=== PATIENT | female | born 1990 | race Caucasian/White ===

== ENCOUNTER 2016-06-08 09:48 | Emergency (ER) | payer OTHER ==
[~2016-06-08] VITALS: Ht 170.2 cm; Wt 70.8 kg
[~2016-06-08 09:48] MED LIST: DICY10CA55 PO; DOCU-94 PO; IUD'IUD
[2016-06-08 09:53] VITALS: Ht 170.2 cm; Wt 70.8 kg
[2016-06-08] MEDS ORDERED: BCPILLS PO (10:25)
[2016-06-08] MEDS ORDERED: LUBI8CAP4 PO (10:25)
--- NOTE | 2016-06-08 11:52 | DIAGNOSTIC IMAGING REPORT ---
PA CHEST RADIOGRAPH AND UPRIGHT AND SUPINE AP RADIOGRAPHS OF THE ABDOMEN CLINICAL HISTORY: Evaluate for bowel obstruction. COMPARISON STUDY: Chest radiograph March 29, [address] of the abdomen and pelvis MarchMarch 29, 2016. FINDINGS: Lung volumes are normal. Lungs are clear. There is no pneumothorax or pleural effusion. Cardiac size is normal. Mediastinal contours are normal. There is no free air. Bowel gas pattern is normal. There is a moderate amount stool within the colon. IMPRESSION: 1. No free air or evidence of bowel obstruction. 2. Moderate amount stool within the colon. 3. No acute cardiopulmonary findings. Electronically signed by: Juanpablo Ralph M.D. 06/08/2016 11:51 AM Dictated Date/Time: 06/08/2016 11:45 AM
[2016-06-08 13:16] VITALS: BP 125/76; PULSE 83; TEMP 36.9; O2SAT 96
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
[2016-09-29] MEDS ORDERED: DICY10CA55 PO (12:33)
[2016-09-29] MEDS ORDERED: LEVOIUD (12:33)
== END 2016-06-08 13:18 | disposition home or self-care (01) ==
LOC: C.EDB 09:50
DX: K59.00 Constipation, unspecified (principal); Z87.820 Personal history of traumatic brain injury; Z80.9 Family history of malignant neoplasm, unspecified; Z83.3 Family history of diabetes mellitus; Z82.49 Family history of ischemic heart disease and other diseases of the circulatory system; Z84.1 Family history of disorders of kidney and ureter

== ENCOUNTER → 2016-10-13 | Day surgery (SDC) | payer OTHER ==
[2016-09-29 12:36] VITALS: BMI 23.0
[~2016-10-13] VITALS: Ht 170.2 cm; Wt 67.3 kg
[~2016-10-13] MED LIST changes: -DOCU-94 PO; -IUD'IUD; +LEVOIUD; +LUBI8CAP4 PO
[2016-10-13 08:28] VITALS: Ht 170.2 cm; Wt 67.3 kg
[2016-10-13 08:36] VITALS: BP 108/65; PULSE 76; TEMP 36.6; O2SAT 100
--- NOTE | 2016-10-14 15:22 | Procedure Note ---
Breath Hydrogen Test Interpretation Assessment: Normal Lactulose breath test Plan: Followup with CARISSA Alicea for further evaluation and recommendations
== END | disposition home or self-care (01) ==
LOC: C.GI 08:17
PROVIDERS: ATTEND Internal Medicine
DX: R14.0 Abdominal distension (gaseous) (principal); R19.4 Change in bowel habit

== ENCOUNTER 2023-12-21 11:46 | Inpatient (IN) ==
[2023-12-21] MEDS ORDERED: LIDOCAINE 1% LOCAL 20 ML VIAL INFIL PRN (17:02)
[2023-12-21] MEDS ORDERED: CALCIUM CARBONATE 500 MG CHEWABLE TAB PO PRN (17:02)
--- NOTE | 2023-12-21 17:11 | History & Physical Report ---
Date of Service December 21, 2023 Assessment & Plan (1) Post-dates : Plan: Cervidil for cervical ripening (2) Gestational diabetes: Admission and Anticipated Discharge Date Admission Date: December 21, 2023 History of Present Illness Chief Complaint: induction of labor Primary Care Provider: Nadine Mata MD 33 F P0000 at 40.4 weeks presents to L&D for IOL for post-dates and GDM diet controlled. GBS is positive. Allergies Allergy/AdvReac Type Severity Reaction Status Date / Time No Known Allergies Allergy Verified 10/13/16 09:11 Home Medications Medication Instructions Recorded Confirmed Type ferrous sulfate 325 mg (65 mg 325 mg PO DAILY 12/21/23 12/21/23 History iron) tablet vit no.95-ferrous 1 tab PO DAILY 12/21/23 12/21/23 History fumarate 28 mg-folic acid 800 mcg tablet () Patient History Medical History Anemia Gestational diabetes Mood disorder Social History Smoking Status: Never smoker Hx Alcohol Use: No Hx Substance Use: No Preferred Language: Maori Communication Ability: Effective Diabetes Territory Manager Required: No Beliefs That Will Affect Care: None marital status: Single Current Living Situation: Significant Other Current Living Situation Comment: lives with significant other Other Information That Helps Us Care for You: No Feels Safe at Home: Yes Safety Concerns: Feels Safe At This Time Assistive Devices: None OB History primip GDM diet controlled [employer] History neg Review of Systems All systems reviewed & are unremarkable except as noted in HPI & below Physical Exam Constitutional: WD/WN, vitals as above Eyes: PERRL, conjunctivae normal, anicteric sclerae Respiratory: normal respiratory effort, lungs clear to auscultation Cardiovascular: Rate/Rhythm: regular rate and regular rhythm Gastrointestinal (Abdomen): Inspection/Auscultation: abdomen normal to inspection Musculoskeletal: Extremities: extremities normal to inspection Skin: no rashes, warm and dry Neurologic: patellar DTR's 2+ bilat, sensation intact Psychiatric: A+Ox3, euthymic affect Genitourinary: no vaginal lesions, no adnexal mass Manual OB Exam: + cervical dilation fingertip, + cervical effacement 50% and + station high OB Exam Monitor Tracing: + external FHT monitor used, + external uterine monitor used, + category I and + normal FHT variability cervix is closed/thick/high/posterior/firm EFW 8 lbs. Will start Cervidil for ripening Results & Data Vital Signs (Past 12 Hours) Vital Signs Temp Pulse Resp BP 12/21/23 15:57 36.6 C 20 12/21/23 15:55 102 H 121/83 Code Status & VTE Plan VTE Prophylaxis Plan VTE Prophylaxis will be ordered: No Monitoring External Monitor Cat 1 (1) Post-dates Post-term type: 40-42 weeks gestation Qualified Code(s): O48.0 - Post-term (2) Gestational diabetes Trimester: third trimester Gestational diabetes mellitus control: diet-contro lled Qualified Code(s): O24.410 - Gestational diabetes mellitus in , diet controlled
[2023-12-21 18:08] LABS: Hematocrit (blood only) 37.2 % (37.0-47.0); Hemoglobin 12.8 g/dl (12.0-16.0); Mean Corpuscular Hemoglobin 30.4 pg (25.0-34.0); Mean Corpuscular Hgb Conc 34.4 g/dL (32.0-36.0); Mean Corpuscular Volume 88.4 fL (80.0-100.0); Platelet Count 194 K/uL (130-400); RDW Coefficient of Variation 13.6 % (11.5-14.5); RDW Standard Deviation 44.3 fL (36.4-46.3); Red Blood Count 4.21 M/uL (4.20-5.40); White Blood Count 10.46 K/ul (4.8-10.8)
[2023-12-21] MEDS: DINOPROSTONE 10 MG INSERT PV ONE (18:38)
--- NOTE | 2023-12-21 18:43 | Labor Progress Brief Note ---
Date of Service December 21, 2023 Assessment & Plan Admission and Anticipated Discharge Date Admission Date: December 21, 2023 Physical Exam Genitourinary: OB Exam Monitor Tracing: + external FHT monitor used, + external uterine monitor used, + category I and + normal FHT variability Cervidil 10 mg placed vaginally Results & Data Vital Signs (Past 12 Hours) Vital Signs Temp Pulse Resp BP 12/21/23 18:00 20 12/21/23 18:00 20 12/21/23 18:00 20 12/21/23 18:00 20 12/21/23 16:30 18 12/21/23 16:30 18 12/21/23 15:57 36.6 C 20 12/21/23 15:55 102 H 121/83
--- OUTSIDE RECORDS SUMMARY | 2023-12-21 23:46 | External Medical Summary | Summary of Care ---
Author Name Unknown Organization [facility] Address [address] [place] [address] Phone [phone] Care Team Providers Care Fire Claims Adjuster Name Role Phone Nadine Mata MD Primary Care Provider [phone] Encounter Details Date Type Department Care Team (Late st Contact Info) Description 11/29/2023 Telephone Key Attendant Obstetrics [facility], [place] [address] [place] [address] [place], Nurse Key Attendant [facility] [address], [place] [id number] Allergies No known active allergiesdocumented as of this encounter (statuses as of 11/29/2023) Medications Medication Sig Dispensed Refills Start Date End Date Status Chapin Owens [place]-3 DHA Oral Tablet Chewable Take 1 Tablet by mouth in the morning. Active Iron-Vitamin C 65-125 MG Oral Tablet (Vitron C)Indications:Antepart um anemia complicating Take 1 Tablet by mouth in the morning. 30 Tablet 5 09/29/2023 Active Docusate Sodium 100 MG Oral Capsule (Colace)Indications:An tepartum anemia complicating Take 1 tablet by mouth twice daily as needed for constipation. 60 Capsule 5 09/29/2023 Active OneTouch Verio Flex System w/Device KitIndications:Gestati onal diabetes mellitus (GDM) in third trimester, gestational diabetes method of control unspecified Use to test blood sugars 4 times daily (fasting, 1 hour after breakfast, lunch, and dinner) 1 Kit 10/17/2023 Active OneTouch Verio In Vitro Strip (Glucose Blood)Indications:Gest ational diabetes mellitus (GDM) in third trimester, gestational diabetes method of control unspecified Use to test blood sugars 4 times daily (fasting, 1 hour after breakfast, lunch, and dinner) 100 Strip 6 10/17/2023 Active OneTouch Delica Lancets 30GIndications:Gestati onal diabetes mellitus (GDM) in third trimester, gestational diabetes method of control unspecified Use to test blood sugars 4 times daily (fasting, 1 hour after breakfast, lunch, and dinner) 100 Each 6 10/17/2023 Active Senna 8.6 MG Oral Capsule Take by mouth. Active documented as of this encounter (statuses as of 11/29/2023) Active Problems Problem Noted Date Diagnosed Date Gestational diabetes mellitus (GDM) in third [facility] 10/17/2023 Overview: Diagnosed at 31 weeks Nutrition referral ordered OneTouch Verio meter Lab Results Component Value Date/Time 50-G GESTATIONAL GLUCOSE, 1 HOUR - [facility] 170 (H) 09/28/2023 09:24 AM 3hr GTT completed at outside lab on 10/17/2023 (per scanned records): FBS - 140 (elevated) 1hr - 183 (elevated) 2hr - 183 (elevated) 3hr - 181 (elevated) 10/23/23: [facility] ADAPT consult complete. Enrolled in [employer]. Instructions provided to report blood sugars each week for [facility] review 10/31/[id number]-[id number]-gvnnyb. Multiple missed post prandial dinner values; messaged to be consistent with testing/reporting. 11/08/[id number]-HZT-[id number] 2 days in the past 8. Sent message via [employer] asking her to update numbers for review. 11/14/[id number] 5 of the past 7 days. 2 elevated fasting blood sugars and rare post prandial elevation 11/22/23: RPM reviewed; no blood sugars reported since 11/13/23. Requested updated blood sugars for this past week to review 11/29/23: RPM reviewed; no blood sugars reported since 11/13/23. Message sent to [facility] PARs to schedule FU ADAPT; patient refused; telephone encounter routed to OB provider Last Assessment & Plan: I reviewed the ultrasound with herThe anatomy that was visualized appears unremarkable and the overall estimated weight is consistent with the 54th percentile for the gestational age. The fetus is in the vertex presentation and the amniotic fluid volume is normal at 12 cm. She states that her blood sugars are well controlled on diet. We discussed the plan of care if she were to need medication to control her blood sugars. At this point, there is no clinical indication for return. Antepartum anemia complicating 024 Overview: Iron started 09/28 once daily. Repeat CBC around 10/26. Order is in. Abnormal glucose tolerance in mother complicatin g 09/29/2023 Overview: 1 hour gtt elevated /7. 3 hour gtt ordered. Encounter for supervision of normal first in first trimester 05/15/2023 Irritable bowel syndrome with constipation 07/06 Mood disorder 03/27/2018 ADVANCE DIRECTIVE INFORMATION 05/12/2005 Overview: Not applicable (under age of 18) Estimated Date of Delivery Comme nts Yes 12/17/2023 Based on last me nstrual period of 03/12/2023 (Exact Date) documented as of this encounter (statuses as of 11/29/2023) Resolved Problems Problem Noted Date Diagnosed Date Resolved Date Viral warts 01/13/2009 03/25/2015 Overview: Tazorac .1% gel at bedtime ICD-10 update of inactive term Adolescent Acne 11/02/2005 03/25/2015 documented as of this encounter (statuses as of 11/29/2023) Immunizations Name Administration Dates Next Due HIB PRP-OMP, 3 dose (Pedvax) 11/13/1990,08/09/18 91 HPV Vaccine, 4-Valent 03/04/2008,11/05/2007,08/2203/07/2008 Meningococcal Conjugate Vacc ine (Menactra/Menveo) 04/19/2017 PPD 03/27/2018, 8,04/19/2017,08/22 Seasonal Influenza, Quadriva lent,with Preserve, 3 yr & above, IM 02/05/2018 Seasonal Influenza, Split, I IV3, With Preserve, Inj 02/10/2017 TDAP (age 10 and older)(Boostrix) 09/28/2023, TDAP, Age 7 and older, IM (Adacel) 05/12/2005 Varicella Vaccine (Chicken Pox) 04/19/2017 documented as of this encounter Social History Tobacco Use Types Packs/Day Years Used Date Smoking Tobacco: Never Smokeless Tobacco: Never Alcohol Use Standard Drinks/Week Comments No 0 (1 standard drink = 0.6 oz pur e alcohol) denies in PHQ-2 Answer Date Recorded PHQ-2 Score -1 07/06/2018 Hunger Vital Sign Answer Date Recorded Within the past 12 months, y ou worried that your food would run out before you got the money to buy more. Never true 08/03/19 24 Within the past 12 months, t he food you bought just didn't last and you didn't have money to get more. Never true 08/03/2023 [place] Depression Scale Answer Date Recorded [place] Depression Scale Total 1 09/28/2023 The thought of harming myself has occurred to me . Never 09/28/2023 Childcare Answer Date Recorded Do you feel overwhelmed with taking care of a child, family member or friend? No 08/03/2023 Does your family need help f inding childcare? (Household - for ages 0-17 years) Not on file 08/03/2023 Clothing Answer Date Recorded Have you been unable to get clothing when it was really needed? No 08/03/2023 Is your family able to get c lothes or diapers when needed? (Household - for ages 0-17 years) Not on file 08/03/2023 Personal Safety Answer Date Recorded Do you feel unsafe or have concerns for your saf ety? No 08/03/2023 Do you have concerns for you r family's safety? (Household - for ages 0-17 years) Not on file 08/03/2023 Utilities Answer Date Recorded Do you have trouble paying y our heating, water, or electric bill? No 08/03/2023 Is your family able to pay t he heat, water, or electric bill? (Household - for ages 0-17 years) Not on file 08/03/2023 Does your family have access to good internet? (Household - for ages 0-17 years) Not on file 08/03/2023 Employment Status Answer Date Recorded Are you unemployed or without regular income? No 08/03/2023 Does the household have a re gular source of income? (Household - for ages 0-17 years) Not on file 08/03/2023 Social Connections Answer Date Recorded How often do you feel lonely or isolated from th ose around you? Never 08/03/2023 Financial Resource Strain Answer Date R ecorded Do you have any trouble payi ng for your medications, or do you think you might in the future? No 08/03/2023 Does your family have troubl e paying for medicine? (Household - for ages 0-17 years) Not on file 08/03/2023 Transportation Needs Answer Date Record ed READ ONLY Do you have troubl e getting a ride to medical visits or work? Never True 08/03/2023 Does your family have a hard time getting a ride to doctors visits? (Household - for ages 0-17 years) Not on file 08/03/2023 Has lack of transportation k ept you from medical appointments, meetings, work, or from getting things needed for daily living? Check all that apply. (Adult - for ages 18 years and over) Not on file 08/03/2023 Do you (or your family) have trouble finding or paying for a ride (transportation)? (Household - for ages 0-17 years) Not on file 08/03/2023 Housing Stability Answer Date Recorded Do you currently live in a s helter or have no steady place to sleep at night? No 08/03/2023 READ ONLY Do you think you a re at risk of becoming homeless? No 08/03/2023 Does your family worry about paying for your home or becoming homeless? (Household - for ages 0-17 years) Not on file 0 08/03/2023 Are you homeless or worried that you might be in the future? (Adult - for ages 18 years and over) Not on file Are you (or your family) hillary eless or worried that you might be in the future? (Household - for ages 0-17 years) Not on file Food Insecurity Answer Date Recorded Do you need food for this week? No 08/03/2023 Are you able to get enough f ood for your family? (Household - for ages 0-17 years) Not on file 08/03/2023 Does your family need food t his week? (Household - for ages 0-17 years) Not on file 08/03/2023 Do you always have enough fo od for your family? (Household - for ages 0-17 years) Not on file 08/03/2023 Estimated Date of Delivery Comme nts Yes 12/17/2023 Based on last me nstrual period of 03/12/2023 (Exact Date) Sex and Gender Information Value Date Recorded Sex Assigned at Female 05/15/2023 1:11 PM EST Gender Identity Female 05/15/2023 1:11 PM EST Sexual Orientation Straight 05/15/2023 1: 11 PM EST Job Start Date Occupation Industry Not on file Not on file Not on file documented as of this encounter Miscellaneous Notes * Telephone Encounter - Carrillo Herrmann CRNP - 11/29/2023 1:26 PM EDT Ms. Johnson has not reported blood sugars to [facility] for review since 11/13/23 despite multiple attempts to contact. She is managed with diet. Can you please ask her to report her blood sugars for [facility] review at her return visit scheduled on 12/01/23. She can update them in the [facility] [employer] [facility] so we can review them Thank you. CARISSA Draper 11/29/2023 1:26 PM * Telephone Encounter - Massiel Alford OSA - 11/29/2023 11:58 AM EDT Patient called back and stated that she wants to decline the follow up ADAPT appointment. She stated that her blood sugars have been fine and that she thinks that she does not need the follow up. I left her know that I would document that in her chart and that I would let the Carrillo Herrmann know. * Telephone Encounter - Massiel Alford OSA - 11/29/2023 11:52 AM EDT Phone call to patient. Left message on [employer] voice mail. Encouraged patient to return call to [facility] to assist with scheduling. Sent MyG documented in this encounter Plan of Treatment Upcoming Encounters Date Type Department Care Team (Late st Contact Info) Description 12/01/2023 9:45 AM EDT Office Visit Gynecology/Obstetrics [facility] [address] [place] [id number] Sowmya Shepard CRNP [address] [place] [address] Health Maintenance Due Date Last Done Comments Depression Screening 07/07/2019 07/06/2018 COVID-19 Vaccine (2022-24 season) 2022 Influenza Vaccine (FLU shot) (#1) 2023 01/04/2023, 02/05/2018, 02/05/2018, Additional history exists Pap Smear 05/15/2026 05/15/2023 Cervical Cancer Screening 05/15/2028 HPV/Co-Test 05/15/2028 05/15/2023 DTaP,Tdap,and Td Vaccines (9 - Td or Tdap) 09/27/2033 09/28/2023, 02/17/2015, 05/12/2005, Additional history exists HPV (Gardasil) Vaccine Completed 8, 11/05/2007, 09/04/2007 Hepatitis B Vaccine Completed 11/13/2013, 12/26/2002, 12/26/2002, Additional history exists MENINGOCOCCAL (MENACTRA/MENVEO) Aged Out 04/19/2017, 04/19/2017 No longer eligibl e based on patient's age to complete this topic Pneumococcal Vaccine: Pediatrics (0 to 5 Years) and At-Risk Patients (6 to 64 Years) Aged Out No longer eligible based on patient's age to complete this topic documented as of this encounter Medical Devices Not on filedocumented as of this encounter Care Teams Fire Claims Adjuster Relationship Specialty Start Date End Date Nadine Mata MD [address] [place] [id number] PCP - General Family Medicine 06/14/19 documented as of this encounter
--- OUTSIDE RECORDS SUMMARY | 2023-12-21 23:46 | External Medical Summary | Summary of Care ---
Author Name Unknown Organization [facility] Address [address] [place] [address] Phone [phone] Care Team Providers Care Bolt Loader Name Role Phone Nadine Mata MD Primary Care Provider [phone] Reason for Visit * Reason Onset Date Comments Appointment 12/01/2023 Encounter Details Date Type Department Care Team (Late st Contact Info) Description 12/01/2023 Telephone [facility] [address] [facility] [place] [address] Sowmya Sehpard CRNP [address] [facility] [place] [place] [address] Appointment Allergies No known active allergiesdocumented as of this encounter (statuses as of 12/19/2023) Medications Medication Sig Dispensed Refills Start Date End Date Status Chapin Owens [place]-3 DHA Oral Tablet Chewable Take 1 Tablet by mouth in the morning. Active Iron-Vitamin C 65-125 MG Oral Tablet (Vitron C)Indications:Antepart um anemia complicating Take 1 Tablet by mouth in the morning. 30 Tablet 5 09/29/2023 Active Docusate Sodium 100 MG Oral Capsule (Colace)Indications:An tepartum anemia complicating Take 1 tablet by mouth twice daily as needed for constipation. 60 Capsule 5 09/29/2023 Active internetstoresTouch Verio Flex System w/Device KitIndications:Gestati onal diabetes [...] as of this encounter (statuses as of 12/19/2023) Active Problems Problem Noted Date Diagnosed Date Gestational diabetes mellitus (GDM) in third [facility] 10/17/2023 Overview: Diagnosed at 31 weeks Nutrition referral ordered OneTouch Verio meter Lab Results Component Value Date/Time 50-G GESTATIONAL GLUCOSE, 1 HOUR - [facility] 170 (H) 09/28/2023 09:24 AM 3hr GTT completed at outside lab on 10/17/2023 (per scanned records): FBS - 140 (elevated) 1hr - 183 (elevated) 2hr - 183 (elevated) 3hr - 181 (elevated) 10/23/23: [facility] ADAPT consult complete. Enrolled in [employer]. Instructions provided to report blood sugars each week for [facility] review 10/31/[id number]-fzhsyu. Multiple missed post prandial dinner values; messaged to be consistent with testing/reporting. 11/08/[id number] 2 days in the past 8. Sent message via [employer] asking her to update numbers for review. 11/14/[id number]-ESS-blkvbedm 5 of the past 7 days. 2 elevated fasting blood sugars and rare post prandial elevation 11/22/23: RPM reviewed; no blood sugars reported since 11/13/23. Requested updated blood sugars for this past week to review 11/29/23: RPM reviewed; no blood sugars reported since 11/13/23. Message sent to [facility] PARs to schedule FU ADAPT; patient refused; telephone encounter routed to OB provider 12/01/23: Per OB note: "checking blood sugars 4 times a day, not logging them or sending to ADAPT. Reports that all readings for several weeks have been in range. She is aware that uncontrolled GDM can cause LGA, polyhydramnios, preeclampsia, stillbirth. Will notify office if readings are elevated or with any concerns." 12/06/[id number]-HVN-jek reporting 12/13/[id number]-LPN-yqo reporting Last Assessment & Plan: I reviewed the [...] Antepartum anemia complicating 024 Overview: Iron started 7 once daily. Repeat CBC around 10/26. Order is in. Abnormal glucose tolerance in mother complicatin g 09/29/2023 Overview: 1 hour gtt elevated 6/7. 3 hour gtt ordered. Encounter for supervision of normal first in first trimester 05/15/2023 Irritable bowel syndrome with constipation 07/06 Mood disorder 03/27/2018 ADVANCE DIRECTIVE INFORMATION 05/12/2005 Overview: Not applicable (under age of 18) Estimated Date of Delivery Comme nts Yes 12/17/2023 Based on last me nstrual period of 03/12/2023 (Exact Date) documented as of this encounter (statuses as of 12/19/2023) Resolved Problems Problem Noted Date Diagnosed Date Resolved Date Viral warts 01/13/2009 03/25/2015 Overview: Tazorac .1% gel at bedtime ICD-10 update of inactive term Adolescent Acne 11/02/2005 03/25/2015 documented as of this encounter (statuses as of 12/19/2023) Immunizations Name Administration Dates Next Due HIB [...] money to get more. Never true 08/03/2023 [place] Depression Scale Answer Date Recorded [place] Depression Scale Total 1 09/28/2023 The thought [...] 08/03/2023 Does the household have a re lar source of income? (Household - for ages [...] encounter Miscellaneous Notes * Telephone Encounter - Josselin Roy OSA - 12/01/2023 10:14 AM EDT Return in about 1 week (around 12/08/2023) for diana. Would like it on the Due to having off workthat day. She said anytime will work. documented in this encounter Plan of Treatment Health Maintenance Due Date Last Done Comments Depression Screening 07/07/2019 07/06/2018 COVID-19 Vaccine (24 season) 2022 Influenza Vaccine (FLU shot) (#1) 2023 01/04/2023, 02/05/2018, 02/05/2018, Additional history exists Pap Smear 05/15/2026 05/15/2023 Cervical Cancer Screening 05/15/2028 HPV/Co-Test 05/15/2028 05/15/2023 DTap/Tdap Vaccines (9 - Td or Tdap) 09/27/2033 [...] filedocumented as of this encounter Care Teams Bolt Loader Relationship Specialty Start Date End Date Nadine Mata MD [address] [place] [id number] PCP - General Family Medicine 06/14/19 documented as of this encounter
--- OUTSIDE RECORDS SUMMARY | 2023-12-21 23:46 | External Medical Summary | Summary of Care ---
Author Name Unknown Organization [facility] Address [address] [facility] [place] [address] Phone [phone] Care Team Providers Care Race Engine Builder Name Role Phone Nadine Mata MD Primary Care Provider [phone] Reason for Visit * Reason Comments Return Visit Encounter Details Date Type Department Care Team (Late st Contact Info) Description 12/15/2023 8:45 AM EDT Office Visit Gynecology/Obstetric s [facility] [address] [place] [address] Scooby Kincaid MD [address] [place] [address] Encounter for supervision of normal first in first trimester*; Diet controlled gestational diabetes mellitus (GDM) in third trimester Allergies No known active allergiesdocumented as of this encounter (statuses as of 12/15/2023) Medications Medication Sig Dispensed Refills Start Date End Date Status Chapin Owens [place]-3 DHA Oral Tablet Chewable Take 1 Tablet [...] lunch, and dinner) 1 Kit 10/17/2023 Active [employer] SystemTouch Verio In Vitro Strip (Glucose Blood)Indications:Gest ational diabetes mellitus (GDM) in third trimester, gestational diabetes method of control unspecified Use to test blood sugars 4 times daily (fasting, 1 hour after breakfast, lunch, and dinner) 100 Strip 6 10/17/2023 Active [employer] DelTextPower Lancets 30GIndications:Gestati onal diabetes mellitus (GDM) in third trimester, gestational diabetes method of control unspecified Use to test blood sugars 4 times daily (fasting, 1 hour after breakfast, lunch, and dinner) 100 Each 6 10/17/2023 Active Senna 8.6 MG Oral Capsule Take by mouth. Active documented as of this encounter (statuses as of 12/15/2023) Active Problems Problem Noted Date Diagnosed Date [facility] Overview: Diagnosed at 31 weeks Nutrition referral ordered OneTouch Verio meter Lab Results Component Value Date/Time 50-G GESTATIONAL GLUCOSE, 1 HOUR - [facility] 170 (H) 09/28/2023 09:24 AM 3hr GTT completed at outside lab on 10/17/2023 (per scanned records): FBS - 140 (elevated) 1hr - 183 (elevated) 2hr - 183 (elevated) 3hr - 181 (elevated) 10/23/23: [facility] ADAPT consult complete. Enrolled in [employer]. Instructions provided to report blood sugars each week for [facility] review 10/31/[id number]-HAD-jnezpb. Multiple missed post prandial dinner values; messaged to be consistent with testing/reporting. 11/08/[id number]-mmxayerp 2 days in the past 8. Sent message via [employer] asking her to update numbers for review. 11/14/[id number]-ISN-phzohjuk 5 of the past 7 days. 2 elevated fasting blood sugars and rare post prandial elevation 11/22/23: RPM reviewed; no blood sugars reported since 11/13/23. Requested updated blood sugars for this past week to review 11/29/23: RPM reviewed; no blood sugars reported since 11/13/23. Message sent to [facility] PARs to schedule FU ADAPT; patient refused; [...] readings are elevated or with any concerns." 12/06/[id number]-ZIF-qer reporting 12/13/[id number]-OHP-jyk reporting Last Assessment & Plan: I reviewed [...] as of this encounter (statuses as of 12/15/2023) Resolved Problems Problem Noted Date Diagnosed Date Resolved Date Viral warts 01/13/2009 03/25/2015 Overview: Tazorac .1% gel at bedtime ICD-10 update of inactive term Adolescent Acne 11/02/2005 03/25/2015 documented as of this encounter (statuses as of 12/15/2023) Immunizations Name Administration Dates Next Due HIB [...] money to get more. 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 She tells providers at visit her sugers are fine Pt is scheduled for induction on on 12/20 EFW is ordered today Discussed c/sec with pt if macrosomia by EFW * Colleen Shahid LPN - 12/15/2023 8:28 AM EDT [id number] Denies any concerns documented in this encounter Plan of Treatment Pending Results Name Type Priority Associated Diagnoses Date /Time US PREG FOLLOW-UP EACH FETUS Medical Imaging Routine 12/15/2023 11:39 AM EDT Scheduled Orders Name Type Priority Associated Diagnoses Orde r Schedule US PREG FOLLOW-UP EACH FETUS Medical Imaging Routine Expected: 2023, Expires: 01/14/2025 Health Maintenance Due Date Last Done Comments Depression Screening 07/07/2019 07/06/2018 COVID-19 Vaccine ( season) 2022 Influenza Vaccine (FLU shot) (#1) [...] Not on filedocumented as of this encounter Visit Diagnoses Diagnosis Encounter for supervision of normal first in first trimester- Primary Supervision of normal first Diet controlled gestational diabetes mellitus (GDM) in third trimester documented in this encounter Care Teams Race Engine Builder Relationship Specialty Start Date End Date Nadine Mata MD [address] [place] [id number] PCP - General Family Medicine 06/14/19 documented as of this encounter
--- OUTSIDE RECORDS SUMMARY | 2023-12-21 23:46 | External Medical Summary | Summary of Care ---
Author Name Unknown Organization [facility] Address [address] [facility] [address] Phone [phone] Care Team Providers Care Loading Machine Operator Name Role Phone Nadine Mata MD Primary Care Provider [phone] Reason for Visit * Reason Comments Return Visit Encounter Details Date Type Department Care Team (Late st Contact Info) Description 12/01/2023 9:45 AM EDT Office Visit Gynecology/Obstetric s Berna Mchugh [address] [place] [address] Sowmya Shepard CRNP [address] [facility] [place] [address] Encounter for supervision of normal first in first trimester*; Diet controlled gestational diabetes mellitus (GDM) in third trimester Allergies No known active allergiesdocumented as of this encounter (statuses as of 12/01/2023) Medications Medication Sig Dispensed Refills Start Date End Date Status Chapin Owens [place]-3 DHA Oral Tablet Chewable Take 1 Tablet [...] lunch, and dinner) 1 Kit 10/17/2023 Active WorkSnugTouch Verio In Vitro Strip (Glucose Blood)Indications:Gest ational diabetes mellitus (GDM) in third trimester, gestational diabetes method of control unspecified Use to test blood sugars 4 times daily (fasting, 1 hour after breakfast, lunch, and dinner) 100 Strip 6 10/17/2023 Active [employer] DelShoppable Lancets 30GIndications:Gestati onal diabetes mellitus (GDM) in third trimester, gestational diabetes method of control unspecified Use to test blood sugars 4 times daily (fasting, 1 hour after breakfast, lunch, and dinner) 100 Each 6 10/17/2023 Active Senna 8.6 MG Oral Capsule Take by mouth. Active documented as of this encounter (statuses as of 12/01/2023) Active Problems Problem Noted Date Diagnosed Date Gestational diabetes mellitus (GDM) in third [facility] 10/17/2023 Overview: Diagnosed at 31 weeks Nutrition [...] blood sugars each week for MFM review 10/31/[id number]-tjfljb. Multiple missed post prandial dinner values; messaged to be consistent with testing/reporting. 11/08/[id number] 2 days in the past 8. Sent message via [employer] asking her to update numbers for review. 11/14/[id number] 5 of the past 7 days. 2 elevated fasting blood sugars and rare post prandial elevation 11/22/23: RPM reviewed; no blood sugars reported since 11/13/23. Requested updated blood sugars for this past week to review 11/29/23: RPM reviewed; no blood sugars reported since 11/13/23. Message sent to [facility] PARs to schedule FU ADAPT; patient [...] g 09/29/2023 Overview: 1 hour gtt elevated 09/28. 3 hour gtt ordered. Encounter for supervision of normal first in first trimester 05/15/2023 Irritable bowel syndrome with constipation 07/06 Mood disorder 03/27/2018 ADVANCE DIRECTIVE INFORMATION 05/12/2005 Overview: Not applicable (under age of 18) Estimated Date of Delivery Comme nts Yes 12/17/2023 Based on last me nstrual period of 03/12/2023 (Exact Date) documented as of this encounter (statuses as of 12/01/2023) Resolved Problems Problem Noted Date Diagnosed Date Resolved Date Viral warts 01/13/2009 03/25/2015 Overview: Tazorac .1% gel at bedtime ICD-10 update of inactive term Adolescent Acne 11/02/2005 03/25/2015 documented as of this encounter (statuses as of 12/01/2023) Immunizations Name Administration Dates Next Due HIB [...] money to get more. Never true 08/03/2023 [place] Depression Scale Answer Date Recorded [place] Depression Scale Total 1 09/28/2023 The thought [...] Sign Reading Time Taken Comments Blood Pressure 118/80 12/01/2023 9:50 AM EDT Pulse - - Temperature - - Respiratory Rate - - Oxygen Saturation - - Inhaled Oxygen Concentration - - Weight 94.3 kg (208 lb) 12/01/2023 9:50 AM EDT Height - - Body Mass Index 32.58 09/28/2023 8:44 AM EDT documented in this encounter Progress Notes * Sowmya Shepard CRNP - 12/01/2023 10:07 AM EDT 37w5d BLE edema at the end of a 12 hour shift, she is wearing compression stockings. Works as an ED nurse. She is checking blood sugars 4 times a day, not logging them or sending to ADAPT. Reports that all readings for several weeks have been in range. She is aware that uncontrolled GDM can cause LGA, polyhydramnios, preeclampsia, stillbirth. Will notify office if readings are elevated or with any concerns. Baby is active. Denies regular contractions, bleeding, LOF. CARISSA Eason * Janki Pressley MED ASSIST - 12/01/2023 9:50 AM EDT 37w5d Denies vaginal bleeding/rom + movements Swelling in hands and feet. documented in this encounter Plan of Treatment [...] trimester documented in this encounter Care Teams Loading Machine Operator Relationship Specialty Start Date End Date Nadine Mata MD [address] [place] [address] PCP - General Family Medicine 06/14/19 documented as of this encounter
--- OUTSIDE RECORDS SUMMARY | 2023-12-21 23:46 | External Medical Summary | Summary of Care ---
Author Name Unknown Organization [facility] Address [address] [place] [address] Phone [phone] Care Team Providers Care Seo Analyst Name Role Phone Nadine Mata MD Primary Care Provider [phone] Encounter Details Date Type Department Care Team (Late st Contact Info) Description 11/29/2023 Telephone Adding Machine Servicer Obstetrics Maternal Medicine, [place] [address] [place] [address] [place], Nurse Adding Machine Servicer [facility] [address] [place], [place] [id number] Allergies No known active allergiesdocumented as of this encounter (statuses as of 11/30/2023) Medications Medication Sig Dispensed Refills Start Date End Date Status Chapin Owens [place]-3 DHA Oral Tablet Chewable Take 1 Tablet [...] as of this encounter (statuses as of 11/30/2023) Active Problems Problem Noted Date Diagnosed Date Gestational diabetes mellitus (GDM) in third [facility] 10/17/2023 Overview: Diagnosed at 31 weeks Nutrition referral ordered OneTouch Verio meter Lab Results Component Value Date/Time 50-G GESTATIONAL GLUCOSE, 1 HOUR - [facility] 170 (H) 09/28/2023 09:24 AM 3hr GTT completed at outside lab on 10/17/2023 (per scanned records): FBS - 140 (elevated) 1hr - 183 (elevated) 2hr - 183 (elevated) 3hr - 181 (elevated) 10/23/23: [facility] ADAPT consult complete. Enrolled in [employer]. Instructions provided to report blood sugars each week for [facility] review 10/31/[id number]-nrolgs. Multiple missed post prandial dinner values; messaged to be consistent with testing/reporting. 11/08/[id number] 2 days in the past 8. Sent message via [employer] asking her to update numbers for review. 11/14/[id number] 5 of the past 7 days. 2 elevated fasting blood sugars and rare post prandial elevation 11/22/23: RPM reviewed; no blood sugars reported since 11/13/23. Requested updated blood sugars for this past week to review 11/29/23: RPM reviewed; no blood sugars reported since 11/13/23. Message sent to [facility] PARs to schedule FU ADAPT; patient [...] as of this encounter (statuses as of 11/30/2023) Resolved Problems Problem Noted Date Diagnosed Date Resolved Date Viral warts 01/13/2009 03/25/2015 Overview: Tazorac .1% gel at bedtime ICD-10 update of inactive term Adolescent Acne 11/02/2005 03/25/2015 documented as of this encounter (statuses as of 11/30/2023) Immunizations Name Administration Dates Next Due DTaP Dipth/Tet/Acell Pertussis (Infanrix), Peds 10/07/1993,05/14/1991,1989,08/22,1989 HIB PRP-OMP, 3 dose (Pedvax) 11/13/1990,08/09/18 91,07/04/1990 HPV Vaccine, 4-Valent 03/04/2008,11/05/2007,08/2203/07/2008 Hepatitis B, 0-19 yrs 12/26/2002, 997,10/21/1996,10/22 MMR - Measles/Mumps/Rubella Vaccine 10/21/1996,0 08/09/1990 Meningococcal Conjugate Vacc ine (Menactra/Menveo) 04/19/2017 OPV - Polio Virus Vaccine (Oral) 994,05/14/1991,08/09/1990,08/22,1989 PPD 03/27/2018, 8,04/19/2017,08/22 Seasonal Influenza, Quadriva lent,with Preserve, 3 yr & above, IM 02/05/2018 Seasonal Influenza, Split, I IV3, With Preserve, Inj 02/10/2017 TDAP (age 10 and older)(Boostrix) 09/28/2023, TDAP, Age 7 and older, IM (Adacel) 05/12/2005 Varicella Vaccine (Chicken Pox) 04/19/2017,07/29 documented as of this encounter Social History [...] money to get more. Never true 08/03/2023 [place] Depression Scale Answer Date Recorded [place] Depression Scale Total 1 09/28/2023 The thought [...] No 08/03/2023 Does the household have a [facility] source of income? (Household - for ages [...] encounter Miscellaneous Notes * Telephone Encounter - Kerri Abdi LPN - 11/30/2023 8:41 AM EDT Call to pt, pt states she has not been logging them. States she is checking her glucose levels and thye have been really good. 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 Expressed importance to pt. Kerri Abdi LPN * Telephone Encounter - Carrillo Herrmann CRNP - 11/29/2023 1:26 PM EDT Ms. Johnson has not reported blood sugars to [facility] for review since 11/13/23 despite multiple attempts to contact. She is managed with diet. Can you please ask her to report her blood sugars for [facility] review at her return visit scheduled on [...] Phone call to patient. Left message on [employer]'s voice mail. Encouraged patient to return call to [facility] to assist with scheduling. Sent MyG documented in this encounter Plan of Treatment Upcoming Encounters Date Type Department Care Team (Late st Contact Info) Description 12/01/2023 9:45 AM EDT Office Visit Gynecology/Obstetrics [facility] [address] [place] [address] Sowmya Shepard CRNP [address] [place] [address] Health Maintenance Due Date Last Done Comments Depression Screening 07/07/2019 07/06/2018 COVID-19 Vaccine (2022- season) 2022 Influenza Vaccine (FLU shot) (#1) [...] filedocumented as of this encounter Care Teams Seo Analyst Relationship Specialty Start Date End Date Nadine Mata MD [address] [place] [address] PCP - General Family Medicine 06/14/19 documented as of this encounter
--- OUTSIDE RECORDS SUMMARY | 2023-12-21 23:46 | External Medical Summary | Summary of Care ---
Author Name Unknown Organization [facility] Address [address] [place] [address] Phone [phone] Care Team Providers Care Client Service Associate Name Role Phone Nadine Mata MD Primary Care Provider [phone] Encounter Details Date Type Department Care Team (Late st Contact Info) Description 11/29/2023 Telephone Home Hospice Rn Obstetrics Maternal Medicine, [place] [address] [place] [address] [place], Nurse Home Hospice Rn [facility] [address] [place], [place] [id number] Allergies No known active allergiesdocumented as of this encounter (statuses as of 11/30/2023) Medications Medication Sig Dispensed Refills Start Date End Date Status Chapin Owens [place]-3 DHA Oral Tablet Chewable Take 1 Tablet [...] Date Gestational diabetes mellitus (GDM) in third [facility] 10/17/2023 Overview: Diagnosed at 31 weeks Nutrition referral ordered OneTouch Verio meter Lab Results Component Value Date/Time 50-G GESTATIONAL GLUCOSE, 1 HOUR - [facility] 170 (H) 09/28/2023 09:24 AM 3hr GTT completed at outside lab on 10/17/2023 (per scanned records): FBS - 140 (elevated) 1hr - 183 (elevated) 2hr - 183 (elevated) 3hr - 181 (elevated) 10/23/23: [facility] ADAPT consult complete. Enrolled in [employer]. Instructions provided to report blood sugars each week for [facility] review 10/31/[id number]-hfbcht. Multiple missed post prandial dinner values; messaged to be consistent with testing/reporting. 11/08/[id number]-xcoycafj 2 days in the past 8. Sent message via [employer] asking her to update numbers for review. 11/14/[id number]-tozzhpsn 5 of the past 7 days. 2 elevated fasting blood sugars and rare post prandial elevation 11/22/23: RPM reviewed; no blood sugars reported since 11/13/23. Requested updated blood sugars for this past week to review 11/29/23: RPM reviewed; no blood sugars reported since 11/13/23. Message sent to [facility] PARs to schedule FU ADAPT; patient refused; [...] money to get more. Never true 08/03/2023 [place] Depression Scale Answer Date Recorded [place] Depression Scale Total 1 09/28/2023 The thought [...] No 08/03/2023 Does the household have a [facility] source of income? (Household - [...] Telephone Encounter - Carrillo Herrmann CRNP - 11/30/2023 9:52 AM EDT Thank you for taking the time to call. Please discuss and document with the patient at her next visits the risks of not having her blood sugars reviewed regularly including by not limited tointrauterine demise, preeclampsia, and other maternal and complications. Ms. Johnson is scheduled to have a return visit on 12/01/23 CARISSA Draper 11/30/2023 9:55 AM * Telephone Encounter - Kerri Abdi LPN [...] Johnson has not reported blood sugars to [facility] for review since 11/13/23 despite multiple attempts to contact. She is managed with diet. Can you please ask her to report her blood sugars for MFM review at her return visit scheduled on [...] Phone call to patient. Left message on [employer]'s voice mail. Encouraged patient to return call to [facility] to assist with scheduling. Sent MyG documented in this encounter Plan of Treatment Upcoming Encounters Date Type Department Care Team (Late st Contact Info) Description 12/01/2023 9:45 AM EDT Office Visit [place]necology[place]st[place]s [place] [facility] [address] [place] [address] Sowmya Shepard CRNP [address] [place] [address] Health Maintenance Due Date Last Done Comments [...] filedocumented as of this encounter Care Teams Client Service Associate Relationship Specialty Start Date End Date Nadine Mata MD [address] [place] [id number] PCP - General Family Medicine 06/14/19 documented as of this encounter
--- OUTSIDE RECORDS SUMMARY | 2023-12-21 23:46 | External Medical Summary | Summary of Care ---
Author Name Unknown Organization [facility] Address [address] [place] [address] Phone [phone] Care Team Providers Care Secondary Connector Armature Name Role Phone Nadine Mata MD Primary Care Provider [phone] Encounter Details Date Type Department Care Team (Late st Contact Info) Description 11/29/2023 Telephone Consulting Psychologist Obstetrics Maternal Medicine, [place] [address] [place] [address] [place], Nurse Consulting Psychologist [facility] [address] [place], [place] [phone] Allergies No known active allergiesdocumented as of this encounter (statuses as of 12/01/2023) Medications Medication Sig Dispensed Refills Start Date End Date Status Chapin Owens [place]-3 DHA Oral Tablet Chewable Take 1 Tablet [...] 183 (elevated) 3hr - 181 (elevated) 10/23/23: [facility] ADAPT consult complete. Enrolled in [employer]. Instructions provided to report blood sugars each week for [facility] review 10/31/[id number]-MUT-qjdodk. Multiple missed post prandial dinner values; messaged to be consistent with testing/reporting. 11/08/[id number]-phcmjwwm 2 days in the past 8. Sent message via [employer] asking her to update numbers for review. 11/14/[id number]-wxubxhgn 5 of the past 7 days. 2 elevated fasting blood sugars and rare post prandial elevation 11/22/23: RPM reviewed; no blood sugars reported since 11/13/23. Requested updated blood sugars for this past week to review 11/29/23: RPM reviewed; no blood sugars reported since 11/13/23. Message sent to [facility] PARs to schedule FU ADAPT; patient [...] 12/01/2023) Immunizations Name Administration Dates Next Due DTaP [...] money to get more. Never true 08/03/2023 [place] Depression Scale Answer Date Recorded [place] Depression Scale Total 1 09/28/2023 The thought [...] No 08/03/2023 Does the household have a [facility] source of income? (Household - for ages [...] encounter Miscellaneous Notes * Telephone Encounter - Sowmya Shepard CRNP - 12/01/2023 11:07 AM EDT We discussed risks and complications of not checking blood sugars, pt verbalized understanding. Pt states she is testing blood sugar 4 times a day, every day, and all numbers are in range. States shewill let us know if they are not in range, but does not plan to record them. Message as FYI. * Telephone Encounter - Carrillo Herrmann CRNP [...] Johnson has not reported blood sugars to [facility] for review since 11/13/23 despite multiple [...] Phone call to patient. Left message on [employer]'s voice mail. Encouraged patient to return call to [facility] to assist with scheduling. Sent MyG [...] filedocumented as of this encounter Care Teams Secondary Connector Armature Relationship Specialty Start Date End Date Nadine Mata MD [address] [place] [address] PCP - General Family Medicine 06/14/19 documented as of this encounter"
--- OUTSIDE RECORDS SUMMARY | 2023-12-21 23:47 | External Medical Summary | Summary of Care ---
Author Name Unknown Organization [facility] Address [address] [place] [address] Phone [phone] Care Team Providers Care Assistant Banquet Manager Name Role Phone Nadine Mata MD Primary Care Provider [phone] Encounter Details Date Type Department Care Team (Late st Contact Info) Description 10/19/2023 Orders Only Gynecology/Obstetrics [facility] [address] [place] [address] Blanca Johnson PA-C [address] [place] [address] Allergies No known active allergiesdocumented as of this encounter (statuses as of 10/19/2023) Medications Medication Sig Dispensed Refills Start Date End Date Status Chapin Owens [place]-3 DHA Oral Tablet Chewable Take 1 Tablet by mouth in the morning. Active Iron-Vitamin C 65-125 MG Oral Tablet (Vitron C)Indications:Antepart um anemia complicating Take 1 Tablet by mouth in the morning. 30 Tablet 5 09/29/2023 Active Docusate Sodium 100 MG Oral Capsule (Colace)Indications:An tepartum anemia complicating Take 1 tablet by mouth twice daily as needed for constipation. 60 Capsule 5 09/29/2023 Active TerrafugiaTouch Verio Flex System w/Device KitIndications:Gestati onal diabetes [...] dinner) 100 Strip 6 10/17/2023 Active OneTouch Dellilibeth Lancets 30GIndications:Gestati onal diabetes mellitus (GDM) in third trimester, gestational diabetes method of control unspecified Use to test blood sugars 4 times daily (fasting, 1 hour after breakfast, lunch, and dinner) 100 Each 6 10/17/2023 Active documented as of this encounter (statuses as of 10/19/2023) Active Problems Problem Noted Date Diagnosed Date Gestational diabetes mellitus (GDM) in third [facility] 10/17/2023 Antepartum anemia complicating 024 Overview: Iron started [...] on last me nstrual period of 03/12/2023 documented as of this encounter (statuses as of 10/19/2023) Resolved Problems Problem Noted Date Diagnosed Date Resolved Date Viral warts 01/13/2009 03/25/2015 Overview: Tazorac .1% gel at bedtime ICD-10 update of inactive term Adolescent Acne 11/02/2005 03/25/2015 documented as of this encounter (statuses as of 10/19/2023) Immunizations Name Administration Dates Next Due HIB [...] drink = 0.6 oz pur e alcohol) rare PHQ-2 Answer Date Recorded PHQ-2 Score -1 [...] money to get more. Never true 08/03/2023 [place] Depression Scale Answer Date Recorded [place] Depression Scale Total 1 09/28/2023 The thought [...] on last me nstrual period of 03/12/2023 Sex and Gender Information Value Date Recorded Sex Assigned at Female 05/15/2023 1:11 PM EST Gender Identity Female 05/15/2023 1:11 PM EST Sexual Orientation Straight 05/15/2023 1: 11 PM EST Job Start Date Occupation Industry Not on file Not on file Not on file documented as of this encounter Plan of Treatment Upcoming Encounters Date Type Department Care Team (Late st Contact Info) Description 10/23/2023 9:45 AM EDT Telemedicine Paper Maker Obstetrics Maternal Medicine, [place] [address] [address] Blanca Hernandez CRNP [address] [place] [address] 10/24/2023 3:00 PM EDT Telemedicine Virtual, Nutrition Services [address] [place] [address] Hayde Hayden, JEFFREY [address] [place] [address] [place] [address] 10/30/2023 7:30 AM EDT Office Visit Gynecology/Obstetrics [address] [place] [address] Laura Goldman PA-C [address] [place] [address] Nurse [facility] Return Di [address] [place] [address] 10/31/2023 7:30 AM EDT Office Visit Paper Maker OB Maternal Medicine [facility] Gabby Santo [address] [place] [address] [address] [place] [address] Da Loco MD [address] [place] [facility] [place] [address] 10/31/2023 7:30 AM EDT Imaging Maternal Medicine [facility] Gabby Santo [address] [place] [address] [address] [place] [address] Health Maintenance Due Date Last Done Comments Depression Screening 07/07/2019 07/06/2018 COVID-19 Vaccine ( season) 2022 Pap Smear 05/15/2026 05/15/2023 Cervical Cancer Screening 05/15/2028 HPV/Co-Test 05/15/2028 05/15/2023 DTaP,Tdap,and Td Vaccines (9 - Td or Tdap) 09/27/2033 09/28/2023, 02/17/2015, 05/12/2005, Additional history exists GARDASIL-HPV IMMUNIZATION SERIES Completed 03/04/2008, 11/05/2007, 09/04/2007 Hepatitis B Completed 11/13/2013, 07/2002, 12/26/2002, Additional history exists MENINGOCOCCAL (MENACTRA/MENVEO) Aged Out 04/19/2017, 04/19/2017 No longer eligibl e based on patient's age to complete this topic Influenza Vaccine (FLU shot) Completed , 02/05/2018, 02/05/2018, Additional history exists Pneumococcal Vaccine: Pediatrics (0 to 5 Years) and At-Risk Patients (6 to 64 Years) Aged Out No longer eligible based on patient's age to complete this topic documented as of this encounter Medical Devices Not on filedocumented as of this encounter Care Teams Assistant Banquet Manager Relationship Specialty Start Date End Date Nadine Mata MD [address] [place] [address] PCP - General Family Medicine 06/14/19 documented as of this encounter
--- OUTSIDE RECORDS SUMMARY | 2023-12-21 23:47 | External Medical Summary | Summary of Care ---
Author Name Unknown Organization [facility] Address [address] [facility] [place] [address] Phone [phone] Care Team Providers Care Supervisor White Sugar Name Role Phone Nadine Mata MD Primary Care Provider [phone] Reason for Visit * Reason Comments Return Visit Encounter Details Date Type Department Care Team (Late st Contact Info) Description 11/13/2023 8:45 AM EDT Office Visit Gynecology/Obstetri julianne Mchugh [address] [place] [address] Laura Goldman PA-C [address] [place] [address] Nurse Jeison [facility] Return Di [address] [place] [address] Encounter for supervision of normal first in first trimester*; Diet controlled gestational diabetes mellitus (GDM) in third trimester Allergies No known active allergiesdocumented as of this encounter (statuses as of 11/13/2023) Medications Medication Sig Dispensed Refills Start Date End Date Status Chapin Owens [place]-3 DHA Oral Tablet Chewable Take 1 Tablet [...] as of this encounter (statuses as of 11/13/2023) Active Problems Problem Noted Date Diagnosed Date Gestational diabetes mellitus (GDM) in third [facility] 10/17/2023 Overview: Diagnosed at 31 weeks Nutrition referral ordered OneTouch Verio meter Lab Results Component Value Date/Time 50-G GESTATIONAL GLUCOSE, 1 HOUR - [facility] 170 (H) 09/28/2023 09:24 AM 3hr GTT completed at outside lab on 10/17/2023 (per scanned records): FBS - 140 (elevated) 1hr - 183 (elevated) 2hr - 183 (elevated) 3hr - 181 (elevated) She reports her home blood glucose as following: DATE Fasting 1 hr after Breakfast 1 hr after Lunch 1 hr after Dinner 10/18/23 78 90 104 118 10/19/23 74 91 96 106 10/20/23 95 100 116 143 10/21/23 81 94 96 129 10/22/23 85 117 102 143 10/23/23 87 x x x 10/23/23: MFM ADAPT consult complete. Enrolled in [employer]. Instructions provided to report blood sugars each week for MFM review 10/31/[id number]-[id number]. Multiple missed post prandial dinner values; messaged to be consistent with testing/reporting. 11/08/[id number]-yohscyiy 2 days in the past 8. Sent message via [employer] asking her to update numbers for review. Last Assessment & Plan: I reviewed the [...] as of this encounter (statuses as of 11/13/2023) Resolved Problems Problem Noted Date Diagnosed Date Resolved Date Viral warts 01/13/2009 03/25/2015 Overview: Tazorac .1% gel at bedtime ICD-10 update of inactive term Adolescent Acne 11/02/2005 03/25/2015 documented as of this encounter (statuses as of 11/13/2023) Immunizations Name Administration Dates Next Due HIB [...] money to get more. Never true 08/03/2023 [place] Depression Scale Answer Date Recorded [place] Depression Scale Total 1 09/28/2023 The thought [...] 18 years and over) Not on file 4 Are you (or your family) hillary eless [...] Sign Reading Time Taken Comments Blood Pressure 98/58 11/13/2023 8:49 AM EDT Pulse - - Temperature - - Respiratory Rate - - Oxygen Saturation - - Inhaled Oxygen Concentration - - Weight 90 kg (198 lb 6.4 oz) 11/13/2023 8:49 AM EDT Height - - Body Mass Index 31.07 09/28/2023 8:44 AM EDT documented in this encounter Progress Notes * Laura Goldman PA-C - 11/13/2023 9:01 AM EDT 35w1d Has been trying to report BG when she can. States hard with work as not always able to submit rightaway then it will disappear from glucometer. Denies any elevations. Continues to make adjustments in diet to keep it controlled. Recommend she continue to reports as often as possible. Reviewed GBS with next visit. Denies LOF, contractions, VB. Pos fm. RTC in 1 week Laura Goldman PA-C * Janki Pressley MED ASSIST - 11/13/2023 8:49 AM EDT 35w1d Denies vaginal bleeding/rom + movements No new concerns documented in this encounter Plan of Treatment Upcoming Encounters Date Type Department Care Team (Late st Contact Info) Description 11/23/2023 11:15 AM EDT Office Visit Gynecology/Obstetrics [facility] [address] [place] [address] Radha Santillan MD [address] [address] Health Maintenance Due Date Last Done Comments [...] trimester documented in this encounter Care Teams Supervisor White Sugar Relationship Specialty Start Date End Date Nadine Mata MD [address] [place] [address] PCP - General Family Medicine 06/14/19 documented as of this encounter
--- OUTSIDE RECORDS SUMMARY | 2023-12-21 23:47 | External Medical Summary | Summary of Care ---
Author Name Unknown Organization [facility] Address [address] [place] [address] Phone [phone] Care Team Providers Care Wheelman Name Role Phone Nadine Mata MD Primary Care Provider [phone] Encounter Details Date Type Department Care Team (Late st Contact Info) Description 10/17/2023 Telephone Gynecology/Obstetrics [facility] [address] [facility] [place] [address] Blanca Johnson PA-C [address] [facility] [place] [address] Allergies No known active allergiesdocumented as of this encounter (statuses as of 10/17/2023) Medications Medication Sig Dispensed Refills Start Date End Date Status Chapin Owens [place]-3 DHA Oral Tablet Chewable Take 1 Tablet by mouth in the morning. Active Iron-Vitamin C 65-125 MG Oral Tablet (Vitron C)Indications:Antepart um anemia complicating Take 1 Tablet by mouth in the morning. 30 Tablet 5 09/29/2023 Active Docusate Sodium 100 MG Oral Capsule (Colace)Indications:An tepartum anemia complicating Take 1 tablet by mouth twice daily as needed for constipation. 60 Capsule 5 09/29/2023 Active documented as of this encounter (statuses as of 10/17/2023) Active Problems Problem Noted Date Diagnosed Date Antepartum anemia complicating 06/07/2 024 Overview: Iron started 7 once daily. [...] as of this encounter (statuses as of 10/17/2023) Resolved Problems Problem Noted Date Diagnosed Date Resolved Date Viral warts 01/13/2009 03/25/2015 Overview: Tazorac .1% gel at bedtime ICD-10 update of inactive term Adolescent Acne 11/02/2005 03/25/2015 documented as of this encounter (statuses as of 10/17/2023) Immunizations Name Administration Dates Next Due HIB [...] money to get more. Never true 08/03/2023 [place] Depression Scale Answer Date Recorded [place] Depression Scale Total 1 09/28/2023 The thought [...] encounter Miscellaneous Notes * Telephone Encounter - Wendy Morton RN - 10/17/2023 12:58 PM EDT Received patient's 3 hour glucose results by fax from outside lab. Please review and advise. They are scanned into chart. documented in this encounter Plan of Treatment Upcoming Encounters Date Type Department Care Team (Late st Contact Info) Description 10/30/2023 7:30 AM EDT Office Visit Gynecology/Obstetrics Berna Mchugh [address] [place] [address] Laura Goldman PA-C [address] [place] [address] Nurse Jeison [facility] Return Di [address] [place] [address] Health Maintenance Due Date Last Done Comments [...] filedocumented as of this encounter Care Teams Wheelman Relationship Specialty Start Date End Date Nadine Mata MD [address] [place] [address] PCP - General Family Medicine 06/14/19 documented as of this encounter
--- OUTSIDE RECORDS SUMMARY | 2023-12-21 23:47 | External Medical Summary | Summary of Care ---
Author Name Unknown Organization [facility] Address [address] [place] [address] Phone [phone] Care Team Providers Care Cut In Worker Name Role Phone Nadine Mata MD Primary Care Provider [phone] Reason for Visit * Reason Comments Outpatient Testing Encounter Details Date Type Department Care Team (Late st Contact Info) Description 11/13/2023 9:20 AM EDT Laboratory Laboratory, [facility] [address] [place] [phone] [facility] [address] [place] [address] Antepartum anemia complicating Allergies No known active allergiesdocumented as of this encounter (statuses as of 11/13/2023) Medications Medication Sig Dispensed Refills Start Date End Date Status Chapin Owens [place]-3 DHA Oral Tablet Chewable Take 1 Tablet by mouth in the morning. Active Iron-Vitamin C 65-125 MG Oral Tablet (Vitron C)Indications:Antepart um anemia complicating Take 1 Tablet by mouth in the morning. 30 Tablet 5 09/29/2023 Active Docusate Sodium 100 MG Oral Capsule (Colace)Indications:An tepartum anemia complicating Take 1 tablet by mouth twice daily as needed for constipation. 60 Capsule 5 09/29/2023 Active INSOMENIAToBioPetroClean Verio Flex System w/Device KitIndications:Gestati onal diabetes [...] dinner) 100 Strip 6 10/17/2023 Active OneTouch DelPharmaIN Lancets 30GIndications:Gestati onal diabetes mellitus (GDM) in [...] Date Gestational diabetes mellitus (GDM) in third [facility] 10/17/2023 Overview: Diagnosed at 31 weeks Nutrition [...] 10/23/23: MFM ADAPT consult complete. Enrolled in [employer]. Instructions provided to report blood sugars each week for MFM review 10/31/20235126-AOF-vekytc. Multiple missed post prandial dinner values; messaged to be consistent with testing/reporting. 11/08/20232722-BUF-qtbiowtf 2 days in the past 8. Sent message via [employer] asking her to update numbers for review. [...] g 09/29/2023 Overview: 1 hour gtt elevated /. 3 hour gtt ordered. Encounter for supervision [...] money to get more. Never true 08/03/2023 [place] Depression Scale Answer Date Recorded [place] Depression Scale Total 1 09/28/2023 The thought [...] 11/23/2023 11:15 AM EDT Office Visit Gynecology/Obstetrics [facility] 132 [facility] [place] [address] Radha Santillan MD [address] [place] [address] [place] [phone] Pending Results Name Type Priority Associated Diagnoses Date /Time CBC WITH WBC DIFFERENTIAL AND ANEMIA REFLEX WORKUP Lab Routine Antepartum anemia complicating 11/13/2023 9:19 AM EDT ANEMIA CBC Lab Routine Antepartum anemia complicating 11/13/2023 9:19 AM EDT DIFFERENTIAL, AUTOMATED Lab Routine Antepartum anemia complicating 11/13/2023 9:19 AM EDT ANEMIA REFLEX CHEMISTRY HOLD Lab Routine Antepartum anemia complicating 11/13/2023 9:19 AM EDT Health Maintenance Due Date Last Done Comments [...] as of this encounter Visit Diagnoses Diagnosis Antepartum anemia complicating Anemia, antepartum documented in this encounter Care Teams Cut In Worker Relationship Specialty Start Date End Date Nadine Mata MD [address] [place] [id number] PCP - General Family Medicine 06/14/19 documented as of this encounter
--- OUTSIDE RECORDS SUMMARY | 2023-12-21 23:47 | External Medical Summary | Summary of Care ---
Author Name Unknown Organization [facility] Address [address] [place] [address] Phone [phone] Care Team Providers Care Skirt Panel Assembler Name Role Phone Nadine Mata MD Primary Care Provider [phone] Encounter Details Date Type Department Care Team (Late st Contact Info) Description 10/17/2023 Telephone Gynecology/Obstetrics [facility] 132 [facility] [place] [address] Blanca Johnson PA-C 400 [facility] [place] [address] Allergies No known active allergiesdocumented as of this encounter (statuses as of 10/17/2023) Medications Medication Sig Dispensed Refills Start Date End Date Status Chapin Owens [place]-3 DHA Oral Tablet Chewable Take 1 Tablet [...] money to get more. Never true 08/03/2023 [place] Depression Scale Answer Date Recorded [place] Depression Scale Total 1 09/28/2023 The thought [...] Berna Mchugh [address] [place] [address] Laura Goldman PA-C [address] [place] [address] Nurse Jeison [facility] Return Di [address] [place] [address] Health Maintenance Due Date Last Done Comments [...] filedocumented as of this encounter Care Teams Skirt Panel Assembler Relationship Specialty Start Date End Date Nadine Mata MD [address] [place] [address] PCP - General Family Medicine 06/14/19 documented as of this encounter
--- OUTSIDE RECORDS SUMMARY | 2023-12-21 23:47 | External Medical Summary | Summary of Care ---
Author Name Unknown Organization [facility] Address [address] [place] [address] Phone [phone] Care Team Providers Care Rim Buster Name Role Phone Nadine Mata MD Primary Care Provider [phone] Reason for Visit * Reason Onset Date Comments Home Monitoring Orders Only 10/24/2023 Encounter Details Date Type Department Care Team (Late st Contact Info) Description 10/24/2023 Home Monitoring Care Coordination [address] [place] [address] Blanca Hernandez CRNP [address] [place] [address] Gestational diabetes mellitus (GDM) in third trimester* Allergies No known active allergiesdocumented as of this encounter (statuses as of 10/24/2023) Medications Medication Sig Dispensed Refills Start Date End Date Status Chapin Owens [place]-3 DHA Oral Tablet Chewable Take 1 Tablet [...] dinner) 100 Strip 6 10/17/2023 Active OneTouch DelIntelligent Mobile Support Lancets 30GIndications:Gestati onal diabetes mellitus (GDM) in third trimester, gestational diabetes method of control unspecified Use to test blood sugars 4 times daily (fasting, 1 hour after breakfast, lunch, and dinner) 100 Each 6 10/17/2023 Active Senna 8.6 MG Oral Capsule Take by mouth. Active documented as of this encounter (statuses as of 10/24/2023) Active Problems Problem Noted Date Diagnosed Date Gestational diabetes mellitus (GDM) in third [facility] 10/17/2023 Overview: Diagnosed at 31 weeks Nutrition [...] blood sugars each week for MFM review Last Assessment & Plan: CONSIDERATIONS: Reviewed etiology and risks associated with gestational diabetes mellitus (GDM), including risks to , fetus, and maternal progression to Type 2 DM. Instructed on proper use of glucometer; supplies ordered, if indicated. Advised that life-long screening for diabetes is recommended every 1-3 years. RECOMMENDATIONS: Recommend monitoring blood sugars with daily fasting blood sugar (maintained at less than or equal to 95) and 1 hour postprandial measurements (maintained at less than or equal to 140). Medications should be adjusted to maintain these target values. Report levels to MFM (Maternal- Medicine) weekly. Recommend nutrition consult with RDN (Registered Dietitian Beef Pluck Trimmer). Lifestyle changes are also indicated including optimizing gestational weight gain and physical activity of 30 minutes per day, if not otherwise contraindicated in . Insulin is preferred if medications are indicated to optimize euglycemia. Metformin (preferred over glyburide) may also be used in some circumstances. Reviewed the risks and benefits of each. Recommend ultrasound, surveillance and delivery as follows: A1GDM, delivery should be accomplished by 41w0d. A2GDM, recommend growth assessment with MFM every 4 weeks, initiate surveillance at 32 weeks and continue until delivery at 39 weeks. Recommend intrapartum monitoring every 1-2 hours (A2GDM) or every 4 hours (A1GDM) and treat with insulin if indicated. Recommend 2-hour glucose tolerance testing with 75-gram glucose load 6-8 weeks . Antepartum anemia complicating 024 Overview: Iron started [...] as of this encounter (statuses as of 10/24/2023) Resolved Problems Problem Noted Date Diagnosed Date Resolved Date Viral warts 01/13/2009 03/25/2015 Overview: Tazorac .1% gel at bedtime ICD-10 update of inactive term Adolescent Acne 11/02/2005 03/25/2015 documented as of this encounter (statuses as of 10/24/2023) Immunizations Name Administration Dates Next Due HIB [...] money to get more. Never true 08/03/2023 [place] Depression Scale Answer Date Recorded [place] Depression Scale Total 1 09/28/2023 The thought [...] No 08/03/2023 Does the household have a [facility] source of income? (Household - for [...] on file documented as of this encounter Progress Notes * Douglas Barroso, Community Health Clinical Practice Consultant - 10/24/2023 9:28 AM EDT Patient has been successfully enrolled to the [id number] Diabetes Management in program. Standard alarm settings have been set as follows: Singular glucose level > 200 Singular glucose level < 60 Patient has been advised to take blood sugar four times a day (fasting upon waking, and one hour after each meal). Patient has been oriented to remote patient monitoring, assisted with initial device set-up, and provided with instruction and education regarding the program. Patient understands that this monitoring should not be used as a replacement for emergency and/or urgent care. If patient experiences any urgent symptoms, they are aware to call office/news correspondent provider for additional instructions. In emergency situations, they will report directly to the ED for further evaluation. If you would like to customize the alert parameters and/or instructions for this patient, please let me know and we can have them changed. Electronically signed by Douglas Barroso Community Health Clinical Practice Consultant at 10/24/2023 9:29 AM EDT documented in this encounter Plan of Treatment Upcoming Encounters Date Type Department Care Team (Late st Contact Info) Description 10/30/2023 7:30 AM EDT Office Visit Gynecology/Obstetrics Berna Mchugh [address] [facility] [place] [address] Laura Goldman PA-C [address] [place] [address] Nurse Jeison [facility] Return Di [address] [place] [address] 10/31/2023 7:30 AM EDT Office Visit Industrial Relations Representative OB Maternal Medicine [facility] Gabby Santo [address] [place] [address] [address] [place] [address] Da Loco MD [address] [place] [address] 10/31/2023 7:30 AM EDT Imaging Maternal Medicine [facility] Gabby Santo [address] [place] [address] [address] [facility] [address] Health Maintenance Due Date Last Done Comments [...] as of this encounter Visit Diagnoses Diagnosis Gestational diabetes mellitus (GDM) in third trimester- Primary documented in this encounter Care Teams Rim Buster Relationship Specialty Start Date End Date Nadine Mata MD [address] [place] [address] PCP - General Family Medicine 06/14/19 documented as of this encounter
--- OUTSIDE RECORDS SUMMARY | 2023-12-21 23:47 | External Medical Summary | Summary of Care ---
Author Name Unknown Organization [facility] Address [address] [facility] [place] [address] Phone [phone] Care Team Providers Care Technology Integration Specialist Name Role Phone Nadine Mata MD Primary Care Provider Reason for Visit * Reason Comments Healthy Beginnings Return Encounter Details Date Type Department Care Team (Late st Contact Info) Description 10/30/2023 7:30 AM EDT Office Visit Gynecology/Obstetri julianne Mchugh [address] [facility] [place] [address] Laura Goldman PA-C [address] [place] [address] Nurse Jeison [facility] Return Di [address] [place] [address] Encounter for supervision of normal first in first trimester*; Diet controlled gestational diabetes mellitus (GDM) in third trimester Allergies No known active allergiesdocumented as of this encounter (statuses as of 10/30/2023) Medications Medication Sig Dispensed Refills Start Date End Date Status Chapin Owens [place]-3 DHA Oral Tablet Chewable Take 1 Tablet [...] and dinner) 100 Strip 6 10/17/2023 Active iValidate.meTouch Delica Lancets 30GIndications:Gestati onal diabetes mellitus (GDM) in third trimester, gestational diabetes method of control unspecified Use to test blood sugars 4 times daily (fasting, 1 hour after breakfast, lunch, and dinner) 100 Each 6 10/17/2023 Active Senna 8.6 MG Oral Capsule Take by mouth. Active documented as of this encounter (statuses as of 10/30/2023) Active Problems Problem Noted Date Diagnosed Date Gestational diabetes mellitus (GDM) in third [facility] 10/17/2023 Overview: Diagnosed at 31 weeks [...] Recommend nutrition consult with RDN (Registered Dietitian Classroom Assistant). Lifestyle changes are also indicated including optimizing [...] as of this encounter (statuses as of 10/30/2023) Resolved Problems Problem Noted Date Diagnosed Date Resolved Date Viral warts 01/13/2009 03/25/2015 Overview: Tazorac .1% gel at bedtime ICD-10 update of inactive term Adolescent Acne 11/02/2005 03/25/2015 documented as of this encounter (statuses as of 10/30/2023) Immunizations Name Administration Dates Next Due HIB [...] money to get more. Never true 08/03/2023 [place] Depression Scale Answer Date Recorded [place] Depression Scale Total 1 09/28/2023 The thought [...] No 08/03/2023 Does the household have a [facility] source [facility] income? (Household - for ages [...] Sign Reading Time Taken Comments Blood Pressure 108/68 10/30/2023 7:35 AM EDT Pulse - - Temperature - - Respiratory Rate - - Oxygen Saturation - - Inhaled Oxygen Concentration - - Weight 89.5 kg (197 lb 6.4 oz) 10/30/2023 7:35 A M EDT Height - - Body Mass Index 30.92 09/28/2023 8:44 AM EDT documented in this encounter Progress Notes * Laura Goldman PA-C - 10/30/2023 7:40 AM EDT 33w1d Diagnosed with GDM, met with ADAPT team has growth u/s tomorrow. Pt states missed a few reading d/tnot realizing if she doesn't log BG right away it disappears. Otherwise doing well. Denies LOF, VB, contractions. Pos FM. Spouse FMLA paperwork given to her today. RTC in 2 weeks Laura Goldman PA-C * Janki Pressley MED ASSIST - 10/30/2023 7:35 AM EDT 33w1d Denies vaginal bleeding/rom + movements No new concerns documented in this encounter Plan of Treatment Upcoming Encounters Date Type Department Care Team (Late st Contact Info) Description 10/31/2023 7:30 AM EDT Office Visit Child Care Associate OB Maternal Medicine [facility] Gabby Santo [address] [place] [address] Dr [address] [facility] [address] Da Loco MD [address] [place] [address] 10/31/2023 7:30 AM EDT Imaging Maternal Medicine [facility] Gabby Santo [address] [place] [address] [address] [place] [address] 11/13/2023 8:45 AM EDT Office Visit Gynecology/Obstetrics Berna Mchugh [address] [facility] [place] [address] Laura Goldman PA-C [address] [place] [address] Nurse Jeison [facility] Return Di [address] [place] [address] Health Maintenance Due Date Last Done Comments [...] trimester documented in this encounter Care Teams Technology Integration Specialist Relationship Specialty Start Date End Date Nadine Mata MD [address] [place] [address] [place] [address] PCP - General Family Medicine 06/14/19 documented as of this encounter
--- OUTSIDE RECORDS SUMMARY | 2023-12-21 23:47 | External Medical Summary | Summary of Care ---
Author Name Unknown Organization [facility] Address [address] [place] [address] Phone [phone] Care Team Providers Care Finishing Manager Name Role Phone Nadine Mata MD Primary Care Provider [phone] Reason for Visit * Reason Onset Date Comments Referral 10/17/2023 Encounter Details Date Type Department Care Team (Late st Contact Info) Description 10/17/2023 Telephone Coupling Machine Operator Obstetrics Maternal Medicine, [place] [address] [place], [place] [id number] [place], Nurse Coupling Machine Operator [facility] [address] [place], [place] [phone] Referral Allergies No known active allergiesdocumented as of this encounter (statuses as of 10/17/2023) Medications Medication Sig Dispensed Refills Start Date End Date Status Chapin Owens [place]-3 DHA Oral Tablet Chewable Take 1 Tablet by mouth in the morning. Active Iron-Vitamin C 65-125 MG Oral Tablet (Vitron C)Indications:Antepart um anemia complicating Take 1 Tablet by mouth in the morning. 30 Tablet 5 09/29/2023 Active Docusate Sodium 100 MG Oral Capsule (Colace)Indications:An tepartum anemia complicating Take 1 tablet by mouth twice daily as needed for constipation. 60 Capsule 5 09/29/2023 Active App55 LtdTouch FlatStackio Flex System w/Device KitIndications:Gestati onal diabetes mellitus [...] Gestational diabetes mellitus (GDM) in third tri [facility] 10/17/2023 Antepartum anemia complicating 024 Overview: Iron [...] money to get more. Never true 08/03/2023 [place] Depression Scale Answer Date Recorded [place] Depression Scale Total 1 09/28/2023 The thought [...] encounter Miscellaneous Notes * Telephone Encounter - Bety Doll OSA - 10/17/2023 3:23 PM EDT Spoke with Jo Ann. Appointment scheduled. Patient aware of date, time and location of Maternal Medicine appointment. * Telephone Encounter - Hayde Velásquez CCMA - 10/17/2023 3:13 PM EDT Estimated Date of Delivery: 12/17/23 Please schedule for 45 MINUTE ADAPT WITH HYDRAULIC MINER, in time frame of within 1 week at location [facility] with the indication of GDM. Please schedule anatomy within 1-3 weeks Referring Provider: Blanca Johnson PA-C documented in this encounter Plan of Treatment Upcoming Encounters Date Type Department Care Team (Late st Contact Info) Description 10/23/2023 9:45 AM EDT Telemedicine Coupling Machine Operator Obstetrics Maternal Medicine, [place] [address] [facility] [address] [place] [address] Blanca Hernandez CRNP [address] [place] [address] 10/30/2023 7:30 AM EDT Office Visit Gynecology/Obstetrics Berna Mchugh [address] [facility] [place] [address] Laura Goldman PA-C [address] [place] [address] Nurse Jeison [facility] [address] [place] [address] 10/31/2023 7:30 AM EDT Office Visit Coupling Machine Operator OB Maternal Medicine [facility] Gabby Santo [address] [place] [address] [address] [place] [address] Da Loco MD [address] [place] [address] 10/31/2023 7:30 AM EDT Imaging Maternal Medicine [facility] Gabby Santo [address] [place] [address] [address] [place] [address] Health Maintenance Due Date Last Done Comments [...] filedocumented as of this encounter Care Teams Finishing Manager Relationship Specialty Start Date End Date Nadine Mata MD [address] [place] [id number] PCP - General Family Medicine 06/14/19 documented as of this encounter
--- OUTSIDE RECORDS SUMMARY | 2023-12-21 23:47 | External Medical Summary | Summary of Care ---
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 [facility] Program Type Chronic Disease Management Chronic Disease Management Diabetes in Alarm Settings Standard per protocol Comments OneTouch Verio meter Reason for Visit * Reason Comments Consultation High-risk * Evaluate & Treat - Unlimited Visits (Within 10 days (routine)) - Authorized Specialty Diagnoses / Procedures Referred By Cale reyes Referred To Contact Obstetrics/Gynecology / Maternal Medicine Diagnoses Gestational diabetes mellitus (GDM) in third trimester, gestational diabetes method of control unspecified Blanca Johnson PA-C [address] [facility] [place] [address] Referral ID Status Reason Start Date Expiration Date Visits Requested Visits Authorized [id number] Authorized Specialty Services Required 10/17/[phone] Encounter Details Date Type Department Care Team (Late st Contact Info) Description 10/23/2023 9:45 AM EDT Telemedicine Eligibility And Occupancy Interviewer Obstetrics Maternal Medicine, [place] [address] [facility] [address] [place] [address] Blanca Hernandez CRNP [address] [place] [address] Supervision of high risk in third trimester*; 32 weeks gestation of ; Diet controlled gestational diabetes mellitus (GDM) in third trimester Allergies No known active allergiesdocumented as of this encounter (statuses as of 10/23/2023) Medications Medication Sig Dispensed Refills Start Date End Date Status Chapin Owens [place]-3 DHA Oral Tablet Chewable Take 1 Tablet [...] as of this encounter (statuses as of 10/23/2023) Active Problems Problem Noted Date Diagnosed Date Gestational diabetes mellitus (GDM) in [facility] 10/17/2023 Overview: Diagnosed at 31 weeks Nutrition [...] Recommend nutrition consult with RDN (Registered Dietitian Retail Branch Manager). Lifestyle changes are also indicated including optimizing [...] as of this encounter (statuses as of 10/23/2023) Resolved Problems Problem Noted Date Diagnosed Date Resolved Date Viral warts 01/13/2009 03/25/2015 Overview: [place] .1% gel at bedtime ICD-10 update of inactive term Adolescent Acne 11/02/2005 03/25/2015 documented as of this encounter (statuses as of 10/23/2023) Immunizations Name Administration Dates Next Due HIB [...] money to get more. Never true 08/03/2023 [place] Depression Scale Answer Date Recorded [place] Depression Scale Total 1 09/28/2023 The thought [...] as of this encounter Progress Notes * Blanca Hernandez CRNP - 10/23/2023 10:41 AM EDT MATERNAL MEDICINE CONSULT Jo Ann Johnson 10/23/23 REFERRING PROVIDER: Blanca Johnson PA-C Patient location: HOME. I was in a hospital or clinic location. After connecting through [employer],patient was verified with two unique identifiers. Patient (or authorized legal service representative) was then informed that this was a Telemedicine visit and being conducted confidentially over secure lines. Methods to assure confidentiality were taken. Patient acknowledged consent and understanding of pr ivacy and security of the Telemedicine visit. The patient agreed to participate. Jo Ann Johnson is a 33 year old with intrauterine at 32w1d (Estimated Date of Delivery: 12/17/23 by exact LMP) who presents today for an MFM consult due to gestational diabetes. HPI/CURRENT : pre- BMI= 25.05 (72.6 kg (160 lb); 5' 7"); FOB #1; complicated by above. Genetic testing: Low Risk Cell Free DNA [id number] Problems (from 05/12/23 to present) Problem Noted Resolved Gestational diabetes mellitus (GDM) in third trimester Overview Addendum 10/23/2023 10:39 AM by Blanca Hernandez CRNP Diagnosed at 31 weeks Nutrition referral ordered [...] 10/23/23: MFM ADAPT consult complete. Enrolled in [facility]. Instructions provided to report blood sugars each week for MFM review I have reviewed this patient's previous OB ultrasound reports, pertinent labwork and testing provided by her referring OB provider. Current Outpatient Medications Medication Sig Dispense Refill Docusate Sodium 100 MG Oral Capsule (Colace) Take 1 tablet by mouth twice daily as needed for constipation. 60 Capsule 5 Flinstones Gummies [place]-3 DHA Oral Tablet Chewable Take 1 Tablet by mouth in the morning. Iron-Vitamin C 65-125 MG Oral Tablet (Vitron C) Take 1 Tablet by mouth in the morning. 30 Tablet 5 OneTouch Delica Lancets 30G Use to test blood sugars 4 times daily (fasting, 1 hour after breakfast, lunch, and dinner) 100 Each 6 OneTouch Verio Flex System w/Device Kit Use to test blood sugars 4 times daily (fasting, 1 hour after breakfast, lunch, and dinner) 1 Kit 0 OneTouch Verio In Vitro Strip (Glucose Blood) Use to test blood sugars 4 times daily (fasting, 1 hour after breakfast, lunch, and dinner) 100 Strip 6 Senna 8.6 MG Oral Capsule Take by mouth. No current facility-administered medications for this visit. Review of patient's allergies indicates: No Known Allergies OB History Para Term AB Living 1 0 0 0 0 0 SAB IAB Ectopic Multiple Live Births 0 0 0 0 0 # Outcome Date GA Lbr Odilon/2nd Weight Sex Type Anes PTL Lv 1 Current Obstetric Comments 2023 FOB#1 Joni 26YO, history of hypothyroidism, no child outside relationship Past Medical History: Diagnosis Date Anxiety hx GDM (gestational diabetes mellitus) 2023 Past Surgical History: Procedure Laterality Date DENTAL SURGERY PROCEDURE NEC wisdom teeth Family History Problem Relation Name Age of Onset Diabetes Mother prediabetes. hx GDM. Allergies Father PCN No Known Problems Sister No Known Problems Sister No Known Problems Brother Heart Disorder Grandfather (Paternal) Hypertension Grandfather (Paternal) Ulcerative colitis Grandfather (Paternal) Other (skin disorders) Grandfather (Paternal) denies skin disorders Ulcerative colitis Other Cousin (paternal) Social History Tobacco Use Smoking status: Never Smokeless tobacco: Never Vaping Use Vaping status: Never Used Substance Use Topics Alcohol use: No Comment: denies in Drug use: No REVIEW OF SYSTEMS: headaches: no nausea/vomiting: denies reports movement: yes abdominal pain/tenderness/cramping/contractions: no vaginal bleeding: no vaginal leaking of fluid: no all other systems negative PHYSICAL EXAM: LMP 03/12/2023 (Exact Date) General: Well appearing and in no acute distress Psych: Alert to time, place, and person and Pleasant DISCUSSION/RECOMMENDATIONS: Problem List Items Addressed This Visit [id number] Supervision of high risk in third trimester Gestational diabetes mellitus (GDM) in third trimester CONSIDERATIONS: Reviewed etiology and risks associated with gestational diabetes mellitus (GDM), including risks topregnancy, fetus, and maternal progression to Type 2 [...] Recommend nutrition consult with RDN (Registered Dietitian Retail Branch Manager). Lifestyle changes are also indicated including optimizing gestational weight gain and physical activity of 30 minutes per day, if not otherwise contraindicated in . Insulin is preferred if medications are indicated to optimize euglycemia. Metformin (preferred overglyburide) may also be used in some circumstances. [...] with 75-gram glucose load 6-8 weeks . Relevant Orders REMOTE PATIENT MONITORING REFERRAL Follow up ultrasound with Maternal Medicine is scheduled on 10/31/[address] Loco for anatomy scan secondary to gestational diabetes. Patient is aware of upcoming MFM appointment. CARISSA Faustin 10/23/2023 10:42 AM documented in this encounter Miscellaneous Notes * Pt Handout (on AVS) - Blanca Hernandez CRNP - 10/23/2023 10:40 AM EDT Images from the original note were not included. [address] Gestational Diabetes: Exercise Exercise can help you keep your blood sugar in a normal range. That?s because your body uses more blood sugar when you exercise. Diabetes in can often be managed with careful nutrition and exercise alone. Then you may not need medicine to control your blood sugar. Exercise regularly Your healthcare provider may want you to exercise each day. The best time depends on when your blood sugar is highest. Exercising may also help ease some common symptoms of . These include bloating, constipation, and backaches. Ask about exercise at your first care visit. Your provider will work with you to make an exercise plan that fits your needs. Here are some tips: Aim to exercise for 30 to 60 minutes a day. Do this at moderate intensity. This means you're moving enough to raise your heart rate and start sweating. But you can still talk normally. Try breaking up daily exercise into 2 or 3 sessions. For example, take a 15- minute walk after each meal. Exercise with a friend or your partner. This may help you stick to your exercise plan. Go at a comfortable pace. Don?t tire yourself out. Exercise safely Ask your provider about exercise safety for you and your baby. Walking, swimming, and low-impact orwater aerobics are often the safest things to do. Other safety tips include: Don't do activities where you jump, turn, twist, stop or start quickly. Don't lift heavy weights. Don't exercise on your back after the first trimester. This can put too much pressure on an important vein. It can limit blood flow to the baby. If you do yoga or Pilates, find a class designed for . Use a sports bra to support your breasts. You may also want to use a belly support belt later inpregnancy. Don't get overheated. Don't do hot yoga or hot Pilates. Don't raise your heart rate to a level that makes it hard to talk. Drink plenty of water. If you use insulin, carry a carbohydrate snack with you. If you walk or do low-impact aerobics, wear sturdy shoes. If you haven?t eaten in 2 or more hours, have a light snack before exercising. Don't do contact sports that put you at risk of being hit in the belly. These include boxing, ice hockey, soccer, and basketball. Don't go skydiving or scuba diving. Don't do things that may cause a serious fall. These include horseback riding, gymnastics, and off-road cycling. Use a stationary bike. It's a safer choice than a standard bike. It will stop you from getting off balance with your growing belly. When it's not safe to exercise It's not advised to exercise when if you have any of these health conditions: Some types of heart and lung diseases with twins or more, and at risk for labor labor of your water has broken (ruptured membranes) Placenta previa later than 26 weeks of Preeclampsia or high blood pressure due to Severe anemia Cervical insufficiency or cerclage When to call your healthcare provider Call your provider right away or go to the emergency room (ER) if you have any of these: Belly pain Shortness of breath before starting exercise Vaginal bleeding Dizziness or feeling faint Chest pain Headache Decreased movement contractions Muscle weakness Calf pain or swelling Fluid leaking from the vagina Last Reviewed Date: 05/25/202119996855-8975 [employer] acquired by [employer]. All rights reserved. This information is not intended as a substitute for professional medical care. Always follow your healthcare professional's instructions. * Pt Handout (on AVS) - Blanca Hernandez CRNP - 10/23/2023 10:40 AM EDT Images from the original note were not included. [address] Healthy Meals for Diabetes Figuring out what to eat can be one of the most confusing parts of diabetes. It will help you to have a meal plan. You can ask your healthcare team to help you make a meal plan that fits your needs. Your meal plan tells you when to eat your meals and snacks, what kinds of foods to eat, and how muchof each food to eat. You don?t have to give up all the foods you like but following some guidelines will set you up for success in managing your diabetes. A healthcare provider will help you develop a meal plan that fits your needs. Choose healthy carbohydrates Starches, sugars, and fiber are all types of carbohydrates (carbs). Carbs can get a bad reputation since they affect your blood sugar the most. It is important to remember that your body benefits from the right amount of healthy carbs. Fiber can help lower your cholesterol and triglycerides. Fiber is also healthy for your heart. You should have 20 to 35 grams of total fiber each day. Fiber comes from plants. Fiber-rich foods include: Whole-grain breads and cereals Nuts Brown rice and quinoa Whole-wheat pasta Fruits and vegetables Beans and peas Keep track of the amount of carbs you eat. This can help you keep the right balance of physical activity and medicine. The amount of carbs needed will vary for each person. It depends on many things such as your health, the medicines you take, and how active you are. Your healthcare team will help you figure out the right amount of carbs for you. You may start with around 45 to 60 grams of carbs per meal, depending on your needs. Here are some examples of foods that have about 15 grams of carbs (1 serving of carbs): 1/2 cup of canned or frozen fruit A small piece of fresh fruit (4 ounces) 1 slice of bread 1/2 cup of oatmeal 1/3 cup of rice 4 to 6 crackers 1/2 [place] muffin 1/2 cup of black beans 1/4 of a large baked potato (3 ounces) 2/3 cup of plain fat-free yogurt 1 cup of soup 1/2 cup of casserole 6 chicken nuggets 6-vccn-woynzs brownie or cake without frosting 2 small cookies 1/2 cup of ice cream or sherbet Choose healthy protein foods Proteins play a cross role in building healthy muscles, bones, skin, and many other parts of your body. Eating protein that's low in fat can help you control your weight. It also helps keep your heart healthy. Low-fat protein foods include: Fish Plant proteins, such as lentils, beans, peas, nuts, and soy products like tofu and soymilk Lean meat with all visible fat removed Poultry with the skin removed Low-fat or nonfat milk, cheese, and yogurt Limit unhealthy fats and sugar Saturated and trans fats are unhealthy for your heart. They raise LDL (bad) cholesterol. Fat is also high in calories. To cut down on unhealthy fats and sugar, limit these foods: Butter or margarine Palm and palm kernel oils and coconut oil Cream Cheese [place] Lunch meats Ice cream Sweet bakery goods such as pies, muffins, and donuts Jams and jellies Candy bars Regular sodas How much to eat The amount of food you eat affects your blood sugar. It also affects your weight. Your healthcare team will tell you how much of each type of food you should eat. Use measuring cups and spoons and a food scale to measure serving sizes. Learn what a correct serving size looks like on your plate. This will help [facility] and [facility]?t measure your servings. For instance, a serving of meat is about the size of the palmof your hand. Eat only the number of servings given on your meal plan for each food. Don?t take seconds. Learn to read food labels. Be sure to look at serving size, total carbohydrates, fiber, calories, sugar, salt, and saturated and trans fats. Look for healthier options such as foods with no added sugar or salt. Plan ahead for parties. Then you can still have a good time without diving into unhealthy food choices. Bring a healthy dish to [employer]. Choose healthy snacks When it comes to snacks, we often think about foods with added sugar and fats. But there are many other options for healthier snack choices. Here are a few snack ideas to choose from: Snacks with less than 5 grams of carbohydrates 1 piece of string cheese 3 celery sticks plus 1 tablespoon of peanut butter 5 gregg tomatoes plus 1 tablespoon of ranch dressing 1 hard-boiled egg 1/4 cup of fresh blueberries 5 baby carrots 1 cup of light popcorn 1/2 cup of sugar-free gelatin 15 almonds Snacks with about 10 to 20 grams of carbohydrates 1/3 cup of hummus plus 1 cup of fresh cut non-starchy vegetables (carrots, green peppers, broccoli, celery, or a mix) 1/2 cup of fresh or canned fruit plus 1/4 cup of cottage cheese 1/2 cup of tuna salad with 4 crackers 2 rice cakes and a tablespoon of peanut butter 1 small apple or orange 3 cups light popcorn 1/2 of a turkey sandwich (1 slice of whole-wheat bread, 2 ounces of turkey, and mustard) Portion sizes are important for controlling your blood sugar and staying at a healthy weight. Stockup on healthy snack foods so you always have them on hand. When to eat Your meal plan will likely include breakfast, lunch, dinner, and some snacks. Try to eat your meals and snacks at about the same times each day. Eat all your meals and snacks. Skipping a meal or snack can make your blood sugar drop too low. It can also cause you to eat too much at the next meal or snack. Then your blood sugar could get toohigh. Be patient It can be stressful trying to figure out what to eat. But over time, you?ll form new habits around your meal plan and healthy guidelines. Then eating right for your blood sugar will be much easier. Last Reviewed Date: 07/24/202319991994-2190 [employer]. All rights reserved. This information is not intended as a substitute for professional medical care. Always follow your healthcare professional's instructions. * Pt Handout (on AVS) - Blanca Hernandez CRNP - 10/23/2023 10:40 AM EDT Images from the original note were not included. 10598 If You Need Extra Insulin During During , your body may not be able to make enough insulin to control your blood sugar. If this happens, you may need extra insulin. This will help control your blood sugar. In some cases, anoral antidiabetic medicine may be used. An example of this is glyburide. But insulin is used most often. Insulin is a natural substance. It is not addictive. It does not harm your baby. It does not cross the placenta. That means it does not affect your baby the way taking a pill would. If you did not have diabetes before , you will likely stop taking insulin after your baby is born. Learning to use insulin Your healthcare provider will prescribe your insulin. They will teach you how to give yourself a shot. With practice, you?ll get comfortable doing it. You will need to inject it 1 or more times a day. Insulin is injected into fatty tissue. The best site for a shot of insulin is in your belly area. But you can also do the shot in your upper arm or thigh. Talk with your healthcare provider about where to give the shot. Here are some steps to follow: Choose an injection site. Clean it with alcohol if the skin is dirty. Pinch a fold of skin. Insert the needle at a steep angle. The best angle will depend on your body type, the length of the needle, and where you put the shot. Your healthcare provider will help youfind the best angle. Keeping the skin pinched, push the plunger down. This injects the insulin. Release the pinched skin. Remove the needle from your skin. If you see blood or insulin leaking from your skin, press firmly on the site for 5 to 8 seconds. Don?t rub your skin in the area. [place] and syringes should be used only 1 time. After using, throw them away in a puncture-proof container. This is known as a sharps container. Don?t throw needles in your household trash. Talk to your healthcare provider if you have any questions or concerns about taking insulin. The best site for injecting insulin is your abdomen. But you can also inject into an upper arm or thigh. Talk with your health care provider about where to give yourself a shot. Finding the right dose for you Your healthcare provider will work with you to find the right dose of insulin for you. It may take time. This is because you need to balance your insulin with your food and exercise. And your body needs more insulin as your baby grows. You must check your blood sugar several times a day. This is to be sure your insulin is working. Ifyour blood sugar is too high or too low, your healthcare provider will adjust your dose. Low blood sugar Taking insulin puts you at risk of low blood sugar. Symptoms of low blood sugar include: Shakiness Dizziness Weakness Confusion If you feel any of these symptoms, check your blood sugar right away. Always treat low blood sugar quickly. To do this, eat 15 grams of fast-acting sugar, such as: 3 glucose tablets 5 to 6 pieces of hard candy 1 to 2 tablespoons of honey or sugar cup fruit juice or regular, nondiet soda 1 cup fat-free milk Then check your blood sugar again in 15 minutes. If your blood sugar is still low, eat another 15 grams of sugar. If your blood sugar does not return to the target range in 30 minutes, call your healthcare provider. Last Reviewed Date: 03/24/202219999976-6772 [employer]. All rights reserved. This information is not intended as a substitute for professional medical care. Always follow your healthcare professional's instructions. * Pt Handout (on AVS) - Blanca Hernandez CRNP - 10/23/2023 10:40 AM EDT Images from the original note were not included. [address]170 What Is Gestational Diabetes? Gestational diabetes is a type of diabetes that happens during . Unlike type 1 diabetes, gestational diabetes is not caused by having too little insulin. Instead, hormones made by your placenta keep your body from using insulin as it should. This is called insulin resistance. Blood sugar (glucose) then builds up in your blood instead of being absorbed by the cells in your body and used for energy. This can cause high blood sugar and can cause problems for both you and your baby. You can take steps to control your blood sugar. This will help reduce the risks for you and your baby. Managing gestational diabetes You need to control your blood sugar while you are . Your healthcare team will help you make a plan to do this. This plan will include: Eating the right foods. This is the main way to control your blood sugar. You need to eat a variety of healthy foods each day. To help you plan changes in your diet, you will likely work with a registered dietitian (DIONE). This is an expert on food and nutrition. The dietitian may have you take part in a nutrition program to help you reach your goals. Getting exercise. Your body uses more blood sugar when you exercise. Your healthcare team can help you pick the best kinds of exercise for you. Checking your blood sugar. You will likely need to check your blood sugar at home. You will do this 2 or more times a day. You will likely check your fasting blood sugar and after meal (postprandial) blood sugar. Your healthcare team will teach you how. They will talk with you about your blood sugar goals. Your blood sugar may also be tested every week or so at a clinic. If your blood sugar stays too high, you may need to have insulin shots during your . Risks to your baby If your blood sugar stays high, your baby is at risk for these problems: Your baby may grow too large. If your blood sugar stays too high, your baby may grow too large. This is called macrosomia. This means a baby is too big for a safe vaginal . A large baby may get their shoulder stuck behind the pubic bone during . This is called shoulder dystocia. The baby's arms and shoulders could be injured. This may cause permanent arm damage. The baby may also have low oxygen levels (hypoxia) while they are stuck. Hypoxia can lead to cerebral palsy. In rare cases, it can lead to . Your baby?s organs may not be fully grown at . If you have diabetes, your baby may need to be delivered early. This may be because of problems with the . Or it may be because of risks to you or your baby. If your baby is delivered early, their lungs may not work well. This is called respiratory distress syndrome. Your baby's liver also may not work normally. And your baby may have yellow color in their skin and eyes (jaundice) after . Your baby?s blood sugar may be low after . If your blood sugar is too high, your baby makesextra insulin. The baby will keep making extra insulin right after . Your baby may need to be treated for low blood sugar. Your baby could be stillborn. This is very rare. But your baby could before if your blood sugar stays high for too long. Risks to you If you don?t control your blood sugar, you are more likely to have: High blood pressure. High blood sugar makes you more likely to have high blood pressure during your . This is a danger to your health. It could lead to early delivery for your baby. Infections. High blood sugar makes you more likely to have bladder, kidney, and vaginal infections. Trouble breathing. You may feel short of breath. High blood sugar can cause too much fluid around the baby. This is called polyhydramnios. Your abdomen gets big and pushes up on your lungs. Difficult labor. Your delivery may be harder. And your recovery may take longer. If your blood sugar stays too high, your baby may grow too large. A large baby might cause injury to you during . Or the baby may have to be delivered by section (). This means making a cut (incision) in your abdomen and uterus. A is a common risk of gestational diabetes. Reduce your future risk for type 2 diabetes Women who have gestational diabetes are at higher risk of type 2 diabetes later. You are also at higher risk for gestational diabetes in your next . You can help reduce your risk in these ways: Lose excess weight. Be as active as you can. Eat more fruits and vegetables. Eat fewer processed foods. Get regular blood tests to check for diabetes. Breastfeed your baby. Who is at risk for gestational diabetes? You're more at risk if you: Are overweight Have a family history of diabetes Have had a baby who before Had gestational diabetes in the past Are , , , South or [place] , or How daily issues affect your health Many things in your daily life impact your health. This can include transportation, money problems,housing, access to food, and childcare. If you can?t get to medical appointments, you may not receive the care you need. When money is tight, it may be difficult to pay for medicines. And living far from a grocery store can make it hard to buy healthy food. If you have concerns in any of these or other areas, talk with your healthcare team. They may know of local resources to assist you. Or they may have a staff person who can help. Last Reviewed Date: 11/22/202219996392-3393 [employer] acquired by [employer]. All rights reserved. This information is not intended as a substitute for professional medical care. Always follow your healthcare professional's instructions. * Pt Handout (on AVS) - Blanca Hernandez CRNP - 10/23/2023 10:40 AM EDT Images from the original note were not included. 42442 Understanding Carbohydrates Just like a car needs the right type of fuel to run, you need the right kind of food to function. To keep your energy level up, your body needs food that has carbohydrates (carbs). But carbs raise blood sugar levels higher and faster than other kinds of food. Your dietitian will work with you to figure out the amount of carbs you need. Carbs come in 3 types: starches, sugars, and fiber. Starches Starches are found in grains, some vegetables, and beans. Grain products include bread, pasta, cereal, and tortillas. Starchy vegetables include potatoes, peas, corn, miramontes beans, yams, and squash. Kidney beans, connelly beans, black beans, garbanzo beans, and lentils also have starches. Sugars Sugars are found naturally in many foods. Or they can be added. Foods that contain natural sugar include fruits and fruit juices, dairy products, honey, and molasses. Added sugars are found in most desserts, processed foods, candy, regular soda, and fruit drinks. These are very helpful to treat lowblood sugar (hypoglycemia). They give you sugar quickly. Try to keep at least 15 to 20 grams of these simple sugars with you at all times. Eat or drink these if you start to have symptoms of low blood sugar. Fiber Fiber comes from plant foods. Your body can't digest most fiber. Instead of raising blood sugar levels like other carbs, fiber stops blood sugar from rising too quickly. Fiber is found in fruits, vegetables, whole grains, beans, peas, and many nuts. Understanding how to count your carbs Keep track of the amount of carbs you eat. This can help you keep the right balance of carbs, physical activity, and medicine. The amount of carbs you need will be different from what other people need. How much you need depends on many things. These include your health, the medicines you take, andhow active you are. Your healthcare team will help you figure out the right amount of carbs for you. You may start with 45 to 60 grams of carbs per meal, depending on your case. Carb counting is a system that helps you keep track of the carbohydrates you eat at each meal. Carbs come from many foods. These include grains, starchy vegetables, fruit, milk, beans, and snackfoods. You can either count carbohydrate grams or carbohydrate servings. When you count carbohydrate servings, 1 carbohydrate serving = 15 grams of carbohydrates. Here are some examples of foods that have about 15 grams of carbs (1 serving of carbohydrates): 1/2 cup of canned or frozen fruit A small piece of fresh fruit (4 ounces) 1 slice of bread 1/2 cup of oatmeal 1/3 cup of rice 4 to 6 crackers 1/2 Senegalese muffin 1/2 cup of black beans 1/4 of a large baked potato (3 ounces) 2/3 cup of plain fat-free yogurt 1 cup of soup 1/2 cup of casserole 6 chicken nuggets 2-ozmg-lgfciw brownie or cake without frosting 2 small cookies 1/2 cup of ice cream or sherbet Carb counting is easier when food labels are available. Look at the label to see how many grams of total carbs per serving the food contains. Then you can figure out how much you should eat. If your food doesn't have a nutrition label, you should be able to get an idea of how many carbs there are per serving by using a book or website. Two very important lines to look at on the label are the serving size and the total carbohydrate amount per serving. Here are some tips for using food labels to count your carbs: Check the serving size. The information on the label is based on that serving size. If you eat more than the listed serving size, you may have to double or triple the other information on the label. Check the total grams of carbs. Total carbohydrate from the label includes sugar, starch, and fiber. Be sure to use the total carbohydrate number (minus the fiber) and not sugar alone. Know how many grams of carbs you can have. Be familiar with the matching portion sizes. Compare labels. Compare the labels of different products. Look at serving sizes and total carbs to find the products that work best for you. Don't forget protein and fat. With the focus on carb counting, it might be easy to forget protein and fat in your meals. Don't forget to include sources of protein and healthy fat to balance your meals. Also watch how much salt (sodium) you eat. This is especially true if you have high blood pressure. If you have diabetes, limit the amount of sodium to less than 2,300 mg a day. It?s also important to be consistent with the amount of carbs and time you eat when taking a fixed dose of diabetes medicine. Work with your healthcare provider or dietitian if you need more help. They can help you keep track of your carbs. They can also help you figure out how many grams of carbs you should have. Last Reviewed Date: 06/23/202319997767-4028 [employer]. All rights reserved. This information is not intended as a substitute for professional medical care. Always follow your healthcare professional's instructions. * Pt Handout (on AVS) - Blanca Hernandez CRNP - 10/23/2023 10:40 AM EDT Images from the original note were not included. [address]006 Gestational Diabetes: After Your blood sugar will most likely return to normal after delivery. But gestational diabetes is a warning sign that you are at risk of getting diabetes later in life. You?re also more likely to have gestational diabetes with your next . But you can take steps to reduce these risks. Taking care of yourself Even if your blood sugar goes back to normal, you still need to take care of yourself. This will help prevent diabetes later in life. You'll need to: Keep your weight down. Eating food that is low in fat and sugar can help you control your weight. If you?re overweight, your risk of getting diabetes in 10 to 15 years more than doubles. Keeping your weight down also reduces your risk of gestational diabetes in your next . Get regular exercise. Exercise helps lower your blood sugar. It can also help you control your weight. Try to work up to at least 150 to 300 minutes of moderate exercise every week. This is at least 30 minutes each day. Have your blood sugar checked. Make an appointment to have your blood sugar checked 6 to 8 weeksafter delivery. If your blood sugar is still high, you may have type 2 diabetes. Your healthcare provider will tell you more about how to manage diabetes long-term. Have regular diabetes screenings. Have blood tests every year, or as often as your healthcare provider advises. Breastmilk is the best food for your baby. Giving only breastmilk is advised for at least your baby's first 6 months. may also help lower your blood sugar. Your healthcare provider can show you how to breastfeed. Be sure to eat healthy foods and drink extra water while you?re . You may find exercise easier right after . This is when your breasts may feel post hole digger. Planning a future Your blood sugar needs to be back to normal before you get again. Have your blood sugar checked before you plan your next . And remember that it?s possible to get again soon after you give . Talk with your healthcare provider about the best method of control for you and your partner. Last Reviewed Date: 05/25/202119998978-1559 [employer]. All rights reserved. This information is not intended as a substitute for professional medical care. Always follow your healthcare professional's instructions. * Assessment & Plan Note - Blanca Hernandez CRNP - 10/19/2023 2:56 PM EDTAssociated Problem(s): Gestational diabetes mellitus (GDM) in third trimester CONSIDERATIONS: Reviewed etiology and risks associated with gestational diabetes mellitus (GDM), including risks topregnancy, fetus, and maternal progression to Type 2 [...] Recommend nutrition consult with RDN (Registered Dietitian Retail Branch Manager). Lifestyle changes are also indicated including optimizing gestational weight gain and physical activity of 30 minutes per day, if not otherwise contraindicated in . Insulin is preferred if medications are indicated to optimize euglycemia. Metformin (preferred overglyburide) may also be used in some circumstances. [...] with 75-gram glucose load 6-8 weeks . documented in this encounter Plan of Treatment Upcoming Encounters Date Type Department Care Team (Late st Contact Info) Description 10/30/2023 7:30 AM EDT Office Visit Gynecology/Obstetrics Berna Mchugh [address] [place] [address] Laura Goldman PA-C [address] [place] [address] Nurse Jeison [facility] Return Di [address] [place] [address] 10/31/2023 7:30 AM EDT Office Visit Eligibility And Occupancy Interviewer [facility] Gabby Santo [address] [place] [address] [address] [place] [id number] [facility] [address] [facility] [address] 10/31/2023 7:30 AM EDT [facility] Gabby Santo [address] [place] [address] [address] [place] [address] Scheduled Referrals Name Type Priority Associated Diagnoses Orde r Schedule REMOTE PATIENT MONITORING REFERRAL Referral Within 3 days (urgent) Supervision of high risk in third trimester Diet controlled gestational diabetes mellitus (GDM) in third trimester Ordered: 10/23/2023 Health Maintenance Due Date Last Done Comments [...] as of this encounter Visit Diagnoses Diagnosis Supervision of high risk in third trimester- Primary Unspecified high-risk 32 weeks gestation of state, incidental Diet controlled gestational diabetes mellitus (GDM) in third trimester documented in this encounter Care Teams Clarifier Operator Helper Relationship Specialty Start Date End Date Nadine Mata MD [address] [place], [place] [address] [address] PCP - General Family Medicine 06/14/19 documented as of this encounter
--- OUTSIDE RECORDS SUMMARY | 2023-12-21 23:47 | External Medical Summary ---
Author Name Unknown Address Unknown Organization [id number]:LABORATORY [facility] – [place] - [facility] [address] [place] [address] Laboratory Report Ordering Provider Test Date Status NANDO MONROE 11/23/2023 11:44:15 Final Observation Date Value Abnormality Reference (Units ) Status Streptococcus agalactiae DNA [Presence] in Specimen by GUSTAVO with probe detection 11/23/2023 11:44:15 Positive Abnormal Negative Final Group B Streptococcus detect ed by culture-enhanced PCR (amplified probe). GBS GBSCT - [facility] 11/23/2023 11:44:15 15.3 Final GBS SPCCT - [facility] 11/23/2023 11:44:15 0.0 Final Performing Location LABORATORY [facility] – [place] - [address] [place] [address]
--- OUTSIDE RECORDS SUMMARY | 2023-12-21 23:47 | External Medical Summary | Summary of Care ---
Author Name Unknown Organization [facility] Address [address] [place] [address] Phone [phone] Care Team Providers Care Chemical Equipment Controller Name Role Phone Nadine Mata MD Primary Care Provider [phone] Encounter Details Date Type Department Care Team (Late st Contact Info) Description 10/17/2023 Result Scan Unspecified Department Blanca Johnson PA-C [address] [place] [address] <No scans attached> Allergies No known active allergiesdocumented as of this encounter (statuses as of 10/19/2023) Medications Medication Sig Dispensed Refills Start Date End Date Status Chapin Owens [place]-3 DHA Oral Tablet Chewable Take 1 Tablet [...] Gestational diabetes mellitus (GDM) in third tri [facility] 10/17/2023 Antepartum anemia complicating 024 Overview: [...] money to get more. Never true 08/03/2023 Sweet Depression Scale Answer Date Recorded Sweet Depression Scale Total 1 09/28/2023 The thought [...] No 08/03/2023 Does the household have a [facility]uni hospitallar source of income? (Household - for ages [...] Info) Description 10/23/2023 9:45 AM EDT Telemedicine Infusion Rn Obstetrics Maternal Medicine, [address] [address] Blanca Hernandez CRNP [address] [place] [address] 10/24/2023 3:00 PM EDT Telemedicine Virtual, Nutrition Services [address] [place] [address] Hayde Hayden, JEFFREY [address] [place] [address] [place] [address] 10/30/2023 7:30 AM EDT Office Visit Gynecology/Obstetrics [facility] [address] [facility] [place] [address] Laura Goldman PA-C [address] [place] [address] Nurse Jeison [facility] Return Di [address] [place] [address] 10/31/2023 7:30 AM EDT Office Visit Infusion Rn OB Maternal Medicine [facility] Gabby Santo [address] [place] [address] Dr [address] [place] [address] Da Loco MD [address] [place] [address] 10/31/2023 7:30 AM EDT Imaging Maternal Medicine [facility] Gabby Santo [address] [place] [address] Dr [address] [place] [address] Health Maintenance Due Date Last Done Comments [...] Not on filedocumented as of this encounter Procedures Procedure Name Priority Date/Time Associated Diagnosis Comments OUTSIDE LAB RESULTS 10/17/2023 documented in this encounter Results * OUTSIDE LAB RESULTS (10/17/2023) 10/17/2023 Blanca Johnson PA-C LABORATOR Y documented in this encounter Care Teams Chemical Equipment Controller Relationship Specialty Start Date End Date Nadine Mata MD [address] [place] [id number] PCP - General Family Medicine 06/14/19 documented as of this encounter
--- OUTSIDE RECORDS SUMMARY | 2023-12-21 23:47 | External Medical Summary ---
Author Name Unknown Address Unknown Organization K01:LABORATORY [facility] – [place] - [address] [place] [address] Laboratory Report Ordering Provider Test Date Status ANA ARREDONDO 11/13/2023 09:19:29 Final Observation Date Value Abnormality Reference (Units ) Status WBC, Total 11/13/2023 09:19:29 8.39 4.00-10.8 0 (K/uL) Final RBC 11/13/2023 09:19:29 4.31 3.85-5.15 (M/uL) Final Hemoglobin 11/13/2023 09:19:29 12.8 12.0-15.3 (g/dL) Final Anemia reflex testing trigge rs on a HGB < 12.0 for Females and HGB < 13.0 for Males in accordance with the WHO Anemia Guidelines
Anemia reflex testing triggers on a HGB < 12.0 for Females and HGB < 13.0 for Males in accordance with the WHO Anemia Guidelines HCT 11/13/2023 09:19:29 40.2 36.0-45.2 (%) Final MCV 11/13/2023 09:19:29 93.3 81.5-97.5 (fL) Final MCH 11/13/2023 09:19:29 29.7 27.0-34.0 (pg) Final MCHC 11/13/2023 09:19:29 31.8 32.0-36.0 (g/dL) Final RDW 11/13/2023 09:19:29 13.2 11.5-15.5 (%) Final Platelets 11/13/2023 09:19:29 207 140-400 (K /uL) Final MPV 11/13/2023 09:19:29 11.9 6.6-11.1 ( fL) Final Nucleated erythrocytes/100 leukocytes [Ratio] in Blood by Automated count 11/13/2023 09:19:29 0 <=0 (/100 WBCs) Fi nal Performing Location LABORATORY [facility] - [address] [place] [address]
--- OUTSIDE RECORDS SUMMARY | 2023-12-21 23:47 | External Medical Summary ---
Author Name Unknown Address Unknown Organization K01:LABORATORY [facility] – [place] - [address] [facility] [place] [place] [address] Laboratory Report Ordering Provider Test Date Status ANA ARREDONDO 11/13/2023 09:19:29 Final Observation Date Value Abnormality Reference (Units ) Status SYNC LEUKOCYTES IN BLOOD BY AUTOMATED COUNT 11/13/2023 09:19:29 8.39 4.00-10.80 (K/uL) Final Segs 11/13/2023 09:19:29 75.0 40.0-75.0 (%) Final Lymphs % 11/13/2023 09:19:29 16.7 Below low normal 18.0-42.0 (%) Final Monos 11/13/2023 09:19:29 6.3 1.0-11.0 (%) Final Eosinophils 11/13/2023 09:19:29 1.3 0.0-6.0 (%) Final Basos 11/13/2023 09:19:29 0.2 0.0-2.0 (%) Final Immature Granulocyte, Percent 11/13/2023 09:19:29 0.5 0.0-2.0 (%) Final Absolute Segs 11/13/2023 09:19:29 6.29 1.80-7.70 (K/uL) Final Lymphs, absolute 11/13/2023 09:19:29 1.40 1.00-4.80 (K/ul) Final Monos, Abs 11/13/2023 09:19:29 0.53 0.00-1.10 (K/uL) Final Eos, Abs 11/13/2023 09:19:29 0.11 0.00-0.70 (K/uL) Final Basos, Abs 11/13/2023 09:19:29 0.02 0.00-0.20 (K/uL) Final Immature Granulocytes, Number 11/13/2023 09:19:29 0.04 0.00-0.20 (K/uL) Final Performing Location LABORATORY [facility] – [place] - [address] [facility] [place] [address]
--- OUTSIDE RECORDS SUMMARY | 2023-12-21 23:47 | External Medical Summary | Summary of Care ---
Author Name Unknown Organization [facility] Address [address] [place] [address] Phone [phone] Care Team Providers Care Rn Delivery Name Role Phone Nadien Mata MD Primary Care Provider [phone] Reason for Referral * Evaluate & Treat - Unlimited Visits (Within 10 days (routine)) - Authorized Specialty Diagnoses / Procedures Referred By Cale reyes Referred To Contact Cotton Stomper / Nutrition Services Diagnoses Gestational diabetes mellitus (GDM) in third trimester, gestational diabetes method of control unspecified Maria Elena Perez PA-C [address] [place] [address] Referral ID Status Reason Start Date Expiration Date Visits Requested Visits Authorized [id number] Authorized Specialty Services Required 10/17/2023 999 999 Question Answer Is the patient ? Yes Referral Priority Within 10 days (routine) Where should this appointment be scheduled? [facility]ad Comments This referral is for Diabetes Self-Management Training (DSMT) by a recognized [place] Diabetes Association (ADA) health educator: Nurse (RN), Registered Dietitian Blueprinter (RDN), and/or Diabetes Medical Nutrition Therapy (MNT) Management (dietitian only). Diabetes educators are responsible for assessing the participant's diabetes education needs, and providing diabetes self-management training in accordance with the standards set by the ADA for DSMT. Any adjustment in diabetes therapy will be made within the guidelines of standards of practice and [facility] approved policies and procedures. I understand that the health educator will keep me informed. Areas of Education: Pathophysiology Nutrition Physical Activity Medications Monitoring Acute Complications Chronic Complications Psychosocial Management Promote Health/Behavior Change Participant will be offered 1:1 education training if there is a lack of classes available within 2 months. Providers can also order 1:1 training if indicated for participant for the following reasons: 1:1 Training for Insulin Initiation Participant Inappropriate for Class Setting By my electronic signature, I understand that my patient will be offered the comprehensive ADA content area above unless deemed not appropriate of I specify otherwise here: * Evaluate & Treat - Unlimited Visits (Within 10 days (routine)) - Authorized Specialty Diagnoses / Procedures Referred By Contalea t Referred To Contact Obstetrics/Gynecology / Maternal Medicine Diagnoses Gestational diabetes mellitus (GDM) in third trimester, gestational diabetes method of control unspecified Maria Elena Perez PA-C [address] [place] [address] Referral ID Status Reason Start Date Expiration Date Visits Requested Visits Authorized [id number] Authorized Specialty Services Required 10/17/2023 999 999 Question Answer Referral Priority Within 10 days (routine) Has the patient had a viability scan? Yes Date performed 05/08/2023 Location performed Radiology Reason for referral Diabetes Diabetes type Gestational Where should this appointment be scheduled? [facility] Comments /Para: LMP: Patient's last menstrual period was 03/12/2023. Patient is . JESSICA: 12/17/2023, by Last Menstrual Period Pre-Gravid BMI: 25.05 Encounter Details Date Type Department Care Team (Late st Contact Info) Description 10/17/2023 Telephone Gynecology/Obstetrics [facility] [place] [address] Maria Elena Perez PA-C [address] [place] [address] Allergies No known active allergiesdocumented as of this encounter (statuses as of 10/17/2023) Medications Medication Sig Dispensed Refills Start Date End Date Status Chapin Owens [place]-3 DHA Oral Tablet Chewable Take 1 Tablet [...] Gestational diabetes mellitus (GDM) in third tri mester 10/17/2023 Antepartum anemia complicating 024 Overview: Iron started 09/28 once daily. Repeat CBC around 7/5. Order is in. Abnormal glucose tolerance in [...] 10/17/2023) Immunizations Name Administration Dates Next Due DTaP [...] money to get more. Never true 08/03/2023 [place] Depression Scale Answer Date Recorded [place] Depression Scale Total 1 09/28/2023 The thought [...] encounter Miscellaneous Notes * Telephone Encounter - Sanam Mittal LPN - 10/17/2023 3:39 PM EDT Patient notified. * Addendum Note - Maria Elena Perez PA-C - 10/17/2023 3:11 PM EDT Addended by: MARIA ELENA PEREZ on: 10/17/2023 03:11 PM Modules accepted: Orders * Telephone Encounter - Maria Elena Perez PA-C - 10/17/2023 3:06 PM EDT Please let patient know I have reviewed the results of her 3 hour gtt. 3 of her levels were elevated, indicating a diagnosis of Gestational Diabetes. I have sent supplies to the [facility] pharmacy in [place]. Please have her check her sugars once fasting in the morning, and 1 hour following meals 3 times throughout the day. Have her record her readings and bring them with her to every appointment. I have placed an MFM referral at this time, and they should reach out to schedule. Thanks! Maria Elena Perez PA-C * Telephone Encounter - Wendy Morton RN - 10/17/2023 12:58 PM EDT Received patient's 3 hour glucose results by fax from outside lab. Please review and advise. They are scanned into chart. documented in this encounter Plan of Treatment Upcoming Encounters Date Type Department Care Team (Late st Contact Info) Description 10/23/2023 9:45 AM EDT Telemedicine Hot Oiler Obstetrics [facility], [place] [address] [address] Maria Elena Hernandez CRNP [address] [place] [address] 10/30/2023 7:30 AM EDT Office Visit Gynecology/Obstetrics [facility] [address] [place] [place] [address] Laura Goldman PA-C [address] [place] [address] Nurse Jeison [facility] [address] [facility] [address] 10/31/2023 7:30 AM EDT Office Visit Hot Oiler OB Maternal Medicine [facility] Gabby Santo [address] [place] [address] [address] [place] [address] Da Loco MD [address] [place] [address] 10/31/2023 7:30 AM EDT Imaging Maternal Medicine [facility] Gabby Santo [address] [place] [address] [address] [facility] [place] [id number] Scheduled Orders Name Type Priority Associated Diagnoses Orde r Schedule MFM US MATERNAL 1ST FETUS Medical Imaging Routine Gestational diabetes mellitus (GDM) in third trimester, gestational diabetes method of control unspecified Other specified related conditions, third trimester Expected: 10/17/2023, Expires: 11/15/2024 Scheduled Referrals Name Type Priority Associated Diagnoses Orde r Schedule MATERNAL MEDICINE REFERRAL OP Referral Within 10 days (routine) Gestational diabetes mellitus (GDM) in third trimester, gestational diabetes method of control unspecified Ordered: 10/17/2023 DIABETES MANAGEMENT EDUCATION (ADA) REFERRAL Referral Within 10 days (routine) Gestational diabetes mellitus (GDM) in third trimester, gestational diabetes method of control unspecified Ordered: 10/17/2023 Health Maintenance Due Date Last Done Comments [...] Diagnosis Gestational diabetes mellitus (GDM) in third trimester, gestational diabetes method of control unspecified- Primary Other specified related conditions, third trimester documented in this encounter Care Teams Rn Delivery Relationship Specialty Start Date End Date Nadine Mata MD [address] [place] [address] [phone] PCP - General Family Medicine 06/14/19 documented as of this encounter
--- OUTSIDE RECORDS SUMMARY | 2023-12-21 23:47 | External Medical Summary | Summary of Care ---
Author Name Unknown Organization [facility] Address [address] [place] [address] Phone [phone] Care Team Providers Care Underwater Hunter Trapper Name Role Phone Nadine Mata MD Primary Care Provider [phone] Reason for Referral * Evaluate & Treat - Unlimited Visits (Within 10 days (routine)) - Authorized Specialty Diagnoses / Procedures Referred By Cale reyes Referred To Contact Gas Plant Specialist / Nutrition Services Diagnoses Gestational diabetes mellitus (GDM) in third trimester, gestational diabetes method of control unspecified Maria Elena Perez PA-C [address] [place] [address] Referral ID Status Reason Start Date Expiration Date Visits Requested Visits Authorized [id number] Authorized Specialty Services Required 10/17/2023 999 999 Question Answer Is the patient ? Yes Referral Priority Within 10 days (routine) Where should this appointment be scheduled? Mahad Comments This referral is for Diabetes Self-Management Training (DSMT) by a recognized [place] Diabetes Association (ADA) school vocational educator: Nurse (RN), Registered Dietitian Audio Specialist (RDN), and/or Diabetes Medical Nutrition Therapy (MNT) Management (dietitian only). Diabetes educators are responsible for assessing the participant's diabetes education needs, and providing diabetes self-management training in accordance with the standards set by the ADA for DSMT. Any adjustment in diabetes therapy will be made within the guidelines of standards of practice and [facility] approved policies and procedures. I understand that the school vocational educator will keep me informed. Areas of [...] of control unspecified Maria Elena Perez PA-C [address] [place] [address] Referral ID Status Reason Start Date Expiration Date Visits Requested Visits Authorized [id number] Authorized Specialty Services Required 10/17/2023 999 999 [...] Info) Description 10/17/2023 Telephone Gynecology/Obstetrics [facility] [place] [address] Maria Elena Perez PA-C [address] [place] [address] Allergies No known active allergiesdocumented as of this encounter (statuses as of 10/17/2023) Medications Medication Sig Dispensed Refills Start Date End Date Status Chapin Owens [place]-3 DHA Oral Tablet Chewable Take 1 Tablet [...] money to get more. Never true 08/03/2023 [place] Depression Scale Answer Date Recorded [place] Depression Scale Total 1 09/28/2023 The thought [...] as of this encounter Miscellaneous Notes * Addendum Note - Maria Elena Perez [...] Diabetes. I have sent supplies to the [facility] pharmacy in [place]. Please have her check her sugars once [...] 10/30/2023 7:30 AM EDT Office Visit Gynecology/Obstetrics [facility] [address] [place] [address] Laura Goldman PA-C [address] [place] [address] Nurse Jeison [facility] Di [address] [place] [address] Scheduled Orders Name Type Priority Associated Diagnoses [...] trimester documented in this encounter Care Teams Underwater Hunter Trapper Relationship Specialty Start Date End Date Nadine Mata MD [address] [place] [id number] PCP - General Family Medicine 06/14/19 documented as of this encounter
--- OUTSIDE RECORDS SUMMARY | 2023-12-21 23:47 | External Medical Summary | Summary of Care ---
Author Name Unknown Organization [facility] Address [address] [facility] [place] [address] Phone [phone] Care Team Providers Care Long Term Care Pharmacist Name Role Phone Nadine Mata MD Primary Care Provider [phone] Reason for Visit * Reason Comments Return Visit Encounter Details Date Type Department Care Team (Late st Contact Info) Description 11/23/2023 11:15 AM EDT Office Visit Gynecology/Obstetric [facility] [address] [facility] [place] [address] Radha Santillan MD [address] [place] [address] 36 weeks gestation of *; Encounter for supervision of normal first in first trimester; Diet controlled gestational diabetes mellitus (GDM) in third trimester Allergies No known active allergiesdocumented as of this encounter (statuses as of 11/23/2023) Medications Medication Sig Dispensed Refills Start Date End Date Status Chapin Owens [place]-3 DHA Oral Tablet Chewable Take 1 Tablet [...] and dinner) 100 Strip 6 10/17/2023 Active OpziTouch Delica Lancets 30GIndications:Gestati onal diabetes mellitus (GDM) in third trimester, gestational diabetes method of control unspecified Use to test blood sugars 4 times daily (fasting, 1 hour after breakfast, lunch, and dinner) 100 Each 6 10/17/2023 Active Senna 8.6 MG Oral Capsule Take by mouth. Active documented as of this encounter (statuses as of 11/23/2023) Active Problems Problem Noted Date Diagnosed Date Gestational diabetes mellitus (GDM) in third [facility] 10/17/2023 Overview: Diagnosed at 31 weeks [...] blood sugars each week for MFM review 10/31/20237646-TPW-qjelvw. Multiple missed post prandial dinner values; messaged to be consistent with testing/reporting. 11/08/20235331-NTP-tilsdfzi 2 days in the past 8. Sent message via [employer] asking her to update numbers for review. 11/14/[id number]-GRP-gwatkrfo 5 of the past 7 days. 2 elevated fasting blood sugars and rare post prandial elevation 11/22/23: RPM reviewed; no blood sugars reported since 11/13/23. Requested updated blood sugars for this past week to review Last Assessment & Plan: I reviewed the [...] as of this encounter (statuses as of 11/23/2023) Resolved Problems Problem Noted Date Diagnosed Date Resolved Date Viral warts 01/13/2009 03/25/2015 Overview: Tazorac .1% gel at bedtime ICD-10 update of inactive term Adolescent Acne 11/02/2005 03/25/2015 documented as of this encounter (statuses as of 11/23/2023) Immunizations Name Administration Dates Next Due HIB [...] money to get more. Never true 08/03/2023 [place] Depression Scale Answer Date Recorded [place] Depression Scale Total 1 09/28/2023 The thought [...] Sign Reading Time Taken Comments Blood Pressure 102/72 11/23/2023 11:12 AM EDT Pulse - - Temperature - - Respiratory Rate - - Oxygen Saturation - - Inhaled Oxygen Concentration - - Weight 92 kg (202 lb 12.8 oz) 11/23/2023 11:12 A M EDT Height - - Body Mass Index 31.76 09/28/2023 8:44 AM EDT documented in this encounter Progress Notes * Radha Santillan MD - 11/23/2023 11:37 AM EDT Jo Ann Johnson is a 33 year old female here for her routine OB appointment at 36w4d Her Estimated Date of Delivery: 12/17/23 REVIEW OF SYSTEMS: She affirms movement. Denies vaginal bleeding, LOF, contractions, N/V, headaches [place] Depression Scale: No data recorded [place] suicide question and score: Score of 3 = Yes, quite often. Score of 2 = Sometimes. Score of 1 = Hardly ever No data recorded PHYSICAL EXAM: Filed Vitals: 11/23/23 1112 BP: 102/72 Weight: 92 kg (202 lb 12.8 oz) +FHT 150 bpm Fundal height 36 cm ASSESSMENT/PLAN: (O24.410) Diet controlled gestational diabetes mellitus (GDM) in third trimester Plan: Continue management with ADAPT. (Z3A.36) 36 weeks gestation of (primary encounter diagnosis) Plan: GROUP B STREP CULTURE/PCR - GBS swab collected today Accountant Property Documentation Patient offered behavioral intervention specialist and accepted. Name of behavioral intervention specialist: Janki Pressley - labor precautions and kick counts reviewed - RTO in 1 week Radha Santillan MD * Janki Pressley MED ASSIST - 11/23/2023 11:12 AM EDT 36w4d Denies vaginal bleeding/rom + movements Increased pelvic pressure/discomfort. GBS swab today documented in this encounter Plan of Treatment Upcoming Encounters Date Type Department Care Team (Late st Contact Info) Description 12/01/2023 9:45 AM EDT Office Visit Gynecology/Obstetrics [facility] [address] [place] [address] Sowmya Shepard CRNP [address] [place] [address] Pending Results Name Type Priority Associated Diagnoses Date /Time GROUP B STREP CULTURE/PCR Lab Routine 36 weeks gestation of 11/23/2023 11:44 AM EDT Scheduled Orders Name Type Priority Associated Diagnoses Orde r Schedule GROUP B STREP CULTURE/PCR Lab Routine 36 weeks gestation of Expected: 11/23/2023, Expires: 11/22/2024 Health Maintenance Due Date Last Done Comments [...] as of this encounter Visit Diagnoses Diagnosis 36 weeks gestation of - Primary state, incidental Encounter for supervision of normal first in first trimester Supervision of normal first Diet controlled gestational diabetes mellitus (GDM) in third trimester documented in this encounter Care Teams Long Term Care Pharmacist Relationship Specialty Start Date End Date Nadine Mata MD [address] [place] [address] PCP - General Family Medicine 06/14/19 documented as of this encounter
--- OUTSIDE RECORDS SUMMARY | 2023-12-21 23:47 | External Medical Summary | Summary of Care ---
Author Name Unknown Organization [facility] Address [address] [place] [address] Phone [phone] Care Team Providers Care Manager Hiv Name Role Phone Nadine Mata MD Primary Care Provider Encounter Details Date Type Department Care Team (Late st Contact Info) Description 10/31/2023 7:30 AM EDT Office Visit Head Strength And Conditioning Coach OB Maternal Medicine [facility] Gabby Santo [address] [place] [address] [address] [place], [place] [phone] Da Loco MD [address] [place] [address] Mood disorder (HCC)*; Diet controlled gestational diabetes mellitus (GDM) in third trimester Allergies No known active allergiesdocumented as of this encounter (statuses as of 10/31/2023) Medications Medication Sig Dispensed Refills Start Date End Date Status Chapin Owens [place]-3 DHA Oral Tablet Chewable Take 1 Tablet [...] as of this encounter (statuses as of 10/31/2023) Active Problems Problem Noted Date Diagnosed Date Gestational diabetes mellitus (GDM) in third [facility] 10/17/2023 Overview: Diagnosed at 31 weeks Nutrition [...] for MFM review Last Assessment & Plan: I reviewed [...] as of this encounter (statuses as of 10/31/2023) Resolved Problems Problem Noted Date Diagnosed Date Resolved Date Viral warts 01/13/2009 03/25/2015 Overview: Tazorac .1% gel at bedtime ICD-10 update of inactive term Adolescent Acne 11/02/2005 03/25/2015 documented as of this encounter (statuses as of 10/31/2023) Immunizations Name Administration Dates Next Due HIB [...] money to get more. Never true 08/03/2023 [place] Depression Scale Answer Date Recorded [place] Depression Scale Total 1 09/28/2023 The thought [...] as of this encounter Progress Notes * Da Loco MD - 10/31/2023 7:49 AM EDT MATERNAL MEDICINE VISIT Jo Ann Johnson is at 33w2d who presents to [facility] for an ultrasound and follow-up of her high risk . She is being seen today by Maternal- Medicine for the following reasons: Problem List Items Addressed This Visit Mood disorder (HCC) - Primary (Chronic) Gestational diabetes mellitus (GDM) in third trimester I reviewed the ultrasound with herThe anatomy that was visualized appears unremarkable and the overall estimated weight is consistent with the 54th percentile for the gestational age. Thefetus is in the vertex presentation and the amniotic fluid volume is normal at 12 cm. She states that her blood sugars are well controlled on diet. We discussed the plan of care if she were to need medication to control her blood sugars. At this point, there is no clinical indication for return. We reviewed today's ultrasound findings. (For full report, please refer to ultrasound report provided separately). Ms. Johnson's questions were answered to her satisfaction. Thank you for allowing us to participate in the care of this patient. Please call with any questions. I spent 20 minutes with Ms. Johnson of which greater than 50% was spent in face to face consultationand coordination of care for the above. Da Loco MD 10/31/2023 7:49 AM documented in this encounter Miscellaneous Notes * Assessment & Plan Note - Da Loco MD - 10/31/2023 8:15 AM EDT Associated Problem(s): Gestational diabetes mellitus (GDM) in third trimester I reviewed the ultrasound with herThe anatomy that was visualized appears unremarkable and the overall estimated weight is consistent with the 54th percentile for the gestational age. Thefetus is in the vertex presentation and the amniotic fluid volume is normal at 12 cm. She states that her blood sugars are well controlled on diet. We discussed the plan of care if she were to need medication to control her blood sugars. At this point, there is no clinical indication for return. documented in this encounter Plan of Treatment Upcoming Encounters Date Type Department Care Team (Late st Contact Info) Description 11/13/2023 8:45 AM EDT Office Visit Gynecology/Obstetrics Berna Mchugh [address] [place] [address] Laura Goldman PA-C [address] [place] [address] Nurse Jeison [facility] Return Di [address] [place] [address] Health Maintenance Due Date Last Done Comments [...] as of this encounter Visit Diagnoses Diagnosis Mood disorder (HCC)- Primary Unspecified episodic mood disorder Diet controlled gestational diabetes mellitus (GDM) in third trimester documented in this encounter Care Teams Manager Hiv Relationship Specialty Start Date End Date Nadine Mata MD [address] [place] [address] PCP - General Family Medicine 06/14/19 documented as of this encounter
--- OUTSIDE RECORDS SUMMARY | 2023-12-21 23:47 | External Medical Summary | Summary of Care ---
Author Name Unknown Organization [facility] Address [address] [facility] [place] [address] Phone [phone] Care Team Providers Care Straw Hat Brusher Name Role Phone Nadine Mata MD Primary Care Provider [phone] Reason for Visit * Reason Comments Return Visit Encounter Details Date Type Department Care Team (Late st Contact Info) Description 11/13/2023 8:45 AM EDT Office Visit Gynecology/Obstetri julianne Mchugh [address] [place] [address] Laura Goldman PA-C [address] [place] [address] Nurse Jeison [facility] Return Di [address] [place] [address] Encounter for supervision of normal first in first trimester*; Diet controlled gestational diabetes mellitus (GDM) in third trimester Allergies No known active allergiesdocumented as of this encounter (statuses as of 11/13/2023) Medications Medication Sig Dispensed Refills Start Date End Date Status Chapin Owens [place]-3 DHA Oral Tablet Chewable Take 1 Tablet [...] Date Gestational diabetes mellitus (GDM) in third [facility] 10/17/2023 Overview: Diagnosed at 31 weeks [...] blood sugars each week for MFM review 10/31/20237341-MZF-fdgwtq. Multiple missed post prandial dinner values; messaged to be consistent with testing/reporting. 11/08/20232488-RSS-uxiknhyy 2 days in the past 8. Sent [...] money to get more. Never true 08/03/2023 [place] Depression Scale Answer Date Recorded [place] Depression Scale Total 1 09/28/2023 The thought [...] Description 11/13/2023 9:20 AM EDT Laboratory Laboratory, [facility] [address] [place] [id number] [facility] [place] [address] Arrived 11/23/2023 11:15 AM EDT Office Visit Gynecology/Obstetrics [facility] [address] [place] [address] Radha Santillan MD [address] [place] [address] Health Maintenance Due Date [...] trimester documented in this encounter Care Teams Straw Hat Brusher Relationship Specialty Start Date End Date Nadine Mata MD [address] [place] [phone] PCP - General Family Medicine 06/14/19 documented as of this encounter
--- OUTSIDE RECORDS SUMMARY | 2023-12-21 23:48 | External Medical Summary ---
Author Name Unknown Address Unknown Organization K01:[facility] - [address] [place] [address] Laboratory Report Ordering Provider Test Date Status JENARO STEWART 09/28/2023 09:24:11 Final Observation Date Value Abnormality Reference (Units ) Status MYCODE SPECIMEN-SST 09/28/2023 09:24:11 Freezing of extracted DNA, whole blood and/or serum. Final Performing Location [facility] - [address] [place] [address]
--- OUTSIDE RECORDS SUMMARY | 2023-12-21 23:48 | External Medical Summary | Summary of Care ---
Author Name Unknown Organization [facility] Address [address] [facility] [place] [address] Phone [phone] Care Team Providers Care Fryline Attendant Name Role Phone Nadine Mata MD Primary Care Provider [phone] Encounter Details Date Type Department Care Team (Late st Contact Info) Description 09/28/2023 Telephone Gynecology/Obstetrics [facility] [address] [place] [address] Sowmya Shepard CRNP [address] [place] [address] Allergies No known active allergiesdocumented as of this encounter (statuses as of 09/28/2023) Medications Medication Sig Dispensed Refills Start Date End Date Status ketoconazole 2 % shampooIndications:Pi tyrosporum folliculitis Apply topically to affected area every 3 days. Apply to chest and back 120 mL 2 03/23/2018 Active Additional Information Patient not taking.Reported on 05/12/2023 Tretinoin 0.1 % creamIndications:Acne vulgaris Apply topically to affected area at bedtime. Apply to face at bedtime 45 g 3 03/23/2018 Active Additional Information Patient not taking.Reported on 05/12/2023 fluconazole (DIFLUCAN) 200 MG TabletIndications:Jm orrhea 1 tablet weekly for 6 weeks 6 Tab 08/23/2018 Active Additional Information Patient not taking.Reported on 05/12/2023 FLUoxetine (PROZAC) 10 MG Capsule Take 1 Cap by mouth daily. 30 Cap 12 09/06/2018 Active Additional Information Patient not taking.Reported on 05/12/2023 Benzoyl Peroxide-Erythromycin 5-3 % gelIndications:Acne vulgaris apply once a day all over face for acne 45.2 g 11 04/25/2019 Active Additional Information Patient not taking.Reported on 05/12/2023 predniSONE (DELTASONE) 10 MG TabletIndications:Urt icaria Take 5 tabs for 2 days, 4 tabs for 2 days, 3 tabs for 2 days, 2 tabs for 2 days 1 tab for 2 days 30 Tab 06/14/2019 Active Additional Information Patient not taking.Reported on 05/12/2023 Flinstones Gummies [place]-3 DHA Oral Tablet Chewable Take 1 Tablet by mouth in the morning. Active documented as of this encounter (statuses as of 09/28/2023) Active Problems Problem Noted Date Diagnosed Date Encounter for supervision of normal first in first trimester 05/15/2023 Irritable bowel syndrome with constipation 07/06 Mood disorder 03/27/2018 ADVANCE DIRECTIVE INFORMATION 05/12/2005 Overview: Not applicable (under age of 18) Estimated Date of Delivery Comme nts Yes 12/17/2023 Based on last me nstrual period of 03/12/2023 documented as of this encounter (statuses as of 09/28/2023) Resolved Problems Problem Noted Date Diagnosed Date Resolved Date Viral warts 01/13/2009 03/25/2015 Overview: Tazorac .1% gel at bedtime ICD-10 update of inactive term Adolescent Acne 11/02/2005 03/25/2015 documented as of this encounter (statuses as of 09/28/2023) Immunizations Name Administration Dates Next Due HIB [...] money to get more. Never true 08/03/2023 [place] Depression Scale Answer Date Recorded [place] Depression Scale Total 1 09/28/2023 The thought of harming myself has occurred to me . Never 09/28/2023 Estimated Date of Delivery Comme nts Yes [...] Telephone Encounter - Wendy Morton RN - 09/28/2023 2:16 PM EDT Patient brought FMLA paperwork to appointment today. Placed on [employer]'s desk for completion. Advisedpatient will fax and notify her once completed. documented in this encounter Plan of Treatment Upcoming Encounters Date Type Department Care Team (Late st Contact Info) Description 10/13/2023 9:30 AM EDT Office [facility] [address] [place] [address] Zeenat Spencer, DNP, CNM [address] [place] [address] Health Maintenance Due Date Last Done Comments Depression Screening 07/07/2019 07/06/2018 COVID-19 Vaccine (2022- season) 2022 Pap Smear 05/15/2026 05/15/2023 Cervical [...] filedocumented as of this encounter Care Teams Fryline Attendant Relationship Specialty Start Date End Date Nadine Mata MD [address] [place] [address] [place] [phone] PCP - General Family Medicine 06/14/19 documented as of this encounter
--- OUTSIDE RECORDS SUMMARY | 2023-12-21 23:48 | External Medical Summary | Summary of Care ---
Author Name Unknown Organization [facility] Address [address] [place] [address] Phone [phone] Care Team Providers Care Brim Blocker Name Role Phone Nadine Mata MD Primary Care Provider [phone] Encounter Details Date Type Department Care Team (Late st Contact Info) Description 09/29/2023 Orders Only Laboratory, [facility] [address] [place] [address] Blanca Johnson PA-C [address] [facility] [place] [address] Antepartum anemia complicating *; Abnormal glucose tolerance in mother complicating Allergies No known active allergiesdocumented as of this encounter (statuses as of 10/13/2023) Medications Medication Sig Dispensed Refills Start Date End Date Status ketoconazole 2 % 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 Apply to chest and back 120 mL 2 03/23/2018 Active Additional Information Patient not taking.Reported on 05/12/2023 Tretinoin 0.1 % creamIndications:Ac ne vulgaris Apply topically to affected area at bedtime. Apply to face at bedtime 45 g 3 03/23/2018 Active Additional Information Patient not taking.Reported on 05/12/2023 fluconazole (DIFLUCAN) 200 MG TabletIndications:S eborrhea 1 tablet weekly for 6 weeks 6 Tab 08/23/2018 Active Additional Information Patient not taking.Reported on 05/12/2023 FLUoxetine (PROZAC) 10 MG Capsule Take 1 Cap by mouth daily. 30 Cap 12 09/06/2018 Active Additional Information Patient not taking.Reported on 05/12/2023 Benzoyl Peroxide-Erythromyc in 5-3 % gelIndications:Acne vulgaris apply once a day all over face for acne 45.2 g 11 04/25/2019 Active Additional Information Patient not taking.Reported on 05/12/2023 predniSONE (DELTASONE) 10 MG TabletIndications:U rticaria Take 5 tabs for 2 days, 4 tabs for 2 days, 3 tabs for 2 days, 2 tabs for 2 days 1 tab for 2 days 30 Tab 06/14/2019 Active Additional Information Patient not taking.Reported on 05/12/2023 Flinstones Gummies [place]-3 DHA Oral Tablet Chewable Take 1 Tablet by mouth in the morning. Active Iron-Vitamin C 65-125 MG Oral Tablet (Vitron C)Indications:Antep artum anemia complicating Take 1 Tablet by mouth in the morning. 30 Tablet 5 09/29/2023 Active Docusate Sodium 100 MG Oral Capsule (Colace)Indications :Antepartum anemia complicating Take 1 tablet by mouth twice daily as needed for constipation. 60 Capsule 5 09/29/2023 Active documented as of this encounter (statuses as of 10/13/2023) Active Problems Problem Noted Date Diagnosed Date Antepartum anemia complicating 024 Overview: Iron started [...] as of this encounter (statuses as of 10/13/2023) Resolved Problems Problem Noted Date Diagnosed Date Resolved Date Viral warts 01/13/2009 03/25/2015 Overview: Tazorac .1% gel at bedtime ICD-10 update of inactive term Adolescent Acne 11/02/2005 03/25/2015 documented as of this encounter (statuses as of 10/13/2023) Immunizations Name Administration Dates Next Due HIB [...] money to get more. Never true 08/03/2023 [place] Depression Scale Answer Date Recorded [place] Depression Scale Total 1 09/28/2023 The thought [...] 10/13/2023 9:30 AM EDT Office Visit Gynecology/Obstetrics [facility] [address] [facility] [place] [address] Zeenat Spencer, ROGERIO, CNM [address] [place] [address] Scheduled Orders Name Type Priority Associated Diagnoses Orde r Schedule CBC WITH WBC DIFFERENTIAL AND ANEMIA REFLEX WORKUP Lab Routine Antepartum anemia complicating Expected: 10/27/2023 (Approximate), Expires: 09/28/2024 GESTATIONAL GLUCOSE TOLERANCE, 3 HOUR Lab Routine Abnormal glucose tolerance in mother complicating Expected: 09/29/2023 (Approximate), Expires: 09/28/2024 Health Maintenance Due Date Last Done Comments [...] encounter Visit Diagnoses Diagnosis Antepartum anemia complicating - Primary Anemia, antepartum Abnormal glucose tolerance in mother complicating Abnormal maternal glucose tolerance, complicating , childbirth, or the puerperium, unspecified as to episode of care documented in this encounter Care Teams Brim Blocker Relationship Specialty Start Date End Date Nadine Mata MD [address] [place] [address] [place] [address] PCP - General Family Medicine 06/14/19 documented as of this encounter
--- OUTSIDE RECORDS SUMMARY | 2023-12-21 23:48 | External Medical Summary | Summary of Care ---
Author Name Unknown Organization [facility] [address] [facility] [address] Phone [phone] Care Team Providers Care Wall Man Name Role Phone Nadine Mata MD Primary Care Provider [phone] Reason for Visit * Reason Comments Return Visit Encounter Details Date Type Department Care Team (Late st Contact Info) Description 09/28/2023 9:00 AM EDT Office Visit Gynecology/Obstetric s [facility] [address] [place] [address] Sowmya Shepard CRNP [address] [place] [address] Encounter for supervision of normal first in first trimester*; Need for yhjmvwlcrw-nnykysv-sl rtussis (Tdap) vaccine Allergies No known active allergiesdocumented as of [...] Patient not taking.Reported on 05/12/2023 Flinstones Gummies [place]-3 DHA Oral Tablet Chewable Take 1 Tablet [...] Sign Reading Time Taken Comments Blood Pressure 114/66 09/28/2023 8:44 AM EDT Pulse - - Temperature - - Respiratory Rate - - Oxygen Saturation - - Inhaled Oxygen Concentration - - Weight 88.5 kg (195 lb 3.2 oz) 09/28/2023 8:44 A M EDT Height 170.2 cm (5' 7") 09/28/2023 8:44 AM EDT Body Mass Index 30.57 09/28/2023 8:44 AM EDT documented in this encounter Progress Notes * Sowmya Shepard CRNP - 09/28/2023 9:01 AM EDT 28w4d Complaints: BLE edema continues. Feeling well otherwise. Good FM. No contractions, bleeding, or LOF. Glucola, TDAP today. CARISSA Eason documented in this encounter Nursing Notes * Wendy Morton RN - 09/28/2023 9:05 AM EDT Patient here for tdap injection. Patient doing well no complaints. Injection given IM as ordered. Patient tolerated well. Patient to follow up as directed. Patient instructed to call if any complications. Patient verbalized understanding of instructions given and her follow up appt for 2 w. Injection site: Left Deltoid Medication Source: Dispensed stock medication Wendy Morton RN * Wendy Morton RN - 09/28/2023 8:44 AM EDT Patient here for NADINE 28w4d + FM Glucose and 28 wk labs today Wendy Morton RN documented in this encounter Plan of Treatment Upcoming Encounters Date Type Department Care Team (Late st Contact Info) Description 10/13/2023 9:30 AM EDT Office Visit Gynecology/Obstetrics [facility] [address] [facility] [place] [address] Zeenat Spencer, ROGERIO, CNM [address] [place] [address] Health Maintenance Due Date Last Done Comments Depression Screening 07/07/2019 07/06/2018 COVID-19 Vaccine (1 - 2023-24 season) 2022 Pap Smear 05/15/2026 05/15/2023 Cervical [...] first trimester- Primary Supervision of normal first Need for mznpanfjuh-efdqhyf-fsxdfgtkg (Tdap) vaccine Need for prophylactic vaccination with combined ooaiatnwxd-tqehsxy-wlfjgcvfd (DTP) vaccine documented in this encounter Care Teams Wall Man Relationship Specialty Start Date End Date Nadine Mata MD [address] [place] [id number] PCP - General Family Medicine 06/14/19 documented as of this encounter
--- OUTSIDE RECORDS SUMMARY | 2023-12-21 23:48 | External Medical Summary ---
Author Name Unknown Address Unknown Organization [id number]:[facility] [place] [address] [place] [address] Laboratory Report Ordering Provider Test Date Status ANA ARREDONDO 09/28/2023 09:24:11 Final Observation Date Value Abnormality Reference (Units ) Status Creatinine 09/28/2023 09:24:11 0.5 0.5-1.0 (mg/dL) Final Glomerular filtration rate/1.73 sq M.predicted [Volume Rate/Area] in Serum, Plasma or Blood by Creatinine-based formula (CKD-EPI) 09/28/2023 09:24:11 >90 >=60 (mL/min) Final eGFR is calculated based on the CKD-EPI 2020 equation Performing Location [facility] [place] [address] [place] [address]
--- OUTSIDE RECORDS SUMMARY | 2023-12-21 23:48 | External Medical Summary ---
Author Name Unknown Address Unknown Organization [id number]:[facility] - [address] [place] [address] Laboratory Report Ordering Provider Test Date Status ANA ARREDONDO 09/28/2023 09:24:11 Final Observation Date Value Abnormality Reference (Units ) Status SYNC LEUKOCYTES IN BLOOD BY AUTOMATED COUNT 09/28/2023 09:24:11 12.47 Above high normal 4.00-10.80 (K/uL) Final Segs 09/28/2023 09:24:11 81.2 Above high normal 40.0-75.0 (%) Final Lymphs % 09/28/2023 09:24:11 11.5 Below low normal 18.0-42.0 (%) Final Monos 09/28/2023 09:24:11 5.2 1.0-11.0 (%) Final Eosinophils 09/28/2023 09:24:11 1.1 0.0-6.0 (%) Final Basos 09/28/2023 09:24:11 0.3 0.0-2.0 (%) Final Immature Granulocyte, Percent 09/28/2023 09:24:11 0.7 0.0-2.0 (%) Final Absolute Segs 09/28/2023 09:24:11 10.12 Above high normal 1.80-7.70 (K/uL) Final Lymphs, absolute 09/28/2023 09:24:11 1.43 1.00-4.80 (K/ul) Final Monos, Abs 09/28/2023 09:24:11 0.65 0.00-1.10 (K/uL) Final Eos, Abs 09/28/2023 09:24:11 0.14 0.00-0.70 (K/uL) Final Basos, Abs 09/28/2023 09:24:11 0.04 0.00-0.20 (K/uL) Final Immature Granulocytes, Number 09/28/2023 09:24:11 0.09 0.00-0.20 (K/uL) Final Performing Location [facility] [place] [address] [facility] [address]
--- OUTSIDE RECORDS SUMMARY | 2023-12-21 23:48 | External Medical Summary | Summary of Care ---
Author Name Unknown Organization [facility] Address [address] [facility] [place] [address] Phone [phone] Care Team Providers Care Health Information Assistant Name Role Phone Nadine Mata MD Primary Care Provider [phone] Reason for Visit * Reason Comments Return Visit Encounter Details Date Type Department Care Team (Late st Contact Info) Description 08/31/2023 9:15 AM EDT Office Visit Gynecology/Obstetric [facility] [address] [facility] [place] [address] Blanca Johnson PA-C [address] [place] [address] Encounter for supervision of normal first in first trimester* Allergies No known active allergiesdocumented as [...] Patient not taking.Reported on 05/12/2023 Flinstones Gummies [place]-3 DHA Oral Tablet Chewable Take 1 Tablet [...] Inj 02/10/2017 TDAP (age 10 and older)(Boostrix) 02/17/2015 TDAP, Age 7 and older, IM (Adacel) [...] money to get more. Never true 08/03/2023 [place] Depression Scale Answer Date Recorded Last EPDS Total Score Not on file 05/15/2023 The thought of harming myself has occurred to me . Never 05/15/2023 Childcare Answer Date Recorded Do you feel [...] Sign Reading Time Taken Comments Blood Pressure 112/64 08/31/2023 9:16 AM EDT Pulse - - Temperature - - Respiratory Rate - - Oxygen Saturation - - Inhaled Oxygen Concentration - - Weight 86.7 kg (191 lb 3.2 oz) 08/31/2023 9:16 A M EDT Height 170.2 cm (5' 7") 08/31/2023 9:16 AM EDT Body Mass Index 29.95 08/31/2023 9:16 AM EDT documented in this encounter Progress Notes * Blanca Johnson PA-C - 08/31/2023 9:17 AM EDT Jo Ann Johnson is a 33 year old female here for her routine OB appointment at 24w4d Her Estimated Date of Delivery: 12/17/23 She is reporting intermittent swelling that improves with elevation and compression stockings. Reports drinking adequate amounts of water daily. Denies any others symptoms to include headaches, vision changes, RUQ pain, deep calf pain. REVIEW OF SYSTEMS: She affirms movement. Denies vaginal bleeding, LOF, contractions, N/V, chest pain. PHYSICAL EXAM: Filed Vitals: 08/31/23 0916 BP: 112/64 Weight: 86.7 kg (191 lb 3.2 oz) Height: 1.702 m (5' 7") +FHT 140s Fundal height 24 cm ASSESSMENT/PLAN: Encounter for supervision of normal first in first trimester (Primary) Supervision of - we reviewed and ordered GTT, RPR, CBC for patient to complete between now and her next visit. - reviewed recommendation for Tdap vaccine at next visit - rhogam not at next visit d/t A+ blood type - encouraged to continue with compression stockings, adequate hydration, movement, and leg elevation for intermittent swelling. To reach out with any new/worsening JASMINE, vision changes, RUQ pain. Will continue to monitor BP at subsequent visits. - offered baseline PCR. Patient declines at this time. RTO in 4 weeks Blanca Johnson PA-C 08/31/2023 documented in this encounter Nursing Notes * Wendy Morton RN - 08/31/2023 9:18 AM EDT Patient here for NADINE visit No concerns 28 week labs pended + Wendy Morton RN documented in this encounter Plan of Treatment Upcoming Encounters Date Type Department Care Team (Late st Contact Info) Description 10/13/2023 9:30 AM EDT Office Visit Gynecology/Obstetrics [facility] [address] [facility] [place] [address] Zeenat Spencer, ROGERIO, CNM 400 [facility] [place] [address] Health Maintenance Due Date Last Done Comments Depression Screening 07/07/2019 07/06/2018 COVID-19 Vaccine (2022-24 season) 2022 Pap Smear 05/15/2026 05/15/2023 Cervical [...] Not on filedocumented as of this encounter Results * (ABNORMAL) 50-G GESTATIONAL GLUCOSE, 1 HOUR (09/28/2023 9:24 AM EDT) 50-g Gestational Glucose, 1 Hour 170(H) 70 - 129 mg/dL 09/28/2023 10:15 AM EDT [facility] [place] [facility] Blood Venous blood specimen / Unknown Venipuncture / Unknown 09/28/2023 9:24 AM EDT 09/28/2023 9:24 AM EDT Blanca Johnson PA-C LAB BLOOD ORDERABLES [facility] [place] [facility] [address] [facility] [place] [address] documented in this encounter Visit Diagnoses Diagnosis Encounter for supervision of normal first in first trimester- Primary Supervision of normal first documented in this encounter Care Teams Health Information Assistant Relationship Specialty Start Date End Date Nadine Mata MD [address] [place] [phone] PCP - General Family Medicine 06/14/19 documented as of this encounter
--- OUTSIDE RECORDS SUMMARY | 2023-12-21 23:48 | External Medical Summary | Summary of Care ---
Author Name Unknown Organization [facility] Address [address] [facility] [place] [address] Phone [phone] Care Team Providers Care Brass Pickler Name Role Phone Nadine Mata MD Primary Care Provider [phone] Encounter Details Date Type Department Care Team (Late st Contact Info) Description 08/04/2023 11:45 AM EDT Office Visit Gynecology/Obstetric s [facility] [address] [place] [address] Laura Goldman PA-C [address] [place] [address] Encounter for supervision of normal first in second trimester* Allergies No known active allergiesdocumented as of this encounter (statuses as of 08/04/2023) Medications Medication Sig Dispensed Refills Start Date End Date Status ketoconazole 2 % 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 Apply to chest and back 120 mL 2 03/23/2018 Active Additional Information Patient not taking.Reported on 05/12/2023 Tretinoin 0.1 % creamIndications:A cne vulgaris Apply topically to affected area at bedtime. Apply to face at bedtime 45 g 3 03/23/2018 Active Additional Information Patient not taking.Reported on 05/12/2023 fluconazole (DIFLUCAN) 200 MG TabletIndications: Seborrhea 1 tablet weekly for 6 weeks 6 Tab 0 08/23/2018 Active Additional Information Patient not taking.Reported on 05/12/2023 FLUoxetine (PROZAC) 10 MG Capsule Take 1 Cap by mouth daily. 30 Cap 12 09/06/2018 Active Additional Information Patient not taking.Reported on 05/12/2023 Benzoyl Peroxide-Erythromy inna 5-3 % gelIndications:Acn e vulgaris apply once a day all over face for acne 45.2 g 11 04/25/2019 Active Additional Information Patient not taking.Reported on 05/12/2023 predniSONE (DELTASONE) 10 MG TabletIndications: Urticaria Take 5 tabs for 2 days, 4 tabs for 2 days, 3 tabs for 2 days, 2 tabs for 2 days 1 tab for 2 days 30 Tab 0 06/14/2019 Active Additional Information Patient not taking.Reported on 05/12/2023 Flinstones Gummies [place]-3 DHA Oral Tablet Chewable Take 1 Tablet by mouth in the morning. 0 Active Methylcellulose, Laxative, (CITRUCEL) oral powder Take by mouth 2 times a day as needed for Constipation. 0 08/04/2023 Discontinue d(Medicatio n List Clean Up) spironolactone (ALDACTONE) 50 MG TabletIndications: Adult acne 1 tablet daily w/food 90 Tab 1 08/23/2018 08/04/2023 Discontinue d(Medicatio n List Clean Up) documented as of this encounter (statuses as of 08/04/2023) Active Problems Problem Noted Date Diagnosed Date Encounter for supervision of normal first in first trimester 05/15/2023 Irritable bowel syndrome with constipation 07/06 Mood disorder 03/27/2018 ADVANCE DIRECTIVE INFORMATION 05/12/2005 Overview: Not applicable (under age of 18) Estimated Date of Delivery Comme nts Yes 12/17/2023 Based on last me nstrual period of 03/12/2023 documented as of this encounter (statuses as of 08/04/2023) Resolved Problems Problem Noted Date Diagnosed Date Resolved Date Viral warts 01/13/2009 03/25/2015 Overview: Tazorac .1% gel at bedtime ICD-10 update of inactive term Adolescent Acne 11/02/2005 03/25/2015 documented as of this encounter (statuses as of 08/04/2023) Immunizations Name Administration Dates Next Due DTaP [...] 02/10/2017 TDAP (age 10 and older)(Boostrix) 02/17/2015 TDAP (age 11 and older)(Adacel) 05/12/2005 Varicella Vaccine (Chicken Pox) 04/19/2017,07/29 documented [...] money to get more. Never true 08/03/2023 [place] Depression Scale Answer Date Recorded Last EPDS Total Score Not on file 05/15/2023 The thought of harming myself has occurred to me . Never 05/15/2023 Estimated Date of Delivery Comme nts Yes [...] Sign Reading Time Taken Comments Blood Pressure 110/64 08/04/2023 9:29 AM EDT Pulse - - Temperature - - Respiratory Rate - - Oxygen Saturation - - Inhaled Oxygen Concentration - - Weight 83.9 kg (185 lb) 08/04/2023 9:29 AM EDT Height 170.2 cm (5' 7") 08/04/2023 9:29 AM EDT Body Mass Index 28.98 08/04/2023 9:29 AM EDT documented in this encounter Progress Notes * Laura Goldman PA-C - 08/04/2023 9:33 AM EDT 20w5d Anatomy today, + cardiac activity -- final report pending. MSAFP and NIPT complete and negative. Denies VB, LOF. Feeling some quickening. Has anterior placenta. RTC in 4 weeks Laura Goldman PA-C * Colleen Shahid LPN - 08/04/2023 9:31 AM EDT 20W2D ANATOMY documented in this encounter Plan of Treatment Upcoming Encounters Date Type Department Care Team (Late st Contact Info) Description 08/31/2023 9:15 AM EDT Office Visit Gynecology/Obstetrics [facility] 132 [facility] [place] [address] Blanca Johnson PA-C [address] [place] [address] Health Maintenance Due Date Last Done Comments Depression Screening 07/07/2019 07/06/2018 COVID-19 Vaccine ( - 2022-24 season) 2022 DTaP,Tdap,and Td Vaccines (8 - Td or Tdap) 02/17/2025 02/17/2015, 05/12/2005, 10/07/1993, Additional history exists Pap Smear 05/15/2026 05/15/2023 Cervical Cancer Screening 05/15/2028 HPV/Co-Test 05/15/2028 05/15/2023 GARDASIL-HPV IMMUNIZATION SERIES Completed 03/04/2008, 11/05/2007, 09/04/2007 [...] Encounter for supervision of normal first in second trimester- Primary Supervision of normal first documented in this encounter Care Teams Brass Pickler Relationship Specialty Start Date End Date Nadine Mata MD [address] [place], [place] [address] [phone] PCP - General Family Medicine 06/14/19 documented as of this encounter
--- OUTSIDE RECORDS SUMMARY | 2023-12-21 23:48 | External Medical Summary ---
Author Name Unknown Address Unknown Organization K01:LAB[facility]ATORY [facility] - [address] [place] [address] Laboratory Report Ordering Provider Test Date Status ANA ARREDONDO 09/28/2023 09:24:11 Final Observation Date Value Abnormality Reference (Units ) Status Ferritin 09/28/2023 09:24:11 11 Below low normal 13- 150 (ng/mL) Final Performing Location [facility] [place] [address] [place] [address]
--- OUTSIDE RECORDS SUMMARY | 2023-12-21 23:48 | External Medical Summary | Summary of Care ---
Author Name Unknown Organization [facility] Address [address] [place] [address] Phone [phone] Care Team Providers Care Cutter Operator Helper Name Role Phone Nadine Mata MD Primary Care Provider [phone] Encounter Details Date Type Department Care Team (Late st Contact Info) Description 09/29/2023 Orders Only Laboratory, [facility] 132 [facility] [place] [address] Blanca Johnson PA-C [address] [facility] [place] [address] Antepartum anemia complicating *; Abnormal glucose tolerance in mother complicating Allergies No known active allergiesdocumented as of this encounter (statuses as of 09/29/2023) Medications Medication Sig Dispensed Refills Start Date [...] Patient not taking.Reported on 05/12/2023 Flinstones Gummies [place]-3 DHA Oral Tablet Chewable Take 1 Tablet [...] as of this encounter (statuses as of 09/29/2023) Active Problems Problem Noted Date Diagnosed Date [...] as of this encounter (statuses as of 09/29/2023) Resolved Problems Problem Noted Date Diagnosed Date Resolved Date Viral warts 01/13/2009 03/25/2015 Overview: Tazorac .1% gel at bedtime ICD-10 update of inactive term Adolescent Acne 11/02/2005 03/25/2015 documented as of this encounter (statuses as of 09/29/2023) Immunizations Name Administration Dates Next Due HIB [...] money to get more. Never true 08/03/2023 [place] Depression Scale Answer Date Recorded [place] Depression Scale Total 1 09/28/2023 The thought [...] 10/13/2023 9:30 AM EDT Office Visit Gynecology/Obstetrics [facility] 132 [facility] [place] [address] Zeenat Spencer, DNP, CNM [address] [place] [place] [address] Scheduled Orders Name Type Priority Associated Diagnoses [...] care documented in this encounter Care Teams Cutter Operator Helper Relationship Specialty Start Date End Date Nadine Mata MD [address] [place] [address] PCP - General Family Medicine 06/14/19 documented as of this encounter
--- OUTSIDE RECORDS SUMMARY | 2023-12-21 23:48 | External Medical Summary | Summary of Care ---
Author Name Unknown Organization [facility] Address [address] [place] [address] Phone [phone] Care Team Providers Care Stucco Laborer Name Role Phone Nadine Mata MD Primary Care Provider [phone] Reason for Visit * Reason Comments Outpatient Testing Encounter Details Date Type Department Care Team (Late st Contact Info) Description 09/28/2023 8:30 AM EDT Laboratory Laboratory, [facility] [address] [place] [phone] [facility] [address] [place] [address] [employer] Other*[id number]; Encounter for supervision of normal first in first trimester Allergies No known active allergiesdocumented as [...] Patient not taking.Reported on 05/12/2023 Flinstones Gummies [place]-3 DHA Oral Tablet Chewable Take 1 Tablet [...] money to get more. Never true 08/03/2023 [place] Depression Scale Answer Date Recorded [place] Depression Scale Total 1 09/28/2023 The thought [...] 10/13/2023 9:30 AM EDT Office Visit Gynecology/Obstetrics [facility] [address] [address] Zeenat Spencer, ROGERIO, CNM [address] [place] [address] [place] [address] Pending Results Name Type Priority Associated Diagnoses Date /Time MYCODE SUBSEQUENT ADULT Lab Routine [employer] Other*[id number] 09/28/2023 9:24 AM EDT SYPHILIS ANTIBODY SCREEN WITH REFLEX TO RPR Lab Routine Encounter for supervision of normal first in first trimester 09/28/2023 9:24 AM EDT CBC WITH WBC DIFFERENTIAL AND ANEMIA REFLEX WORKUP Lab Routine Encounter for supervision of normal first in first trimester 09/28/2023 9:24 AM EDT 50-G GESTATIONAL GLUCOSE, 1 HOUR Lab Routine Encounter for supervision of normal first in first trimester 09/28/2023 9:24 AM EDT MYCODE SST1 Lab Routine [employer] Other*[id number] 09/28/2023 9:24 AM EDT MYCODE SST2 Lab Routine [employer] Other*[id number] 09/28/2023 9:24 AM EDT SYPHILIS ANTIBODY SCREEN Lab Routine Encounter for supervision of normal first in first trimester 09/28/2023 9:24 AM EDT ANEMIA CBC Lab Routine Encounter for supervision of normal first in first trimester 09/28/2023 9:24 AM EDT DIFFERENTIAL, AUTOMATED Lab Routine Encounter for supervision of normal first in first trimester 09/28/2023 9:24 AM EDT ANEMIA REFLEX CHEMISTRY HOLD Lab Routine Encounter for supervision of normal first in first trimester 09/28/2023 9:24 AM EDT Health Maintenance Due Date Last Done Comments Depression Screening 07/07/2019 07/06/2018 COVID-19 Vaccine ( season) 2022 Pap Smear 05/15/2026 05/15/2023 Cervical Cancer Screening 05/15/2028 HPV/Co-Test 05/15/2028 05/15/2023 DTaP,Tdap,and Td Vaccines (9 - Td or Tdap) 09/27/2033 09/28/2023, 02/17/2015, 05/12/2005, Additional history exists GARDASIL-HPV IMMUNIZATION SERIES Completed 03/04/2008, 11/05/2007, 09/04/2007 Hepatitis B Completed 11/13/2013, 09/0 07/2002, 12/26/2002, Additional history exists MENINGOCOCCAL (MENACTRA/MENVEO) [...] as of this encounter Visit Diagnoses Diagnosis [employer] Other*[id number] Encounter for supervision of normal first in first trimester Supervision of normal first documented in this encounter Care Teams Stucco Laborer Relationship Specialty Start Date End Date Nadine Mata MD [address] [place] [id number] PCP - General Family Medicine 06/14/19 documented as of this encounter
--- OUTSIDE RECORDS SUMMARY | 2023-12-21 23:48 | External Medical Summary ---
Author Name Unknown Address Unknown Organization [id number]:LABORATORY [facility] [address] [place] [address] Laboratory Report Ordering Provider Test Date Status ANA ARREDONDO 09/28/2023 09:24:11 Final Observation Date Value Abnormality Reference (Units ) Status Glucose [Moles/volume] in Serum or Plasma --1 hour post 50 g glucose PO 09/28/2023 09:24:11 170 Above high normal 70-129 (mg/dL) Final Performing Location LAB[facility]ORY [facility] [address] [place] [address]
--- OUTSIDE RECORDS SUMMARY | 2023-12-21 23:48 | External Medical Summary ---
Author Name Unknown Address Unknown Organization [id number]:LABORATORY [facility] [place] - [address] [place] [address] Laboratory Report Ordering Provider Test Date Status ANA ARREDONDO 09/28/2023 09:24:11 Final Observation Date Value Abnormality Reference (Units ) Status Iron 09/28/2023 09:24:11 92 33-151 (ug/dL) Final Iron-binding capacity 09/28/2023 09:24:11 643 Above high normal 250-425 (ug/dL) Final Transferrin Sat % 09/28/2023 09:24:11 14 Below low normal 15-55 (%) Final Performing Location LABORATORY [facility] [place] - [address] [place] [address]
--- OUTSIDE RECORDS SUMMARY | 2023-12-21 23:48 | External Medical Summary | Summary of Care ---
Author Name Unknown Organization [facility] Address [address] [place] [facility] [place] [facility] [place] [address] Phone [phone] Care Team Providers Care Office Correspondent Name Role Phone Nadine Mata MD Primary Care Provider [phone] Reason for Visit * Reason Comments Return Visit Encounter Details Date Type Department Care Team (Late st Contact Info) Description 07/17/2023 10:00 AM EDT Office Visit Gynecology/Obstetric s [facility] [address] [place] [address] Sowmya Shepard CRNP [address] [place] [address] Encounter for supervision of normal first in first trimester*; Other specified related conditions, second trimester Allergies No known active allergiesdocumented as of this encounter (statuses as of 07/17/2023) Medications Medication Sig Dispensed Refills Start Date End Date Status Methylcellulose, Laxative, (CITRUCEL) oral powder Take by mouth 2 times a day as needed for Constipation. 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 0 Active documented as of this encounter (statuses as of 07/17/2023) Active Problems Problem Noted Date Diagnosed Date Encounter for supervision of normal first in first trimester 05/15/2023 Irritable bowel syndrome with constipation 07/06 Mood disorder 03/27/2018 ADVANCE DIRECTIVE INFORMATION 05/12/2005 Overview: Not applicable (under age of 18) Estimated Date of Delivery Comme nts Yes 12/17/2023 Based on last me nstrual period of 03/12/2023 documented as of this encounter (statuses as of 07/17/2023) Resolved Problems Problem Noted Date Diagnosed Date Resolved Date Viral warts 01/13/2009 03/25/2015 Overview: Tazorac .1% gel at bedtime ICD-10 update of inactive term Adolescent Acne 11/02/2005 03/25/2015 documented as of this encounter (statuses as of 07/17/2023) Immunizations Name Administration Dates Next Due HIB PRP-OMP, 3 dose (Pedvax) 11/13/1990,08/09/18 91 HPV Vaccine, 4-Valent 03/04/2008,11/05/2007,08/2203/07/2008 Meningococcal Conjugate Vacc ine (Menactra/Menveo) 04/19/2017 PPD 03/27/2018, 8,04/19/2017,08/22 Seasonal Influenza, Quadriva lent,with Preserve, 3 yr & above, IM 02/05/2018 Seasonal Influenza, Split, I IV3, With Preserve, Inj 02/10/2017 TDAP (age 10 and older)(Boostrix) 02/17/2015 TDAP (age 11 and older)(Adacel) 05/12/2005 Varicella Vaccine (Chicken Pox) 04/19/2017 documented [...] the money to buy more. Never true 07/16/19 24 Within the past 12 months, t he food you bought just didn't last and you didn't have money to get more. Never true 07/16/2023 [place] Depression Scale Answer Date Recorded Last EPDS [...] Sign Reading Time Taken Comments Blood Pressure 106/64 07/17/2023 10:05 AM EDT Pulse - - Temperature - - Respiratory Rate - - Oxygen Saturation - - Inhaled Oxygen Concentration - - Weight 82.2 kg (181 lb 3.2 oz) 07/17/2023 10:05 AM EDT Height 170.2 cm (5' 7") 07/17/2023 10:05 AM EDT Body Mass Index 28.38 07/17/2023 10:05 AM EDT documented in this encounter Progress Notes * Sowmya Shepard CRNP - 07/17/2023 10:22 AM EDT 18w1d No concerns. ?quickening. Anatomy u/s in 2-4 weeks. MSAFP today. CARISSA Eason documented in this encounter Nursing Notes * Wendy Morton RN - 07/17/2023 10:07 AM EDT Patient her for NADINE visit 18w1d No concerns Anatomy US pended documented in this encounter Plan of Treatment Upcoming Encounters Date Type Department Care Team (Late st Contact Info) Description 07/17/2023 11:20 AM EDT Laboratory Laboratory, [facility] [address] [place] [phone] [facility] [address] [place] [address] Arrived 08/04/2023 8:30 AM EDT Imaging Radiology [facility] 2nd Floor, [place] [address] [place] [address] 08/04/2023 11:45 AM EDT Office Visit Gynecology/Obstetrics [facility] [address] [place] [address] Laura Goldman PA-C [address] [place] [address] Pending Results Name Type Priority Associated Diagnoses Date /Time MATERNAL SERUM AFP Lab Routine Encounter for supervision of normal first in first trimester 07/17/2023 10:29 AM EDT Scheduled Orders Name Type Priority Associated Diagnoses Orde r Schedule US PREG SINGLE/1ST GEST, 14 WEEKS OR LATER Medical Imaging Routine Encounter for supervision of normal first in first trimester Other specified related conditions, second trimester Expected: 07/31/2023 (Approximate), Expires: 08/16/2024 Health Maintenance Due Date Last Done Comments Depression Screening 07/07/2019 07/06/2018 COVID-19 Vaccine (2022- season) 2022 DTaP,Tdap,and Td Vaccines (8 - [...] first trimester- Primary Supervision of normal first Other specified related conditions, second trimester documented in this encounter Care Teams Office Correspondent Relationship Specialty Start Date End Date Nadine Mata MD [address] [place] [id number] PCP - General Family Medicine 06/14/19 documented as of this encounter
--- OUTSIDE RECORDS SUMMARY | 2023-12-21 23:48 | External Medical Summary | Summary of Care ---
Author Name Unknown Organization [facility] Address [address] [place] [address] Phone [phone] Care Team Providers Care Cargo Services Coordinator Name Role Phone Nadine Mata MD Primary Care Provider [phone] Reason for Visit * Reason Onset Date Comments Test Results 04/26/2023 Unexpected or In determinate Result Test Results Imaging Study 04/26/[address] Kincaid Encounter Details Date Type Department Care Team (Late st Contact Info) Description 04/26/2023 Telephone Laboratory, [facility] [address] [place] [address] Scooby Kincaid MD [address] [facility] [place] [address] Test Results (Unexpected or Indeterminate ... Allergies No known active allergiesdocumented as of this encounter (statuses as of 07/07/2023) Medications Medication Sig Dispensed Refills Start Date End Date Status Methylcellulose, Laxative, (CITRUCEL) oral powder Take by mouth 2 times a day as needed for Constipation. 0 Active ketoconazole 2 % shampooIndications:Pit yrosporum folliculitis Apply topically to affected area every 3 days. Apply to chest and back 120 mL 2 03/23/2018 Active Tretinoin 0.1 % creamIndications:Acne vulgaris Apply topically to affected area at bedtime. Apply to face at bedtime 45 g 3 03/23/2018 Active fluconazole (DIFLUCAN) 200 MG TabletIndications:Sebo rrhea 1 tablet weekly for 6 weeks 6 Tab 0 08/23/2018 Active spironolactone (ALDACTONE) 50 MG TabletIndications:Adul t acne 1 tablet daily w/food 90 Tab 1 08/23/2018 Active FLUoxetine (PROZAC) 10 MG Capsule Take 1 Cap by mouth daily. 30 Cap 12 09/06/2018 Active Benzoyl Peroxide-Erythromycin 5-3 % gelIndications:Acne vulgaris apply once a day all over face for acne 45.2 g 11 04/25/2019 Active predniSONE (DELTASONE) 10 MG TabletIndications:Urti caria Take 5 tabs for 2 days, 4 tabs for 2 days, 3 tabs for 2 days, 2 tabs for 2 days 1 tab for 2 days 30 Tab 0 06/14/2019 Active documented as of this encounter (statuses as of 07/07/2023) Active Problems Problem Noted Date Diagnosed Date Irritable bowel syndrome with constipation 07/06 Mood disorder 03/27/2018 ADVANCE DIRECTIVE INFORMATION 05/12/2005 Overview: Not applicable (under age of 18) documented as of this encounter (statuses as of 07/07/2023) Resolved Problems Problem Noted Date Diagnosed Date Resolved Date Viral warts 01/13/2009 03/25/2015 Overview: Tazorac .1% gel at bedtime ICD-10 update of inactive term Adolescent Acne 11/02/2005 03/25/2015 documented as of this encounter (statuses as of 07/07/2023) Immunizations Name Administration Dates Next Due DTaP [...] Answer Date Recorded PHQ-2 Score -1 07/06/2018 Sex and Gender Information Value Date Recorded Sex Assigned at Female 05/15/2023 1:11 PM EST Gender Identity Female 05/15/2023 1:11 PM EST Sexual Orientation Straight 05/15/2023 1: 11 PM EST Job Start Date Occupation Industry Not on file Not on file Not on file documented as of this encounter Miscellaneous Notes * Telephone Encounter - Janki Pressley MED ASSIST - 04/27/2023 11:54 AM EST Appt scheduled, pt aware * Telephone Encounter - Wendy Morton RN - 04/27/2023 10:54 AM EST Reviewed US report with Dr. Kincaid. He would like patient to be scheduled for a repeat ultrasound in10-14 days for follow up due to low HR, patient made aware and agreeable. Patient aware to call with any questions. Advised scheduling will reach out to help get this scheduled. * Telephone Encounter - Pennie Johnson OSA - 04/27/2023 4:32 AM EST Hello- The radiologist discovered an unexpected or indeterminate finding on Jo Ann Johnson ([id number]) and asks that you review the following report. Study Type: US PELVIS TRANS-VAGINAL OB Date of Study: 04/26/2023 IMPRESSION IMPRESSION Single, viable intrauterine gestation with a sonographically assessed gestational age of 5 weeks 6 days. Borderline low heart rate which is likely secondary to the early gestational age. Recommend a short interval follow-up ultrasound in 10-14 days to ensure viability. Please respond to this encounter to acknowledge receipt of this message and take responsibility to ensure this report is reviewed. Thank you, HOMA Resendiz Client Service [facility] * Telephone Encounter - Sanam Mittal LPN - 04/26/2023 10:44 AM EST Please clarify * Telephone Encounter - Elena Avila OSA - 04/26/2023 10:32 AM EST Hello- The radiologist discovered an unexpected or indeterminate finding on Jo Ann Johnson ([id number]) and asks that you review the following report. Good morning, I had a lot of internet issues this morning, I am in RAD with you today, where would you like me to begin Study Type:US PELVIS TRANS-VAGINAL OB Date of Study: 04/26/2023 Please respond to this encounter to acknowledge receipt of this message and take responsibility to ensure this report is reviewed. Thank you, HOMA Krishna Client Service [facility] documented in this encounter Plan of Treatment Upcoming Encounters Date Type Department Care Team (Late st Contact Info) Description 07/17/2023 10:00 AM EDT Office Visit Gynecology/Obstetrics [facility] [address] [place] [address] Sowmya Shepard CRNP [address] [place] [address] Health Maintenance Due Date Last Done Comments Depression Screening 07/07/2019 07/06/2018 COVID-19 Vaccine (2022-24 season) 2022 DTaP,Tdap,and Td Vaccines (8 - [...] filedocumented as of this encounter Care Teams Cargo Services Coordinator Relationship Specialty Start Date End Date Nadine Mata MD [address] [place] [address], [place] [phone] PCP - General Family Medicine 06/14/19 documented as of this encounter
--- OUTSIDE RECORDS SUMMARY | 2023-12-21 23:48 | External Medical Summary | Summary of Care ---
Author Name Unknown Organization [facility] Address [address] [facility] [address] Phone [phone] Care Team Providers Care Math And Sciences Department Chair Name Role Phone Nadine Mata MD Primary Care Provider [phone] Reason for Visit * Reason Onset Date Comments Forms Request 09/28/2023 Encounter Details Date Type Department Care Team (Late st Contact Info) Description 09/28/2023 Telephone Gynecology/Obstetrics [facility] [address] [place] [id number] Sowmya Shepard CRNP [address] [facility] [place] [address] Forms Request Allergies No known active allergiesdocumented as of this encounter (statuses as of 10/03/2023) Medications Medication Sig Dispensed Refills Start Date [...] Patient not taking.Reported on 05/12/2023 Flinstones Gummies [place]-3 DHA Oral Tablet Chewable Take 1 Tablet by mouth in the morning. Active documented as of this encounter (statuses as of 10/03/2023) Active Problems Problem Noted Date Diagnosed Date Antepartum anemia complicating 024 Overview: Iron started 67 once daily. Repeat CBC around 7/5. Order [...] as of this encounter (statuses as of 10/03/2023) Resolved Problems Problem Noted Date Diagnosed Date Resolved Date Viral warts 01/13/2009 03/25/2015 Overview: Tazorac .1% gel at bedtime ICD-10 update of inactive term Adolescent Acne 11/02/2005 03/25/2015 documented as of this encounter (statuses as of 10/03/2023) Immunizations Name Administration Dates Next Due DTaP [...] money to get more. Never true 08/03/2023 [place] Depression Scale Answer Date Recorded [place] Depression Scale Total 1 09/28/2023 The thought [...] encounter Miscellaneous Notes * Telephone Encounter - Jocelyn Cifuentes OSA - 10/03/2023 3:50 PM EDT Forms placed on Sowmya's desk for signature. 2 forms. * Telephone Encounter - Wendy Morton RN - 09/28/2023 2:16 PM EDT Patient brought FMLA paperwork to appointment today. Placed on Jocelyn's desk for completion. Advisedpatient will fax and notify her once completed. documented in this encounter Plan of Treatment Upcoming Encounters Date Type Department Care Team (Late st Contact Info) Description 10/12/2023 7:00 AM EDT Laboratory Laboratory, [facility] [address] [place] [phone] [facility] [address] [place] [address] 10/13/2023 9:30 AM EDT Office Visit Gynecology/Obstetrics [facility] [address] [place] [address] Zeenat Spencer, ROGERIO, CNM [address] [place], [place] [address] [address] Health Maintenance Due Date Last Done Comments Depression Screening 07/07/2019 07/06/2018 COVID-19 Vaccine (24 season) 2022 Pap Smear 05/15/2026 05/15/2023 Cervical [...] filedocumented as of this encounter Care Teams Math And Sciences Department Chair Relationship Specialty Start Date End Date Nadine Mata MD [address] [place] [address] PCP - General Family Medicine 06/14/19 documented as of this encounter
--- OUTSIDE RECORDS SUMMARY | 2023-12-21 23:48 | External Medical Summary | Summary of Care ---
Author Name Unknown Organization [facility] Address [address] [place] [address] Phone [phone] Care Team Providers Care Cognos Bi Developer Name Role Phone Nadine Mata MD Primary Care Provider [phone] Reason for Visit * Reason Comments Outpatient Testing Encounter Details Date Type Department Care Team (Late st Contact Info) Description 07/17/2023 11:20 AM EDT Laboratory Laboratory, [facility] [address] [place] [phone] [facility] [address] [place] [address] Arrived Allergies No known active allergiesdocumented as of [...] Patient not taking.Reported on 05/12/2023 Flinstones Gummies [place]-3 DHA Oral Tablet Chewable Take 1 Tablet [...] money to get more. Never true 07/16/2023 [place] Depression Scale Answer Date Recorded Last EPDS [...] Team (Late st Contact Info) Description 08/04/2023 8:30 AM EDT Imaging Radiology [facility] 2nd [facility] [address] [place] [address] 08/04/2023 11:45 AM EDT Office Visit Gynecology/Obstetrics [facility] [address] [place] [address] Laura Goldman PA-C [address] [place] [address] Health Maintenance Due Date Last Done Comments [...] filedocumented as of this encounter Care Teams Cognos Bi Developer Relationship Specialty Start Date End Date Nadine Mata MD [address] [place], [place] [address] [address] PCP - General Family Medicine 06/14/19 documented as of this encounter
--- OUTSIDE RECORDS SUMMARY | 2023-12-21 23:48 | External Medical Summary ---
Author Name Unknown Address Unknown Organization K01:LABORATORY [facility] [place] - [facility] [place] [address] Laboratory Report Ordering Provider Test Date Status ANA ARREDONDO 09/28/2023 09:24:11 Final Observation Date Value Abnormality Reference (Units ) Status Retic, % (auto) 09/28/2023 09:24:11 1.75 0.80-1.90 (%) Final Reticulocytes, Absolute 09/28/2023 09:24:11 68.8 31.3-100.1 (K/uL) Final Reticulocyte fraction, immature 09/28/2023 09:24:11 24.4 Above high normal 2.5-20.6 (%) Final Reticulocyte HGB 09/28/2023 09:24:11 32.3 29.7-37.4 (pg) Final Performing Location LABORATORY [facility] [place] - [address] [place] [address]
--- OUTSIDE RECORDS SUMMARY | 2023-12-21 23:48 | External Medical Summary ---
Author Name Unknown Address Unknown Organization K01:LABORATORY [facility] [place] - [address] [place] [address] Laboratory Report Ordering Provider Test Date Status ANA ARREDONDO 09/28/2023 09:24:11 Final Observation Date Value Abnormality Reference (Units ) Status Treponema pallidum Ab [Presence] in Serum by Immunoassay 09/28/2023 09:24:11 Nonreactive Nonreactive Final No serologic evidence of syp hilis. No additional testing clinicially indicated at this time. Consider repeat testing in 2-4 weeks if acute or primary syphilis is suspected. Performing Location LABORATORY [facility] [place] - [address] [place] [address]
--- OUTSIDE RECORDS SUMMARY | 2023-12-21 23:48 | External Medical Summary ---
Author Name Unknown Address Unknown Organization K01:LABORATORY [facility] [place] - [address] [place] [address] Laboratory Report Ordering Provider Test Date Status ANA ARREDONDO 09/28/2023 09:24:11 Final Observation Date Value Abnormality Reference (Units ) Status WBC, Total 09/28/2023 09:24:11 12.47 Above high normal 4 .00-10.80 (K/uL) Final RBC 09/28/2023 09:24:11 3.93 3.85-5.15 (M/uL) Final Hemoglobin 09/28/2023 09:24:11 11.6 Below low normal 12 .0-15.3 (g/dL) Final Anemia reflex testing trigge rs on a HGB < 12.0 for Females and HGB < 13.0 for Males in accordance with the WHO Anemia Guidelines
Anemia reflex testing triggers on a HGB < 12.0 for Females and HGB < 13.0 for Males in accordance with the WHO Anemia Guidelines HCT 09/28/2023 09:24:11 35.5 Below low normal 36. 0-45.2 (%) Final MCV 09/28/2023 09:24:11 90.3 81.5-97.5 (fL) Final MCH 09/28/2023 09:24:11 29.5 27.0-34.0 (pg) Final MCHC 09/28/2023 09:24:11 32.7 32.0-36.0 (g/dL) Final RDW 09/28/2023 09:24:11 12.3 11.5-15.5 (%) Final Platelets 09/28/2023 09:24:11 236 140-400 (K /uL) Final MPV 09/28/2023 09:24:11 11.4 6.6-11.1 ( fL) Final Nucleated erythrocytes/100 leukocytes [Ratio] in Blood by Automated count 09/28/2023 09:24:11 0 <=0 (/100 WBCs) Final Performing Location LABORATORY [facility] [place] - [address] [facility] [id number]
--- OUTSIDE RECORDS SUMMARY | 2023-12-21 23:48 | External Medical Summary | Summary of Care ---
Author Name Unknown Organization [facility] Address [address] [facility] [place] [address] Phone [phone] Care Team Providers Care Senior Clinician Name Role Phone Nadine Mata MD Primary Care Provider [phone] Encounter Details Date Type Department Care Team (Late st Contact Info) Description 08/04/2023 11:45 AM EDT Office Visit Gynecology/Obstetric s Berna Mchugh [address] [place] [address] Laura Goldman PA-C [address] [place] [address] Encounter for supervision of normal first in [...] Patient not taking.Reported on 05/12/2023 Flinstones Gummies [place]-3 DHA Oral Tablet Chewable Take 1 Tablet [...] money to get more. Never true 08/03/2023 [place] Depression Scale Answer Date Recorded Last EPDS [...] 08/31/2023 9:15 AM EDT Office Visit Gynecology/Obstetrics [facility] [address] [facility] [place] [address] Blanca Johnson PA-C [address] [place] [address] Health Maintenance Due Date Last Done Comments [...] first documented in this encounter Care Teams Senior Clinician Relationship Specialty Start Date End Date Nadine Mata MD [address] [place], [place] [address] [phone] PCP - General Family Medicine 06/14/19 documented as of this encounter
--- OUTSIDE RECORDS SUMMARY | 2023-12-21 23:48 | External Medical Summary ---
Author Name Unknown Address Unknown Organization K01:LABORATORY [facility] [place] [address] [place] [address] Laboratory Report Ordering Provider Test Date Status ANA ARREDONDO 09/28/2023 09:24:11 Final Observation Date Value Abnormality Reference (Units ) Status Vitamin B12 09/28/2023 09:24:11 [phone] (pg/mL) Final Performing Location LABORATORY [facility] [place] [address] [place] [address]
--- OUTSIDE RECORDS SUMMARY | 2023-12-21 23:48 | External Medical Summary ---
Author Name Unknown Address Unknown Organization : Laboratory Report Ordering Provider Test Date Status BARBRA COOPER 07/17/2023 10:29:13 Final Observation Date Value Abnormality Reference (Units ) Status INTERPRETATION 07/17/2023 10:29:13 SEE BELOW Final Screen negative for open NTD . RISK FOR ONTD 07/17/2023 10:29:13 <1:5000 Final CALC'D GESTATIONAL AGE 0307/17/2023 10:29:13 18.1 Final AFP, SERUM 07/17/2023 10:29:13 30.5 (ng/mL) Final AFP MOM 07/17/2023 10:29:13 0.76 Final Reference Range:
NTD <2 .50
IDD <1.90
TWINS <4.00
TWINS IDD <3.50
TRIPLETS <4.50
The AFP test result indicates that this patient is
screen negative for open NTD. It should be noted
that normal test results can never guarantee the
of a normal baby and that 2-3% of newborns
have some type of physical or mental defect, many
of which are undetectable through any known
diagnostic technique.
This is a screening test, not a diagnostic test.
This risk assessment report is based in part on
demographic data provided by the ordering
physician. Please notify the laboratory promptly
if any data are incorrect. For assistance with
recalculations, please call your local [facility] laboratory. For assistance with
interpretation of these results, please contact
your Local [facility] genetic counselor or
call [phone] ([phone]).
Interpretive Cutoffs
Screen Positive for Open NTD:
> or = 2.50 adjusted MOM
> or = 1.90 adjusted MOM for insulin- dependent diabetics
> or = 4.00 adjusted MOM for twins
> or = 3.50 adjusted MOM for twins insulin-dependent diabetics
> or = 4.50 adjusted MOM for triplets
For additional information, please refer to
[email or web address].Medudem/faq/[email or web address]
(This link is being provided for
informational/educational purposes only.) DATE OF 07/17/2023 10:29:13 1990 Final COLLECTION DATE 07/17/2023 10:29:13 07/17/2023 Final MATERNAL WEIGHT 07/17/2023 10:29:13 180 (lbs ) Final EST'D DATE OF DELIVERY 07/17/2023 10:29:13 12/17/2023 Final JESSICA DETERMINED BY 07/17/2023 10:29:13 LMP Final MOTHER'S ETHNIC ORIGIN 07/17/2023 10:29:13 WHITE Final NUMBER OF FETUSES 07/17/2023 10:29:13 1 Final INSULIN DEPEND DIABETIC 07/17/2023 10:29:13 NO Final REPEAT SPECIMEN 07/17/2023 10:29:13 NO Final HX OF NEURAL TUBE DEFECTS 07/17/2023 10:29:13 NO Final PREV DOWN SYND 07/17/2023 10:29:13 NO Final DONOR EGG 07/17/2023 10:29:13 NO Final DONOR AGE: EGG RETRIEVAL 07/17/2023 10:29:13 NOT GIVEN Final Test performed by [facility]
[address] [facility],
[place] [address]

Mental Health Counselor: Stefani Martinez MD,PHD,TOBY
Test Reported by Brittaney Decker,
[facility],
[address] [place], [place]
Latrell Menon M.D., Ph.D., Director of Laboratories
, [facility] [id number] Performing Location
--- OUTSIDE RECORDS SUMMARY | 2023-12-21 23:48 | External Medical Summary | Summary of Care ---
Author Name Unknown Organization [facility] Address [address] [facility] [address] Phone [phone] Care Team Providers Care Manager Mall Name Role Phone Nadine Mata MD Primary Care Provider [phone] Reason for Visit * Reason Comments Return Visit Encounter Details Date Type Department Care Team (Late st Contact Info) Description 08/31/2023 9:15 AM EDT Office Visit Gynecology/Obstetric [facility] [address] [facility] [place] [address] Blanca Johnson PA-C [address] [place] [address] Encounter for supervision of normal first in first trimester* Allergies No known active allergiesdocumented as of this encounter (statuses as of 08/31/2023) Medications Medication Sig Dispensed Refills Start Date [...] Patient not taking.Reported on 05/12/2023 Flinstones Gummies [place]-3 DHA Oral Tablet Chewable Take 1 Tablet by mouth in the morning. 0 Active documented as of this encounter (statuses as of 08/31/2023) Active Problems Problem Noted Date Diagnosed Date Encounter for supervision of normal first in first trimester 05/15/2023 Irritable bowel syndrome with constipation 07/06 Mood disorder 03/27/2018 ADVANCE DIRECTIVE INFORMATION 05/12/2005 Overview: Not applicable (under age of 18) Estimated Date of Delivery Comme nts Yes 12/17/2023 Based on last me nstrual period of 03/12/2023 documented as of this encounter (statuses as of 08/31/2023) Resolved Problems Problem Noted Date Diagnosed Date Resolved Date Viral warts 01/13/2009 03/25/2015 Overview: Tazorac .1% gel at bedtime ICD-10 update of inactive term Adolescent Acne 11/02/2005 03/25/2015 documented as of this encounter (statuses as of 08/31/2023) Immunizations Name Administration Dates Next Due HIB [...] money to get more. Never true 08/03/2023 [place] Depression Scale Answer Date Recorded Last EPDS [...] No concerns 28 week labs pended + FM Wendy Morton RN documented in this encounter Plan of Treatment Upcoming Encounters Date Type Department Care Team (Late st Contact Info) Description 09/28/2023 8:30 AM EDT Laboratory Laboratory, [facility] [address] [place] [phone] MchughSarah magdaleno [facility] [address] [place] [address] 09/28/2023 9:00 AM EDT Office Visit Gynecology/Obstetrics [facility] [address] [place] [address] Sowmya Shepard CRNP [address] [place] [address] Scheduled Orders Name Type Priority Associated Diagnoses Orde r Schedule SYPHILIS ANTIBODY SCREEN WITH REFLEX TO RPR Lab Routine Encounter for supervision of normal first in first trimester Expected: 08/31/2023, Expires: 08/30/2024 CBC WITH WBC DIFFERENTIAL AND ANEMIA REFLEX WORKUP Lab Routine Encounter for supervision of normal first in first trimester Expected: 08/31/2023, Expires: 08/30/2024 50-G GESTATIONAL GLUCOSE, 1 HOUR Lab Routine Encounter for supervision of normal first in first trimester Expected: 08/31/2023, Expires: 08/30/2024 Health Maintenance Due Date Last Done Comments Depression Screening 07/07/2019 07/06/2018 COVID-19 Vaccine ( season) 2022 DTaP,Tdap,and Td Vaccines (8 - [...] first documented in this encounter Care Teams Manager Mall Relationship Specialty Start Date End Date Nadine Mata MD [address] [place] [phone] PCP - General Family Medicine 06/14/19 documented as of this encounter
--- OUTSIDE RECORDS SUMMARY | 2023-12-21 23:48 | External Medical Summary ---
Author Name Unknown Address Unknown Organization K01:LABORATORY [facility] [place] - [address] [place] [address] Laboratory Report Ordering Provider Test Date Status ANA ARREDONDO 09/28/2023 09:24:11 Final Observation Date Value Abnormality Reference (Units ) Status TSH 09/28/2023 09:24:11 0.93 0.27-4.20 (uIU/mL) Final Performing Location LABORATORY [facility] - [address] [place] [address]
--- OUTSIDE RECORDS SUMMARY | 2023-12-21 23:48 | External Medical Summary ---
Author Name Unknown Address Unknown Organization K01:LABORATORY [facility] - [address] [place] [address] Laboratory Report Ordering Provider Test Date Status JENARO STEWART 09/28/2023 09:24:11 Final Observation Date Value Abnormality Reference (Units ) Status MYCODE SPECIMEN-SST 09/28/2023 09:24:11 Freezing of extracted DNA, whole blood and/or serum. Final Performing Location LABORATORY [facility] - [address] [place] [address]
--- OUTSIDE RECORDS SUMMARY | 2023-12-21 23:48 | External Medical Summary | Summary of Care ---
Author Name Unknown Organization [facility] Address [address] [place] [address] Phone [phone] Care Team Providers Care Steam Press Tender Name Role Phone Nadine Mata MD Primary Care Provider [phone] Reason for Visit * Reason Comments Return Visit Encounter Details Date Type Department Care Team (Late st Contact Info) Description 10/13/2023 9:30 AM EDT Office Visit Gynecology/[facility]st[facility] s [facility] [address] Zeenat Spencer, DNP, CNM [address] [facility] [place] [address] Encounter for supervision of normal first in first trimester* Allergies No known active allergiesdocumented as of this encounter (statuses as of 10/13/2023) Medications Medication Sig Dispensed Refills Start Date End Date Status [place]-3 DHA Oral Tablet Chewable Take 1 Tablet by mouth in the morning. Active Ondansetron 4 MG Oral Tablet Disintegrating (Zofran)Indication s:Nausea and vomiting during Place 1 Tablet on tongue every 8 hours as needed for Nausea. dissolve on tongue. 90 Tablet 4 10/13/19 24 Active Iron-Vitamin C 65-125 MG Oral Tablet (Vitron C)Indications:Ante anemia complicating Take 1 Tablet by mouth in the morning. 30 Tablet 5 4 Active Docusate Sodium 100 MG Oral Capsule (Colace)Indication s:Antepartum anemia complicating Take 1 tablet by mouth twice daily as needed for constipation. 60 Capsule 5 4 Active ketoconazole 2 % 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 Apply to chest and back 120 mL 2 8 10/13/19 24 Discontinued(Med ication List Clean Up) Tretinoin 0.1 % creamIndications:A cne vulgaris Apply topically to affected area at bedtime. Apply to face at bedtime 45 g 3 8 10/13/19 24 Discontinued(Med ication List Clean Up) fluconazole (DIFLUCAN) 200 MG TabletIndications: Seborrhea 1 tablet weekly for 6 weeks 6 Tab 9 10/13/19 24 Discontinued(Med ication List Clean Up) FLUoxetine (PROZAC) 10 MG Capsule Take 1 Cap by mouth daily. 30 Cap 12 9 10/13/19 24 Discontinued(Med ication List Clean Up) Benzoyl Peroxide-Erythromy inna 5-3 % gelIndications:Acn e vulgaris apply once a day all over face for acne 45.2 g 11 0 10/13/19 24 Discontinued(Med ication List Clean Up) predniSONE (DELTASONE) 10 MG TabletIndications: Urticaria Take 5 tabs for 2 days, 4 tabs for 2 days, 3 tabs for 2 days, 2 tabs for 2 days 1 tab for 2 days 30 Tab 0 10/13/19 24 Discontinued documented as of this encounter (statuses as of 10/13/2023) Active Problems Problem Noted Date Diagnosed Date Antepartum anemia complicating 024 Overview: Iron started 6/7 once daily. Repeat CBC around 75. Order is in. Abnormal glucose tolerance in [...] money to get more. Never true 08/03/2023 [place] Depression Scale Answer Date Recorded [place] Depression Scale Total 1 09/28/2023 The thought [...] Sign Reading Time Taken Comments Blood Pressure 108/72 10/13/2023 9:43 AM EDT Pulse - - Temperature - - Respiratory Rate - - Oxygen Saturation - - Inhaled Oxygen Concentration - - Weight 88.7 kg (195 lb 9.6 oz) 10/13/2023 9:43 A M EDT Height - - Body Mass Index 30.64 09/28/2023 8:44 AM EDT documented in this encounter Progress Notes * Zeenat Spencer DNP, CNM - 10/13/2023 10:16 AM EDT [place] Johnson is a 33 year old female here for her routine OB appointment at 30w5d Her Estimated Date of Delivery: 12/17/23 REVIEW OF SYSTEMS: She affirms movement. Denies vaginal bleeding, LOF, contractions, N/V, headaches. 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 Encouraged compression stockings. Encouraged CBE and classes. PHYSICAL EXAM: Filed Vitals: 10/13/23 0943 BP: 108/72 Weight: 88.7 kg (195 lb 9.6 oz) ASSESSMENT/PLAN: (Z34.01) Encounter for supervision of normal first in first trimester (primary encounter diagnosis) Plan: - Needs to schedule 3 hour glucose, pt plans to next week - Taking Vitron C - Condoms and natural awareness method for pp contraception. - labor precautions and kick counts reviewed - RTO in 2 weeks Zeenat Spencer DNP, CNM * Janki Pressley MED ASSIST - 10/13/2023 9:43 AM EDT 30w5d Denies vaginal bleeding/rom + movements No new concerns documented in this encounter Plan of Treatment Upcoming Encounters Date Type Department Care Team (Late st Contact Info) Description 10/30/2023 7:30 AM EDT Office Visit Gynecology/Obstetrics Berna Mchugh [address] [place] [address] Laura Goldman PA-C [address] [place] [address] Nurse [facility] [address] [place] [address] Health Maintenance Due Date Last Done Comments [...] first documented in this encounter Care Teams Steam Press Tender Relationship Specialty Start Date End Date Nadine Mata MD [address] [place] [address] [place] [address] PCP - General Family Medicine 06/14/19 documented as of this encounter
--- NOTE | 2023-12-22 06:42 | Labor Progress Brief Note ---
Date of Service December 22, 2023 Assessment & Plan Admission and Anticipated Discharge Date Admission Date: December 21, 2023 Physical Exam Genitourinary: Manual OB Exam: + cervical dilation 2 cm, + cervical effacement 80% and + station -2 OB Exam Monitor Tracing: + external FHT monitor used, + external uterine monitor used, + category I and + normal FHT variability Cervidil pulled out intact Will start Oxytocin Results & Data Vital Signs (Past 12 Hours) Vital Signs Temp Pulse Resp BP 12/22/23 04:11 36.7 C 85 18 118/61 12/21/23 23:12 18 12/21/23 23:12 36.4 C L 18 12/21/23 23:12 83 12/21/23 23:12 129/84 12/21/23 19:00 20 12/21/23 19:00 20 12/21/23 18:57 18 12/21/23 18:57 36.6 C 18 12/21/23 18:57 93 H 12/21/23 18:57 133/81
[2023-12-22] MEDS: PENICILLIN GK 3 MU in DEXTROSE 5% 100 ML IV PRN (09:22)
[2023-12-22] MEDS: LACTATED RINGER'S 1,000 ML IV PRN (09:22)
--- NOTE | 2023-12-22 09:34 | Obstetrical Progress Note ---
Date of Service December 22, 2023 Assessment & Plan Admission and Anticipated Discharge Date Admission Date: December 21, 2023 Subjective Patient seen and examined. She is a 33-year-old G1, P0 at 40 weeks and 5 days of gestation who was admitted last night for induction of labor for gestational diabetes, GDMA1 and postdates. She has received Cervidil overnight and it was removed in the morning by Dr. Lima. She has been celso regularly every 2 to 3 minutes and they are getting more painful. She is requesting epidural for pain. GBS is positive. Her has been otherwise uncomplicated. her fingersticks have been within normal limits has not cried regarding medication for diabetes. Vaginal exam, patient is very uncomfortable during exam, cervix is 4 cm dilated, 80% effaced, bulging bag, vertex, heart rate category 1, [place] shows contractions every 2 to 3 minutes, Plan to start IV penicillin, epidural for pain, continue to monitor. All questions were answered. Results & Data Vital Signs (Past 12 Hours) Vital Signs Temp Pulse Resp BP 12/22/23 07:00 86 126/78 12/22/23 06:59 20 12/22/23 06:59 36.8 C 20 12/22/23 04:11 36.7 C 85 18 118/61 12/21/23 23:12 18 12/21/23 23:12 36.4 C L 18 12/21/23 23:12 83 12/21/23 23:12 129/84
[2023-12-22] MEDS: PENICILLIN GK 6 MU in DEXTROSE 5% 250 ML IV STA (09:47)
--- NOTE | 2023-12-22 10:00 | Anesthesiology Consultation ---
Date of Service December 22, 2023 Assessment & Plan (1) Encounter for pre-operative examination: Chart Review Chart Review: Acceptable Risk for Labor Epidural History Height/Weight Height: 5 ft 7 in Weight: 94.347 kg Allergies Allergy/AdvReac Type Severity Reaction Status Date / Time No Known Allergies Allergy Verified 10/13/16 09:11 Medications Home Medications Medication Instructions Recorded Confirmed Last Taken ferrous sulfate 325 mg (65 mg 325 mg PO DAILY 12/21/23 12/21/23 12/21/23 iron) tablet vit no.95-ferrous 1 tab PO DAILY 12/21/23 12/21/23 12/21/23 fumarate 28 mg-folic acid 800 mcg tablet () Active Medications Generic Name Dose Route Start Last Admin Trade Name Freq PRN Reason Stop Dose Admin Lactated Ringer's 1,000 mls @ 125 mls/hr 12/21/23 17:02 12/22/23 09:43 Lr IV 12/23/23 17:01 999 mls/hr .Q8H PRN Infusion L&D Protocol Protocol Past Medical History Medical History Anemia Gestational diabetes Mood disorder Social History Smoking Status: Never smoker Hx Alcohol Use: No Hx Substance Use: No substance use type: does not use Physical Exam Vital Signs Last Vital Signs Temp 36.8 C 12/22/23 06:59 Pulse 100 H 12/22/23 09:57 Resp 20 12/22/23 06:59 BP 126/78 12/22/23 07:00 Pulse Ox 98 12/22/23 09:57 Testing Laboratory Results 12/21/23 17:37
[2023-12-22] MEDS: fentaNYL citrate PF 100 MCG/2 ML VIAL ONE ×2 (10:21→16:13)
[2023-12-22] MEDS: fentANYL 2 MCG/ML BUPIVacaine 0.125%-NSS 100ML BAG ONE ×2 (10:25→16:43)
[2023-12-22] MEDS ORDERED: NALOXONE HCL 0.4 MG/1 ML VIAL/CARP IV PRN (10:26)
[2023-12-22] MEDS ORDERED: LIDOCAINE 2% MPF LOCAL 5 ML VIAL EPI PRN (10:26)
[2023-12-22] MEDS ORDERED: ROPIVACAINE 0.5% PF 5 MG/ML 20 ML VIAL EPI PRN (10:26)
[2023-12-22] MEDS ORDERED: fentANYL 2 MCG/ML BUPIVacaine 0.125%-NSS 100ML BAG EPI PRN (10:26)
[2023-12-22] MEDS ORDERED: BUPIVACAINE 0.25% PF 30 ML VIAL EPI PRN (10:26)
[2023-12-22] MEDS ORDERED: NALOXONE HCL 1 MG in SODIUM CHLORIDE 0.9% 1,000 ML IV PRN (10:26)
[2023-12-22] MEDS ORDERED: ePHEDrine sulfate 50 MG/ML AMP IV PRN (10:26)
[2023-12-22] MEDS ORDERED: SODIUM CHLORIDE 0.9% PF INJ 10 ML VIAL EPI PRN (10:26)
[2023-12-22] MEDS: BUPIVACAINE 0.25% PF 30 ML VIAL ONE ×2 (10:29→16:12)
[2023-12-22] MEDS: LIDOCAINE 2%/EPINEPHRINE 1:200,000 20 ML PF ONE ×3 (10:29→16:12)
[2023-12-22] MEDS: SODIUM CHLORIDE 0.9% PF INJ 10 ML VIAL ONE ×2 (10:31→16:13)
[2023-12-22] MEDS: SODIUM CHLORIDE 0.9% PF INJ 10 ML VIAL EPI STA (10:43)
[2023-12-22] MEDS: BUPIVACAINE 0.25% PF 30 ML VIAL EPI STA (10:43)
[2023-12-22] MEDS: LIDOCAINE 2%/EPINEPHRINE 1:200,000 20 ML PF EPI STA (10:43)
[2023-12-22] MEDS: fentaNYL citrate PF 100 MCG/2 ML VIAL EPI STA (10:43)
[2023-12-22] MEDS: OXYTOCIN 30 UNITS/NSS 30 UNITS/500 ML BAG IV PRN ×2 (11:41→21:46)
[2023-12-22] MEDS: ePHEDrine sulfate 50 MG/ML AMP ONE ×2 (11:55→16:13)
--- NOTE | 2023-12-22 13:18 | Anesthesia Procedure Note ---
Date of Service December 22, 2023 Anesthesia Epidural Re-Dose Vital Signs Temp Pulse Resp BP Pulse Ox 36.6 C 88 18 137/73 94 12/22/23 11:01 12/22/23 13:14 12/22/23 12:02 12/22/23 13:02 12/22/23 13:14 Notes Pain Intensity: 9 Dilatation (cm): 5.0 Effacement (%): 90 Called by nursing to evaluate epidural as the patient is having increased pain. The epidural was re-dosed with the following medications (all medications via epidural route) after negative aspiration of the epidural catheter for CSF/HEME 1.2% lidocaine and 0.2% ropivacaine 7ml After Epidural Re-Dose Mental Status: alert / awake / arousable Pain: improving with treatment Airway Patency, RR, SpO2: stable & adequate BP & HR: stable & adequate
[2023-12-22] MEDS: NURSING L&D Epidural Breakthrough Pain Update ONE (13:28)
[2023-12-22] MEDS ORDERED: ROPIVACAINE 0.5% 5 MG/ML 30 ML VIAL ONE (13:31)
[2023-12-22] MEDS ORDERED: LIDOCAINE 2%/EPINEPHRINE 1:200,000 20 ML PF ONE (13:31)
[2023-12-22] MEDS: ONDANSETRON INJ 2 MG/ML 2 ML VIAL IV PRN (14:34)
[2023-12-22] MEDS: fentaNYL citrate PF 100 MCG/2 ML VIAL EPI PRN (15:23)
--- NOTE | 2023-12-22 15:58 | Obstetrical Progress Note ---
Date of Service December 22, 2023 Assessment & Plan Admission and Anticipated Discharge Date Admission Date: December 21, 2023 Subjective Unable to check her earlier when she was very painful She had epidural redosed but still no relief VE; 8/ 90%/0 FHR categ I Ctxs q 2-3 min, Oxytocin was stopped per patient request Continue to monitor closely Will consult anesthesiology for pain control Results & Data Vital Signs (Past 12 Hours) Vital Signs Temp Pulse Resp BP Pulse Ox 12/22/23 15:52 99 H 95 12/22/23 15:49 85 142/84 H 12/22/23 15:47 93 H 96 12/22/23 15:42 94 H 98 12/22/23 15:37 95 12/22/23 15:37 94 H 12/22/23 15:37 85 93 12/22/23 15:32 96 H 136/85 96 12/22/23 15:31 83 94 12/22/23 15:28 76 145/78 H 12/22/23 15:27 83 97 12/22/23 15:26 82 175/85 H 12/22/23 15:25 101 H 91 12/22/23 15:22 93 H 98 12/22/23 15:17 100 H 137/80 97 12/22/23 15:13 101 H 94 12/22/23 15:12 36.8 C 100 H 18 98 12/22/23 15:07 96 12/22/23 15:07 92 H 12/22/23 15:07 88 94 12/22/23 15:02 97 H 144/75 H 94 12/22/23 15:00 98 H 94 12/22/23 14:57 102 H 92 12/22/23 14:55 107 H 93 12/22/23 14:52 95 H 97 12/22/23 14:49 97 H 92 12/22/23 14:47 92 H 97 12/22/23 14:42 105 H 97 12/22/23 14:41 103 H 94 12/22/23 14:37 100 H 99 12/22/23 14:35 94 H 146/67 H 12/22/23 14:32 97 H 98 12/22/23 14:30 108 H 91 12/22/23 14:27 107 H 96 12/22/23 14:22 95 H 97 12/22/23 14:21 94 H 92 12/22/23 14:18 98 H 122/58 L 12/22/23 14:17 97 12/22/23 14:17 97 H 12/22/23 14:17 100 H 129/64 12/22/23 14:15 102 H 92 12/22/23 14:14 96 H 129/60 12/22/23 14:12 98 H 98 12/22/23 14:11 101 H 165/77 H 12/22/23 14:07 95 H 98 12/22/23 14:06 93 H 85 L 12/22/23 14:03 95 H 20 151/65 H 12/22/23 14:02 98 H 98 12/22/23 13:59 93 H 94 12/22/23 13:57 96 H 96 12/22/23 13:52 99 H 99 12/22/23 13:51 98 H 90 12/22/23 13:48 111 H 139/77 12/22/23 13:47 107 H 98 12/22/23 13:45 91 H 94 12/22/23 13:42 91 H 98 12/22/23 13:38 88 93 12/22/23 13:37 89 97 12/22/23 13:32 96 12/22/23 13:32 97 H 12/22/23 13:32 83 127/69 12/22/23 13:27 87 97 12/22/23 13:22 89 136/68 95 12/22/23 13:17 98 12/22/23 13:17 82 12/22/23 13:17 98 H 178/94 H 12/22/23 13:14 88 94 12/22/23 13:12 87 98 12/22/23 13:08 90 93 12/22/23 13:07 93 H 96 12/22/23 13:02 75 137/73 97 12/22/23 12:58 85 90 12/22/23 12:57 90 97 12/22/23 12:52 89 96 12/22/23 12:48 84 133/73 12/22/23 12:47 90 98 12/22/23 12:42 90 98 12/22/23 12:37 86 96 12/22/23 12:32 97 12/22/23 12:32 85 12/22/23 12:32 82 128/64 12/22/23 12:27 87 97 12/22/23 12:22 89 97 12/22/23 12:18 89 107/58 L 12/22/23 12:17 90 96 12/22/23 12:12 86 95 12/22/23 12:07 89 95 12/22/23 12:02 18 12/22/23 12:02 18 12/22/23 12:02 96 12/22/23 12:02 89 12/22/23 12:02 92 H 122/75 12/22/23 11:59 91 H 94 12/22/23 11:57 92 H 96 12/22/23 11:52 87 97 12/22/23 11:47 96 12/22/23 11:47 79 12/22/23 11:47 77 127/68 12/22/23 11:42 94 H 97 12/22/23 11:37 86 96 12/22/23 11:32 80 130/64 96 12/22/23 11:31 82 94 12/22/23 11:27 86 97 12/22/23 11:25 84 94 12/22/23 11:22 91 H 95 12/22/23 11:18 83 136/64 12/22/23 11:17 87 97 12/22/23 11:12 86 96 12/22/23 11:07 94 H 97 12/22/23 11:02 86 96 12/22/23 11:01 16 12/22/23 11:01 36.6 C 16 12/22/23 11:00 90 128/79 12/22/23 10:57 91 H 95 12/22/23 10:54 92 H 133/84 12/22/23 10:52 89 97 12/22/23 10:49 86 128/84 12/22/23 10:47 86 97 12/22/23 10:45 83 130/84 12/22/23 10:42 87 97 12/22/23 10:39 87 136/72 12/22/23 10:37 97 12/22/23 10:37 84 12/22/23 10:37 87 94 12/22/23 10:34 88 136/73 12/22/23 10:32 85 96 12/22/23 10:28 90 133/65 12/22/23 10:27 93 H 97 12/22/23 10:26 96 H 135/66 12/22/23 10:24 96 H 127/71 12/22/23 10:22 98 12/22/23 10:22 97 H 12/22/23 10:22 91 H 129/76 12/22/23 10:21 88 138/82 12/22/23 10:20 82 156/72 H 12/22/23 10:19 107 H 143/90 H 12/22/23 10:17 99 H 96 12/22/23 10:12 102 H 98 12/22/23 10:07 101 H 98 12/22/23 10:03 101 H 117/69 12/22/23 10:02 101 H 98 12/22/23 09:57 100 H 98 12/22/23 09:52 101 H 98 12/22/23 09:47 98 H 98 12/22/23 09:42 88 98 12/22/23 09:37 95 H 98 12/22/23 07:00 86 126/78 12/22/23 06:59 20 12/22/23 06:59 36.8 C 20 12/22/23 04:11 36.7 C 85 18 118/61
--- NOTE | 2023-12-22 16:11 | Anesthesia Procedure Note ---
Date of Service December 22, 2023 Anesthesia Epidural Re-Dose Vital Signs Temp Pulse Resp BP Pulse Ox 98.2 F 101 H 18 125/64 99 12/22/23 15:12 12/22/23 16:09 12/22/23 15:12 12/22/23 16:09 12/22/23 16:07 Notes Pain Intensity: 5 Dilatation (cm): 8.5 Effacement (%): 100 Called by nursing to evaluate epidural as the patient is having increased pain. The epidural was re-dosed with the following medications (all medications via epidural route) after negative aspiration of the epidural catheter for CSF/HEME. 2% lidocaine with epi (5ml) with 100 mcg Fentanyl After Epidural Re-Dose Mental Status: alert / awake / arousable Pain: improving with treatment Airway Patency, RR, SpO2: stable & adequate BP & HR: stable & adequate
--- NOTE | 2023-12-22 16:19 | Communication Note ---
Date of Service: December 22, 2023 evaluated patient after multiple re-doses. patient with intact cold sensation bilaterally, decision made to remove and replace epidural. epidural removed, tip intact. Area prepped and draped, timeout performed. 2% lidocaine used for local, 17 G thouy advanced with MARCO to find epidural space, CSE with 26G sprotte adminsitered with 0.25% bupiv (0.8ml), test dose (2% lido/epi 3 ml given with negative response), aspiration negative. Patient reported adequate relief 5 minutes after procedure. Epidural restarted with previous settings.
[2023-12-22] MEDS: METHYLERGONOVINE MALEATE 0.2 MG/ML AMP IM STA (21:19)
[2023-12-22] MEDS ORDERED: OXYTOCIN 30 UNITS/NSS 30 UNITS/500 ML BAG IV PRN (21:39)
[2023-12-22] MEDS ORDERED: oxyCODONE/ACETAMINOPHEN 5mg/325mg TAB PO PRN (21:39)
[2023-12-22] MEDS ORDERED: ACETAMINOPHEN 325 MG TAB PO PRN (21:39)
[2023-12-22] MEDS ORDERED: bisacodyL 10 MG SUPP PR PRN (21:39)
[2023-12-22] MEDS ORDERED: HYDROCORTISONE ACETATE 25 MG SUPP PR PRN (21:39)
--- NOTE | 2023-12-22 21:51 | Delivery Summary ---
Vaginal Delivery Summary Date of Service December 22, 2023 Vaginal Delivery Summary procedure: vaginal delivery, repair of partial third-degree perineal laceration, polypectomy from anterior vaginal wall Patient was found to be fully dilated and desires to push. She pushed for about half an hour and delivered the head and then shoulders with minimal traction without difficulty. The baby was handed off to the mother. The cord was clampedx2 and cut at 1 minute. the baby was vigorously moving and crying. The vagina and perineum were checked and found to have Partial third degree perineal laceration. Rectal exam was done and noted some sphincter tone. The gloves were changes. Allis clamps were used to grasp's external sphincter muscles and surrounding muscular tissue and brought to the midline, repaired with multiple figure of 8 stitches with 2-0 Vicryl. more sutures were placed around perineal body muscles to support the sphincter area. The vaginal mucosa was repaired with another 2/0 vicryl and skin on subcuticular fashion. The placenta was delivered spontaneously as intact and complete. The uterus was explored and emptied off blood clots and otherwise it was empty. QBL was 644 ml. The fundus was firm The baby was a viable male infant, Apgars 8/9, the weight is pending The mother and the baby tolerated the procedure well. No complications happened and I was present during whole procedure.
--- NOTE | 2023-12-22 22:34 | Anesthesia Procedure Note ---
Date of Service December 22, 2023 Anesthesia Post Epidural Note Vital Signs Vital Signs: Temp Pulse Resp BP Pulse Ox O2 Del Method 98.1 F 94 H 16 148/65 H 98 Room Air 12/22/23 22:30 12/22/23 22:32 12/22/23 22:30 12/22/23 22:30 12/22/23 22:32 12/22/23 19:09 Notes Mental Status: alert / awake / arousable and participated in evaluation Nausea / Vomiting: adequately controlled Pain: adequately controlled Airway Patency, RR, SpO2: stable & adequate BP & HR: stable & adequate Hydration State: stable & adequate Neuraxial Anesthesia: was administered and sensory block is resolving Anesthetic Complications: no major complications apparent and Pt Satisfied with anesthetic care Epidural: Removed without complications and With tip intact
[2023-12-22] MEDS: IBUPROFEN 600 MG TAB PO PRN (23:23)
[2023-12-22] MEDS: METHYLERGONOVINE MALEATE 0.2 MG/ML AMP IM ONE (23:30)
[2023-12-22] MEDS: MEASLES, MUMPS & RUBELLA VIRUS VACCINE (MMR) 0.5ML VIAL SQ ONE (23:31)
[2023-12-22] MEDS: METHYLERGONOVINE MALEATE 0.2 MG TAB PO SCH (23:58)
[2023-12-23] MEDS: BENZOCAINE 20% SPRY 85 APPLN/85 GM CAN EXT PRN (00:18)
[2023-12-23 06:41] LABS: Hematocrit (blood only) 34.9 % (37.0-47.0); Hemoglobin 11.9 g/dl (12.0-16.0); Mean Corpuscular Hemoglobin 30.1 pg (25.0-34.0); Mean Corpuscular Hgb Conc 34.1 g/dL (32.0-36.0); Mean Corpuscular Volume 88.1 fL (80.0-100.0); Mean Platelet Volume 11.9 fL (9.4-12.4); Platelet Count 158 K/uL (130-400); RDW Coefficient of Variation 13.5 % (11.5-14.5); RDW Standard Deviation 44.1 fL (36.4-46.3); Red Blood Count 3.96 M/uL (4.20-5.40); White Blood Count 20.26 K/ul (4.8-10.8)
[2023-12-23] MEDS: METHYLERGONOVINE MALEATE 0.2 MG/ML AMP ONE (06:46)
[2023-12-23] MEDS: DIPHTHER/TETAN/PERTUS Vaccine (Tdap, Adol/Adult) 0.5mL IM ONE (07:13)
--- NOTE | 2023-12-23 08:17 | Obstetrical Progress Note ---
Date of Service December 23, 2023 Assessment & Plan Admission and Anticipated Discharge Date Admission Date: December 21, 2023 Subjective Patient is seen and examined. She feels well, no complaints. Ambulating without dizziness Voiding without difficulty Tolerating regular diet with out N&V Bleeding is minimal No fever/ chills/ CP/ SOB/ N&V/ Leg pain Breast feeding without problems Vital Signs Height Weight Body Mass Index Blood Pressure Blood Pressure Position Temperature Temperature Source 5 ft 7 in 94.347 kg 32.5 135/85 Semi-fowlers 36.7 C Oral 12/22/23 10:04 12/22/23 10:04 12/21/23 15:57 12/23/23 03:35 12/23/23 03:35 12/23/23 03:35 12/23/23 03:35 Pulse Rate Respiratory Rate Pulse Oximetry 84 16 95 12/23/23 03:35 12/23/23 03:35 12/22/23 23:42 Lab Results 12/21/23 12/21/23 12/22/23 Range/Units 17:37 17:46 11:06 WBC 10.46 (4.8-10.8) K/ul RBC 4.21 (4.20-5.40) M/uL Hgb 12.8 (12.0-16.0) g/dl Hct 37.2 (37.0-47.0) % MCV 88.4 (80.0-100.0) fL MCH 30.4 (25.0-34.0) pg MCHC 34.4 (32.0-36.0) g/dL RDW Std Deviation 44.3 (36.4-46.3) fL RDW Coeff of Malachi 13.6 (11.5-14.5) % Plt Count 194 (130-400) K/uL MPV 12.0 (9.4-12.4) fL POC Glucose 78 127 H (70-99) mg/dl Treponema pallidum Ab Negative (Negative) 12/23/23 Range/Units 06:03 WBC 20.26 H (4.8-10.8) K/ul RBC 3.96 L (4.20-5.40) M/uL Hgb 11.9 L (12.0-16.0) g/dl Hct 34.9 L (37.0-47.0) % MCV 88.1 (80.0-100.0) fL MCH 30.1 (25.0-34.0) pg MCHC 34.1 (32.0-36.0) g/dL RDW Std Deviation 44.1 (36.4-46.3) fL RDW Coeff of Malachi 13.5 (11.5-14.5) % Plt Count 158 (130-400) K/uL MPV 11.9 (9.4-12.4) fL POC Glucose (70-99) mg/dl Treponema pallidum Ab (Negative) PE: General: Alert, orientedx3, NAD Abd: soft, NT, fundus firm, below Umbilicus Perineum intact, Lochia rubra minimal Ext; NT, no edema AP: 33 yo s/p , ppd# 1 VSS Afebrile doing well Elevated WBCC, mom baby both afebrile, will start PO AB, repeat CBC in am Continue routine care All questions were answered D/C home tomorrow Results & Data Vital Signs (Past 12 Hours) Vital Signs Temp Pulse Pulse Resp BP BP Pulse Ox 12/23/23 03:35 36.7 C 84 16 135/85 12/23/23 00:40 37.0 C 93 H 16 136/92 12/22/23 23:45 36.9 C 97 H 18 144/70 H 12/22/23 23:43 97 H 144/70 H 12/22/23 23:42 96 H 95 12/22/23 23:37 97 H 95 12/22/23 23:36 95 H 93 12/22/23 23:32 104 H 96 12/22/23 23:28 90 151/70 H 12/22/23 23:27 95 H 97 12/22/23 23:22 103 H 98 12/22/23 23:17 92 H 96 12/22/23 23:15 36.8 C 104 H 16 96 12/22/23 23:13 94 H 159/78 H 12/22/23 23:12 94 H 96 12/22/23 23:07 96 H 96 12/22/23 23:02 98 H 98 12/22/23 22:59 98 H 155/78 H 12/22/23 22:57 102 H 95 12/22/23 22:52 100 H 97 12/22/23 22:47 103 H 97 12/22/23 22:45 36.8 C 100 H 18 97 12/22/23 22:44 91 H 156/83 H 12/22/23 22:42 103 H 98 12/22/23 22:37 102 H 97 12/22/23 22:32 94 H 98 12/22/23 22:30 36.7 C 95 H 16 148/65 H 12/22/23 22:29 95 H 148/65 H 12/22/23 22:27 96 H 97 12/22/23 22:22 95 H 98 12/22/23 22:17 90 99 12/22/23 22:15 95 H 18 98 12/22/23 22:13 87 135/64 12/22/23 22:12 90 99 12/22/23 22:07 92 H 99 12/22/23 22:02 96 H 100 12/22/23 21:58 95 H 139/72 12/22/23 21:57 95 H 100 12/22/23 21:52 100 H 99 12/22/23 21:47 94 H 100 12/22/23 21:43 103 H 140/68 12/22/23 21:42 115 H 100 12/22/23 21:37 105 H 98 12/22/23 21:32 108 H 99 12/22/23 21:28 107 H 125/59 L 12/22/23 21:27 111 H 99 12/22/23 21:22 117 H 99 12/22/23 21:17 133 H 98 12/22/23 21:13 115 H 136/59 L 12/22/23 21:12 118 H 97 12/22/23 21:07 115 H 98 12/22/23 21:02 125 H 99 12/22/23 20:58 123 H 121/59 L 12/22/23 20:57 120 H 98 12/22/23 20:52 118 H 97 12/22/23 20:47 36.7 C 118 H 97 12/22/23 20:46 118 H 90 12/22/23 20:42 121 H 97 12/22/23 20:37 121 H 98 12/22/23 20:35 119 H 92 12/22/23 20:32 118 H 96 12/22/23 20:29 122 H 12/22/23 20:29 103/56 L 12/22/23 20:29 118 H 108/61 12/22/23 20:27 117 H 91 12/22/23 20:22 124 H 99 12/22/23 20:17 107 H 100 O2 Del Method 12/23/23 03:35 Room Air 12/23/23 00:40 Room Air 12/22/23 23:45 12/22/23 23:43 12/22/23 23:42 12/22/23 23:37 12/22/23 23:36 12/22/23 23:32 12/22/23 23:28 12/22/23 23:27 12/22/23 23:22 12/22/23 23:17 12/22/23 23:15 12/22/23 23:13 12/22/23 23:12 12/22/23 23:07 12/22/23 23:02 12/22/23 22:59 12/22/23 22:57 12/22/23 22:52 12/22/23 22:47 12/22/23 22:45 12/22/23 22:44 12/22/23 22:42 12/22/23 22:37 12/22/23 22:32 12/22/23 22:30 12/22/23 22:29 12/22/23 22:27 12/22/23 22:22 12/22/23 22:17 12/22/23 22:15 12/22/23 22:13 12/22/23 22:12 12/22/23 22:07 12/22/23 22:02 12/22/23 21:58 12/22/23 21:57 12/22/23 21:52 12/22/23 21:47 12/22/23 21:43 12/22/23 21:42 12/22/23 21:37 12/22/23 21:32 12/22/23 21:28 12/22/23 21:27 12/22/23 21:22 12/22/23 21:17 12/22/23 21:13 12/22/23 21:12 12/22/23 21:07 12/22/23 21:02 12/22/23 20:58 12/22/23 20:57 12/22/23 20:52 12/22/23 20:47 12/22/23 20:46 12/22/23 20:42 12/22/23 20:37 12/22/23 20:35 12/22/23 20:32 12/22/23 20:29 12/22/23 20:29 12/22/23 20:29 12/22/23 20:27 12/22/23 20:22 12/22/23 20:17
[2023-12-23] MEDS: AMOXICILLIN/CLAVULANATE 875 MG TAB PO SCH (08:37)
[2023-12-23] MEDS: PRENATAL VITAMIN 1 TAB PO SCH (08:40)
[2023-12-23] MEDS: DOCUSATE SODIUM 100 MG CAP PO SCH (08:41)
[2023-12-23] MEDS: FERROUS SULFATE 325 MG TAB PO SCH (08:41)
[2023-12-23] MEDS: bisacodyL 5 MG TABEC PO SCH (19:45)
[2023-12-23 20:09] VITALS: RESP 16
[2023-12-24 06:56] LABS: Basophils # (auto) 0.02 K/uL (0.00-0.20); Basophils % (auto) 0.1 %; Eosinophils # (auto) 0.26 K/uL (0.00-0.50); Eosinophils % (auto) 1.9 %; Hematocrit (blood only) 30.7 % (37.0-47.0); Hemoglobin 10.2 g/dl (12.0-16.0); Immature Granulocytes # (auto) 0.06 K/uL (0.01-0.20); Immature Granulocytes % (auto) 0.4 %; Lymphocytes # (auto) 1.62 K/uL (1.20-3.40); Lymphocytes % (auto) 11.6 %; Mean Corpuscular Hemoglobin 29.9 pg (25.0-34.0); Mean Corpuscular Hgb Conc 33.2 g/dL (32.0-36.0); Mean Platelet Volume 11.6 fL (9.4-12.4); Monocytes # (auto) 0.72 K/uL (0.11-0.59); Monocytes % (auto) 5.2 %; Neutrophils # (auto) 11.28 K/uL (1.40-6.50); Neutrophils % (auto) 80.8 %; Platelet Count 143 K/uL (130-400); RDW Coefficient of Variation 13.8 % (11.5-14.5); RDW Standard Deviation 45.3 fL (36.4-46.3); Red Blood Count 3.41 M/uL (4.20-5.40); White Blood Count 13.96 K/ul (4.8-10.8)
[2023-12-24 07:42] VITALS: BP 123/86; TEMP 97.3; O2SAT 98
[2023-12-24 10:43] VITALS: PULSE 73
--- NOTE | 2023-12-24 11:41 | Obstetrical Progress Note ---
Date of Service December 24, 2023 Subjective Ambulation: ambulating normally Voiding: no voiding problems Passing Gas:: Yes Diet Tolerance:: clear liquids Lochia:: Small Feeding Type:: breast feeding Current Pain Level(1-10): 0 doing well Physical Exam Constitutional WD/WN, vitals as above Skin no rashes, warm and dry Neurologic patellar DTR's 2+ bilat, sensation intact Results & Data Vital Signs (Past 12 Hours) Vital Signs Temp Pulse Pulse Resp BP Pulse Ox O2 Del Method 12/24/23 10:41 36.3 C L 73 87 16 123/86 98 12/24/23 07:08 36.3 C L 87 16 123/86 98 Room Air Laboratory Results Laboratory Results - last 72 hr 12/21/23 12/21/23 12/22/23 17:37 17:46 11:06 WBC 10.46 RBC 4.21 Hgb 12.8 Hct 37.2 MCV 88.4 MCH 30.4 MCHC 34.4 RDW Std Deviation 44.3 RDW Coeff of Malachi 13.6 Plt Count 194 MPV 12.0 Immature Gran % (Auto) Neut % (Auto) Lymph % (Auto) Charles % (Auto) Eos % (Auto) Baso % (Auto) Neut # (Auto) Lymph # (Auto) Charles # (Auto) Eos # (Auto) Baso # (Auto) Immature Gran # (Auto) POC Glucose 78 127 H Treponema pallidum Ab Negative 12/23/23 12/24/23 06:03 06:32 WBC 20.26 H 13.96 H RBC 3.96 L 3.41 L Hgb 11.9 L 10.2 L Hct 34.9 L 30.7 L MCV 88.1 90.0 MCH 30.1 29.9 MCHC 34.1 33.2 RDW Std Deviation 44.1 45.3 RDW Coeff of Malachi 13.5 13.8 Plt Count 158 143 MPV 11.9 11.6 Immature Gran % (Auto) 0.4 Neut % (Auto) 80.8 Lymph % (Auto) 11.6 Charles % (Auto) 5.2 Eos % (Auto) 1.9 Baso % (Auto) 0.1 Neut # (Auto) 11.28 H Lymph # (Auto) 1.62 Charles # (Auto) 0.72 H Eos # (Auto) 0.26 Baso # (Auto) 0.02 Immature Gran # (Auto) 0.06 POC Glucose Treponema pallidum Ab
== END 2023-12-24 11:11 | disposition home or self-care (01) | DRG 768 ==
LOC: 4S1 15:38 → 4E2 12-23 00:20